=== PATIENT | male | born 1950 | race Caucasian/White ===

== ENCOUNTER → 2023-01-21 | Outpatient (CLI) | payer MEDICARE, OTHER, SELFPAY | END | disposition home or self-care (01) | PROVIDERS: Referring Provider Internal Medicine Cardiovascular Disease; Visit Provider Internal Medicine Cardiovascular Disease | DX: I48.0 Paroxysmal atrial fibrillation (principal) | CPT/HCPCS: 93225; 93226 ==

== ENCOUNTER → 2023-05-26 | Outpatient (CLI) | payer MEDICARE, OTHER, SELFPAY ==
--- OUTSIDE RECORDS SUMMARY | 2023-05-26 06:08 | XMS RPT_ITS | CCD ---
Author Name Unknown Address [address] [place] [address] Organization [facility] Care Team Providers Care Lithographic Artist Name Role Phone Gwendolyn Ricketts Primary Care Provider GWENDOLYN RICKETTS Primary Care Unavailable BEVERLY WHARTON Referring Unavailable BHUMI CAAL Attending Unavailab ENZO Morrell BABY Admitting Unavailable GWENDOLYN RICKETTS Primary Care Unavailable BEVERLY WHARTON Attending Unavailable BEVERLY WHARTON Admitting Unavailable Rodri Dodson DO Unavailable Tamara Chapa Primary Care Provider Rodri Dodson DO Unavailable Snaa CASPER Tamara Primary Care Provider CAMILA CASTANEDA MD Attending Unavailable SANA, TAMARA PAC Consulting Unavailable CAMILA CASTANEDA MD Admitting Unavailable CAMILA CASTANEDA MD Primary Care Unavailable PROVIDER, UNKNOWN Consulting Unavailable CAMILA CASTANEDA MD Attending Unavailable SANA, TAMARA PAC Consulting Unavailable CAMILA CASTANEDA MD Admitting Unavailable CAMILA CASTANEDA MD Primary Care Unavailable PROVIDER, UNKNOWN Consulting Unavailable CAMILA CASTANEDA MD Admitting Unavailable CAMILA CASTANEDA MD Primary Care Unavailable CAMILA CASTANEDA MD Attending Unavailable CAMILA CASTANEDA MD Attending Unavailable HOOD, TAMARA PAC Consulting Unavailable CAMILA CASTANEDA MD Admitting Unavailable CAMILA CASTANEDA MD Primary Care Unavailable PROVIDER, UNKNOWN Consulting Unavailable CAMILA CASTANEDA MD Admitting Unavailable CAMILA CASTANEDA MD Primary Care Unavailable CAMILA CASTANEDA MD Attending Unavailable SHAWNA CHASE Admitting Unavailable SHAWNA CHASE Primary Care Unavailable SHAWNA CHASE Attending Unavailable HOOD, TAMARA PAC Consulting Unavailable HOOD, TAMARA PAC Attending Unavailable HOOD, TAMARA PAC Admitting Unavailable HOOD, TAMARA PAC Primary Care Unavailable PROVIDER, UNKNOWN Consulting Unavailable KEITH CORDERO, DR JAM Newby Attending Kiesha brumfield HOOD PA-C, TAMARA J Primary Care Unavailable RODRI DODSON Attending Unavailable HOOD, TAMARA Primary Care Unavailable RODRI DODSON Attending Unavailable HOOD, TAMARA Primary Care Unavailable RODRI DODSON Attending Unavailable HOOD, TAMARA Primary Care Unavailable HOOD PA-C, TAMARA Consulting Unavailable RAGNATHAN ELLIOTT, ELLIOTT ~[phone] [facility] Attending Unavailable RAGHUNATHAN ELLIOTT, ELLIOTT ~[phone] [facility] Admitting Unavailable HOOD PA-C, TAMARA Primary Care Unavailable RAGHUNATHAN ELLIOTT, ELLIOTT ~[phone] [facility] Consulting Unavailable HOOD PA-C, TAMARA Consulting Unavailable CAMILA CASTANEDA Admitting Unavailable CAMILA CASTANEDA Attending Unavailable HOOD PA-C~[id number], HOOD TAMARA Primary Care Unavailable HOOD PA-C, TAMARA Consulting Unavailable CAMILA CASTANEDA Consulting Unavailable CAMILA CASTANEDA Consulting Unavailable HOOD PA-C~[id number], HOOD TAMARA Primary Care Unavailable RAGHUNATHAN ELLIOTT, ELLIOTT ~[phone] [facility] Admitting Unavailable RAGHUNATHAN ELLIOTT, ELLIOTT ~[phone] [facility] Attending Unavailable HOOD PA-C, TAMARA Consulting Unavailable HOOD PA-C, TAMARA Consulting Unavailable RAGHUNATHAN ELLIOTT, ELLIOTT ~[phone] [facility] Consulting Unavailable RAGHUNATHAN, ELLIOTT Consulting Unavailable RAGHUNATHAN ELLIOTT, ELLIOTT ~[phone] [facility] Admitting Unavailable HOOD PA-C~[id number], HOOD TAMARA Primary Care Unavailable RAGHUNATHAN ELLIOTT, ELLIOTT ~[phone] [facility] Attending Unavailable HOOD PA-C, TAMARA Consulting Unavailable HOOD PA-C, TAMARA Consulting Unavailable Hood PA-C, Tamara J Unavailable Po CORDERO, Dr. Delacruz Unavailable Gwendolyn Ricketts MD Unavailable Physical Therapy Provider Unavailable Unavai lable [facility], ([place]) Unavailable Hermilo CORDERO, Dr. White Unavailable Dr. Rodri Dodson Unavailable Bindu CORDERO, Dr. Alvarenga Unavailable Dario CORDERO, Dr. Elias ([facility]) A Unavail able Dario CORDERO, Dr. Thakkar Unavailable Dahiana RIZVI, Dr. Radha Harrington Unavailable Hannah CORDERO, Dr. Wyatt Flowers Unavailable Dermatology Provider Unavailable Unavailable Oswald FARM FIELD MANAGER, Vijaya Unavailable Meek CORDERO, Dav Xie Unavailable Dwight FARM FIELD MANAGER, Nathaly Landrum Unavailable Unavailable Kenton FARM FIELD MANAGER, Jing C Unavailable Unavailable Gogoi (scribe), Hemanta Unavailable Unavaila ble Juanito FARM FIELD MANAGER, Radha Unavailable Unavailable Rian STARKEY, Delphine Sanchez Unavailable Eleanor Monae C Unavailable Unavailable Anthony MIRELES, Lyric Unavailable Unavailable Kvng FARM FIELD MANAGER, Edelmira Unavailable Unavailable Ramone FERREIRA, Delphine Meadows Unavailable Unavaila ble Bridger FARM FIELD MANAGER, Salma Unavailable Unavailable Dario FERREIRA, Karuna Unavailable [phone] Yeison FERREIRA, Yanique Cano Unavailable Unavailable Seth FARM FIELD MANAGER, Inna Unavailable Unavailable Mutersbaugh FARM FIELD MANAGER, Alexandria K Unavailable Unavai brissa Jorge PA-C, Namrata J Unavailable [phone] Bakari (Scribe), Ambrosio Unavailable Unavailab le Richert FARM FIELD MANAGER, Renee L Unavailable Unavailab le Tesha FARM FIELD MANAGER, Lauren M Unavailable Unavailab le Sander FARM FIELD MANAGER, Sonia Bradley Unavailable Unavailab lauro Mcintyre MD, Camila Meadows Unavailable Vess FARM FIELD MANAGER, Puja Pena Unavailable Unavailable Wengerd FARM FIELD MANAGER, Gisele Unavailable Unavailabl e Yue FARM FIELD MANAGER, Nasrin Marie Unavailable Unavaila ble Unavailable Unavailable Allergies Allergy Classification Reported Allergen(s) Allergy Type Date of Onset Reaction(s) Facility NEGATED: Highlighted row has been ruled out! (1 source) 12-27-2020 [facility] NEGATED: Highlighted row has been ruled out! (1 source) [facility] NEGATED: Highlighted row has been ruled out! (1 source) 12-27-2020 [facility] NEGATED: Highlighted row has been ruled out! (1 source) [facility] NEGATED: Highlighted row has been ruled out! (1 source) 12-27-2020 [facility] NEGATED: Highlighted row has been ruled out! (1 source) [facility] NEGATED: Highlighted row has been ruled out! (1 source) 12-27-2020 [facility] NEGATED: Highlighted row has been ruled out! (1 source) [facility] NEGATED: Highlighted row has been ruled out! (1 source) 12-27-2020 [facility] NEGATED: Highlighted row has been ruled out! (1 source) [facility] NEGATED: Highlighted row has been ruled out! (1 source) 12-27-2020 [facility] NEGATED: Highlighted row has been ruled out! (1 source) [facility] Medications Current Medications Medication Drug Class(es) Dates Sig (Normalized) Sig (Original) albuterol 90 mcg/actuation inhaler (2 sources) Start: 03-19-2020 take 2 puff(s) by mouth every four hours as needed for wheezing albuterol 90 mcg/actuation inhaler Inhale 2 (two) puffs by mouth every 4 (four) hours as needed for wheezing . 8.5 g 0 03/19/2020 Active Completed/Discontinued Medications Medication Drug Class(es) Dates Sig (Normalized) Sig (Original) acetaminophen 325 mg oral tablet (1 source) Start: 03-18-2020 End: 03-19-2020 take 1 tablet by mouth every four hours as needed 650 mg, Oral, Every 4 hours PRN, mild pain, fever 100.4 F or greater, headaches, Starting 03/18/20 at 1819 [id number] actuat albuterol 0.09 mg/actuat metered dose inhaler (6 sources) beta2-Adrenergic Agonist Start: 09-25-2011 End: 12-03-2011 albuterol 0.833 mg/ml / ipratropium bromide 0.167 mg/ml inhalation solution (8 sources) Anticholinergic, beta2-Adrenergic Agonist Start: 03-20-2022 End: 04-06-2023 Problems Problem Classification Problem Date Documented Da te Episodic/Chronic Acute bronchitis (20 sources) Acute bronchitis; Translations: [Acute bronchitis] 07-10-2014 Episodic Cardiac dysrhythmias (20 sources) Unspecified atrial fibrillation; Translations: [Atrial flutter] Onset: 08-26-2022 04-06-2023 Chronic Chronic obstructive pulmonary disease and bronchiectasis (20 sources) Bronchitis; Translations: [Bronchitis, not specified as acute or chronic] 07-10-2014 Episodic Chronic ulcer of skin (18 sources) Ulcer of toe; Translations: [Non-pressure chronic ulcer of other part of unspecified foot with unspecified severity] 08-10-2018 Chronic Coronary atherosclerosis and other heart disease (20 sources) Atherosclerotic heart disease of [place] coronary artery without angina pectoris; Translations: [Coronary arteriosclerosis] Onset: 08-25-2022 Chronic Deficiency and other anemia (12 sources) Deficiency anemias; Translations: [Nutritional anemia, unspecified] 08-10-2018 Episodic Diabetes mellitus with complications (20 sources) Type 2 diabetes mellitus; Translations: [Type 2 diabetes mellitus with hyperglycemia] 04-06-2023 Chronic Diabetes mellitus without complication (3 sources) Type 2 diabetes mellitus without complications; Translations: [TYPE 2 DM WITHOUT COMPLICATIONS] Onset: 02-26-2023 Chronic Disorders of lipid metabolism (20 sources) Pure hypercholesterolemia, unspecified; Translations: [Hyperlipidemia] Onset: 03-29-2020 04-06-2023 Chronic Disorders of teeth and jaw (18 sources) Dental christian present; Translations: [Other dental procedure status] 12-04-2020 Episodic Essential hypertension (20 sources) Essential (primary) hypertension; Translations: [Benign essential hypertension] Onset: 02-27-2023 07-10-2014 Chronic Fluid and electrolyte disorders (18 sources) Hyperpotassemia 08-10-2018 Episodic Genitourinary symptoms and ill-defined conditions (12 sources) Dysuria; Translations: [Dysuria] 07-10-2014 Episodic Heart valve disorders (1 source) Presence of other heart-valve replacement; Translations: [PRESENCE OTH HEART-VALVE REPLACEMNT] Onset: 08-26-2022 Chronic Heart valve disorders (12 sources) Heart murmur; Translations: [Cardiac murmur, unspecified] 08-10-2018 Episodic Immunizations and screening for infectious disease (20 sources) Requires vaccination; Translations: [Encounter for immunization] 09-27-2019 Episodic Intestinal infection (12 sources) Enteric campylobacteriosis; Translations: [Campylobacter enteritis] 08-10-2018 Episodic Malignant neoplasm without specification of site (3 sources) Malignant neoplastic disease; Translations: [Cancer (HCC)] 03-18-2020 Chronic Mycoses (20 sources) Tinea cruris; Translations: [Tinea cruris] 12-27-2020 Episodic Neoplasms of unspecified nature or uncertain behavior (3 sources) Neoplasm of uncertain behavior of skin; Translations: [Neoplasm of uncertain behavior of skin] Episodic Noninfectious gastroenteritis (12 sources) Gastroenteritis; Translations: [Noninfective gastroenteritis and colitis, unspecified] 07-10-2014 Episodic Nutritional deficiencies (1 source) Vitamin D deficiency, unspecified; Translations: [VITAMIN D DEFICIENCY UNSPECIFIED] Onset: 08-26-2022 Chronic Other aftercare (20 sources) Drug indicated; Translations: [Other carpet floor layer apprentice (current) drug therapy] 07-10-2014 Episodic Other aftercare (20 sources) Long-term current use of insulin; Translations: [inside solar sales consultant (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) use of insulin] 02-20-2023 Episodic Other and unspecified benign neoplasm (2 sources) Senile angioma; Translations: [Hemangioma of skin and subcutaneous tissue] 07-29-2022 Episodic Other connective tissue disease (12 sources) Tendinitis of knee; Translations: [Other specified enthesopathies of unspecified lower limb, excluding foot] 08-10-2018 Episodic Other connective tissue disease (12 sources) Hand pain; Translations: [Pain in left hand] 08-10-2018 Episodic Other diseases of veins and lymphatics (12 sources) Chronic acquired lymphedema; Translations: [Lymphedema, not elsewhere classified] 02-20-2023 Chronic Other gastrointestinal disorders (12 sources) Burping; Translations: [Eructation] 02-20-2023 Episodic Other lower respiratory disease (1 source) Hypoxia; Translations: [Hypoxia] Episodic Other lower respiratory disease (13 sources) Dyspnea; Translations: [Shortness of breath] 02-20-2023 Episodic Other male genital disorders (12 sources) Impotence of organic origin; Translations: [Male erectile dysfunction, unspecified] 08-10-2018 Chronic Other nervous system disorders (6 sources) Carpal tunnel syndrome of left wrist; Translations: [Carpal tunnel syndrome, left upper limb] 04-06-2023 Chronic Other non-epithelial cancer of skin (12 sources) History of squamous cell carcinoma of skin; Translations: [Personal history of other malignant neoplasm of skin] Onset: 01-14-2021 Resolved: 12-13-2020 Episodic Other non-traumatic joint disorders (20 sources) Pain in left knee; Translations: [Pain in joint, lower leg] 12-27-2020 Episodic Other non-traumatic joint disorders (12 sources) Shoulder pain; Translations: [Pain in unspecified shoulder] 08-10-2018 Episodic Other nutritional; endocrine; and metabolic disorders (20 sources) Body mass index 40+ - severely obese; Translations: [Body mass index (BMI) 45.0-49.9, adult] 07-14-2018 Chronic Other nutritional; endocrine; and metabolic disorders (20 sources) Morbid obesity; Translations: [Morbid (severe) obesity due to excess calories] 04-06-2023 Chronic Other nutritional; endocrine; and metabolic disorders (1 source) Overweight; Translations: [OVERWEIGHT] Onset: 02-27-2023 Episodic Other screening for suspected conditions (not mental disorders or infectious disease) (20 sources) Elevated prostate specific antigen [PSA]; Translations: [Patient encounter status] 08-10-2018 Episodic Other skin disorders (15 sources) Actinic keratosis; Translations: [Actinic keratosis] Episodic Other skin disorders (2 sources) Seborrheic keratosis; Translations: [Other seborrheic keratosis] 07-29-2022 Episodic Other skin disorders (12 sources) Skin tag; Translations: [Other hypertrophic disorders of the skin] 08-10-2018 Episodic Other upper respiratory disease (12 sources) Chronic rhinitis; Translations: [Chronic rhinitis] 02-20-2023 Chronic Other upper respiratory infections (20 sources) Sinusitis; Translations: [Chronic sinusitis, unspecified] 04-06-2023 Chronic Other upper respiratory infections (12 sources) Acute sinusitis, unspecified 07-10-2014 Episodic Pneumonia (except that caused by tuberculosis or sexually transmitted disease) (7 sources) Infective pneumonia; Translations: [Pneumonia] 10-25-2018 Episodic Residual codes; unclassified (12 sources) Reduced libido; Translations: [Decreased libido] 08-10-2018 Episodic Residual codes; unclassified (12 sources) Edema 08-10-2018 Episodic Skin and subcutaneous tissue infections (18 sources) Cellulitis; Translations: [Cellulitis, unspecified] 08-10-2018 Episodic Sprains and strains (12 sources) Strain of hamstring muscle; Translations: [Strain of muscle, fascia and tendon of the posterior muscle group at thigh level, right thigh, initial encounter] 08-10-2018 Episodic Thyroid disorders (1 source) Hypothyroidism, unspecified; Translations: [HYPOTHYROIDISM UNSPECIFIED] Onset: 02-27-2023 Chronic Unclassified (5 sources) COVID-19; Translations: [COVID-19] Onset: 03-18-2020 03-18-2020 Unclassified (6 sources) 02-20-2023 Urinary tract infections (12 sources) Urinary tract infectious disease; Translations: [Urinary tract infection, site not specified] 07-10-2014 Episodic Viral infection (20 sources) Other specified viral infection; Translations: [Disease caused by 2019-nCoV] 02-20-2023 Episodic Results Test Name Value Interpretation Reference Range Facil ity Vital Signs Date Time Vital Sign Value Performing Clinician Facility 04-06-2023 08:36-0500 Body height 170.18 cm Delphine Pack RN [facility] 04-06-2023 08:36-0500 Body mass index (BMI) [Ratio] 41.35 kg/m2 Delphine Pack RN [facility] 04-06-2023 08:36-0500 Body surface area Derived from formula 2.28 m2 [facility]. 04-06-2023 08:36-0500 Body weight 119.75 kg Delphine Pack [facility].; [facility]. 04-06-2023 08:36-0500 Diastolic blood pressure 70 mm[Hg] Delphine Pack [facility].; [place] [facility]. 04-06-2023 08:36-0500 Heart rate 75 /min Delphine Pack RN [facility].; [facility]. 04-06-2023 08:36-0500 Systolic blood pressure 108 mm[Hg] Delphine Pack RN [facility].; [facility]. 02-20-2023 14:43-0500 Body height 170.18 cm Lyric Curz MA [facility].; [place] [facility]. 02-20-2023 14:43-0500 Body mass index (BMI) [Ratio] 42.91 kg/m2 Lyric Cruz [facility].; [facility]. 02-20-2023 14:43-0500 Body surface area Derived from formula 2.31 m2 Lyric Cruz MA [facility].; [employer] [facility]. 02-20-2023 14:43-0500 Body weight 124.29 kg Lyric Cruz [facility].; [facility]. 02-20-2023 14:43-0500 Diastolic blood pressure 82 mm[Hg] Lyric Cruz MA [place] [facility].; [employer]. 02-20-2023 14:43-0500 Heart rate 52 /min Lyric Cruz [facility].; [employer]. 02-20-2023 14:43-0500 Inhaled oxygen concentration 20 % Lyric Cruz [facility].; [employer] [facility]. 02-20-2023 14:43-0500 SaO2% (BldA) [Mass fraction] 98 % Lyric Cruz MA [facility], [facility].; [employer] [facility]. 02-20-2023 14:43-0500 Systolic blood pressure 165 mm[Hg] Lyric rCuz MA [facility], [facility].; [employer] 10-06-2022 09:08-0400 Body height 170.18 cm Edelmira Calderon LPN [facility], [facility].; [facility]. 10-06-2022 09:08-0400 Body mass index (BMI) [Ratio] 41.66 kg/m2 Edelmira Calderon LPN [facility], [facility].; [facility] [facility]. 10-06-2022 09:08-0400 Body surface area Derived from formula 2.28 m2 Edelmira Calderon LPN [facility], [facility].; [facility], [facility]. 10-06-2022 09:08-0400 Body weight 120.66 kg Edelmira Calderon LPN [facility].; [employer] [facility]. 10-06-2022 09:08-0400 Diastolic blood pressure 71 mm[Hg] Edelmira Calderon LPN [facility].; [employer] [facility]. 10-06-2022 09:08-0400 Heart rate 61 /min Edelmira Calderon LPN [facility].; [employer] [facility]. 10-06-2022 09:08-0400 Systolic blood pressure 124 mm[Hg] Edelmira Calderon LPN [facility], [facility].; [employer], [facility]. 04-03-2022 09:42-0500 Body height 170.18 cm Lyric Cruz MA [facility], [facility].; [employer], [facility]. 04-03-2022 09:42-0500 Body mass index (BMI) [Ratio] 44.17 kg/m2 Lyric Cruz MA [facility], [facility].; [employer] 04-03-2022 09:42-0500 Body surface area Derived from formula 2.34 m2 Lyric Cruz MA [facility], [facility].; [employer], [employer]. 04-03-2022 09:42-0500 Body weight 127.92 kg Lyric Cruz MA [facility], [facility].; [employer]. 04-03-2022 09:42-0500 Diastolic blood pressure 84 mm[Hg] Lyric Cruz MA [facility], [facility].; [employer] 04-03-2022 09:42-0500 Heart rate 72 /min Lyric Cruz MA [facility], [facility].; [employer] 04-03-2022 09:42-0500 Systolic blood pressure 142 mm[Hg] Lyric Cruz MA [facility], [facility].; [employer] [facility], [facility]. 03-20-2022 09:07-0500 Body height 170.18 cm Lyric Cruz MA [facility], [facility].; [facility] [facility], [facility]. 03-20-2022 09:07-0500 Body mass index (BMI) [Ratio] 45.42 kg/m2 Lyric Cruz MA [facility], [facility].; [employer], [facility]. 03-20-2022 09:07-0500 Body surface area Derived from formula 2.37 m2 Lyric Cruz MA [place] [employer] [facility].; [employer], [employer]. 03-20-2022 09:07-0500 Body weight 131.54 kg Lyric Cruz MA [facility], [facility].; [employer] 03-20-2022 09:07-0500 Diastolic blood pressure 79 mm[Hg] Lyric Cruz MA [facility] [employer] [facility] [employer]. 03-20-2022 09:07-0500 Heart rate 71 /min Lyric Cruz MA [facility] [employer] [facility].; [employer]. 03-20-2022 09:07-0500 Inhaled oxygen concentration 20 % Lyric Cruz MA [employer] [facility].; [facility]. 03-20-2022 09:07-0500 SaO2% (BldA) [Mass fraction] 97 % Lyric Cruz MA [facility] [employer] [facility], [facility].; [employer]. 03-20-2022 09:07-0500 Systolic blood pressure 168 mm[Hg] Lyric Cruz MA [facility] [employer] [facility] [employer].; [facility]. 03-03-2022 09:31-0500 Body height 170.18 cm Delphine Pack RN [employer] [email or web address].; [facility]. 03-03-2022 09:31-0500 Body mass index (BMI) [Ratio] 43.07 kg/m2 Delphine Pack RN [employer] [email or web address].; [facility]. 03-03-2022 09:31-0500 Body surface area Derived from formula 2.32 m2 Delphine Pack RN [employer].; [employer]. 03-03-2022 09:31-0500 Body temperature 97.8 [degF] Delphine Pack RN [employer].; [employer]. 03-03-2022 09:31-0500 Body weight 124.74 kg Delphine Pack RN [employer].; [employer]. 03-03-2022 09:31-0500 Diastolic blood pressure 63 mm[Hg] Delphine Pack RN [employer].; [employer]. 03-03-2022 09:31-0500 Heart rate 65 /min Delphine Pack RN [employer].; [employer]. 03-03-2022 09:31-0500 Inhaled oxygen concentration 20 % Delphine Pack RN [employer].; [employer]. 03-03-2022 09:31-0500 SaO2% (BldA) [Mass fraction] 97 % Delphine Pack RN [employer].; [employer]. 03-03-2022 09:31-0500 Systolic blood pressure 123 mm[Hg] Delphine Pack RN [employer] [employer] 12-17-2021 09:28-0400 Body height 170.18 cm Delphine Pack RN [employer].; [employer]. 12-17-2021 09:28-0400 Body mass index (BMI) [Ratio] 41.66 kg/m2 Delphine Pack RN [facility].; [facility]. 12-17-2021 09:28-0400 Body surface area Derived from formula 2.28 m2 Delphine Pack RN [facility].; [facility]. 12-17-2021 09:28-0400 Body temperature 98 [degF] Delphine Pack RN [facility].; [facility]. 12-17-2021 09:28-0400 Body weight 120.66 kg Delphine Pack RN [facility].; [facility]. 12-17-2021 09:28-0400 Diastolic blood pressure 71 mm[Hg] Delphine Pack RN [facility].; [place] [employer] [facility]. 12-17-2021 09:28-0400 Heart rate 74 /min Delphine Pack RN [facility].; [place] [employer] [facility]. 12-17-2021 09:28-0400 Inhaled oxygen concentration 20 % Delphine Pack RN [facility].; [facility]. 12-17-2021 09:28-0400 SaO2% (BldA) [Mass fraction] 97 % Delphine Pack RN [facility].; [facility] [employer] [facility]. 12-17-2021 09:28-0400 Systolic blood pressure 118 mm[Hg] Delphine Pack RN [facility].; [facility] [employer] [facility]. 10-01-2021 09:58-0400 Body height 170.18 cm Delphine Pack RN [place] [employer] [facility].; [facility] [employer] [facility]. 10-01-2021 09:58-0400 Body mass index (BMI) [Ratio] 42.6 kg/m2 Delphine Pack RN [place] [employer] [facility].; [facility] [facility]. 10-01-2021 09:58-0400 Body surface area Derived from formula 2.3 m2 Delphine Pack RN [facility].; [employer] [facility], [facility]. 10-01-2021 09:58-0400 Body weight 123.38 kg Delphine Pack RN [facility], [facility].; [facility] [facility], Inc. 10-01-2021 09:58-0400 Diastolic blood pressure 72 mm[Hg] Delphine Pack RN [facility], [facility].; [employer] Inc[employer] 10-01-2021 09:58-0400 Heart rate 59 /min Delphine Pack RN [facility].; [employer] 10-01-2021 09:58-0400 Systolic blood pressure 130 mm[Hg] Delphine Pack RN [facility], [facility].; [facility] [facility], Inc. 03-28-2021 10:01-0500 Body height 170.18 cm Salma Sparks LPN [facility], Inc.; [employer] [facility], Inc. 03-28-2021 10:01-0500 Body mass index (BMI) [Ratio] 44.48 kg/m2 Salma Sparks LPN [facility], Inc.; [employer] [facility], Inc. 03-28-2021 10:01-0500 Body surface area Derived from formula 2.35 m2 Salma Sparks LPN [place] [employer] [facility], Inc.; [employer] 03-28-2021 10:01-0500 Body weight 128.82 kg Salma Sparks LPN [place] [employer] [facility], Inc.; [employer] 03-28-2021 10:01-0500 Diastolic blood pressure 75 mm[Hg] Salma Sparks LPN [place] [employer] [facility], [facility].; [employer] [facility], [facility]. 03-28-2021 10:01-0500 Heart rate 76 /min Salma Sparks LPN [place] [employer] [facility], Inc.; [employer] 03-28-2021 10:01-0500 Systolic blood pressure 127 mm[Hg] Salma Sparks LPN [place] [employer] [facility], Inc.; [employer] 12-27-2020 13:44-0400 Body height 170.18 cm Salma Sparks LPN [facility], Inc.; [employer] [facility], [facility]. 12-27-2020 13:44-0400 Body mass index (BMI) [Ratio] 44.32 kg/m2 Salma Sparks LPN [facility], Inc.; [facility] 12-27-2020 13:44-0400 Body surface area Derived from formula 2.34 m2 Salma Sparks LPN [facility], Inc.; [facility], [facility]. 12-27-2020 13:44-0400 Body weight 128.37 kg Salma Sparks LPN [facility], [facility].; [facility], [facility]. 12-27-2020 13:44-0400 Diastolic blood pressure 76 mm[Hg] Salma Sparks LPN [facility], Inc.; [place] [employer] [facility], [facility]. 12-27-2020 13:44-0400 Heart rate 80 /min Salma Sparks LPN [facility], Inc.; [place] [employer] [facility], [facility]. 12-27-2020 13:44-0400 Systolic blood pressure 119 mm[Hg] Salma Sparks LPN [facility], [facility].; [employer] [facility], [facility]. 09-27-2020 08:06-0400 Body height 170.18 cm Edelmira Calderon LPN [facility], [facility].; [place] [employer] [facility], [facility]. 09-27-2020 08:06-0400 Body mass index (BMI) [Ratio] 44.32 kg/m2 Edelmira Calderon LPN [facility], Inc.; [place] [employer] [facility], Inc. 09-27-2020 08:06-0400 Body surface area Derived from formula 2.34 m2 Edelmira Calderon LPN [facility], [facility].; [facility] [facility], [facility]. 09-27-2020 08:06-0400 Body weight 128.37 kg Edelmira Calderon LPN [place] [employer] [facility], [facility].; [place] [employer] [facility], [facility]. 09-27-2020 08:06-0400 Diastolic blood pressure 73 mm[Hg] Edelmira Calderon LPN [facility], Inc.; [facility] [facility], [facility]. 09-27-2020 08:06-0400 Heart rate 76 /min Edelmira Calderon LPN [facility], [facility].; [place] [employer] [facility]. 09-27-2020 08:06-0400 Systolic blood pressure 127 mm[Hg] Edelmira Calderon LPN [facility], [facility].; [place] [employer] [facility], [facility]. 03-29-2020 10:24-0500 Body height 170.18 cm Edelmira Calderon LPN [facility], [facility].; [facility]. 03-29-2020 10:24-0500 Body mass index (BMI) [Ratio] 42.6 kg/m2 Edelmira Calderon LPN [facility], [facility].; [facility], [facility]. 03-29-2020 10:24-0500 Body surface area Derived from formula 2.3 m2 Edelmira Calderon LPN [facility], [facility].; [place] [employer] [facility], [facility]. 03-29-2020 10:24-0500 Body weight 123.38 kg Edelmira Calderon LPN [facility], [facility].; [place] [employer] [facility], [facility]. 03-29-2020 10:24-0500 Diastolic blood pressure 72 mm[Hg] Edelmira Calderon LPN [facility], [facility].; [facility] [facility], [facility]. 03-29-2020 10:24-0500 Heart rate 76 /min Edelmira Calderon LPN [facility], [facility].; [place] [employer] [facility], [facility]. 03-29-2020 10:24-0500 Systolic blood pressure 103 mm[Hg] Edelmira Calderon LPN [facility], [facility].; [place] [employer] [facility], [facility]. 03-19-2020 08:07-0500 Body Temperature 97.5 [degF] [facility] 03-19-2020 08:07-0500 BP Diastolic 72 mm[Hg] [facility] 03-19-2020 08:07-0500 BP Systolic 114 mm[Hg] [facility] 03-19-2020 08:07-0500 Pulse (Heart Rate) 68 /min [facility] 03-19-2020 08:07-0500 Pulse Oximetry 91 % [facility] 03-19-2020 08:07-0500 Respiratory Rate 18 /min [facility] 03-18-2020 16:27-0500 BMI (Body Mass Index) 41.35 kg/m2 [facility] 03-18-2020 16:27-0500 Body weight 127.01 kg [facility] 03-18-2020 16:27-0500 Height 175.3 cm [facility] 03-18-2020 14:15-0500 BP Diastolic 54 mm[Hg] [facility] 03-18-2020 14:15-0500 BP Systolic 125 mm[Hg] [facility] 03-18-2020 14:15-0500 Pulse (Heart Rate) 86 /min [facility] 03-18-2020 14:15-0500 Pulse Oximetry 98 % [facility] 03-18-2020 14:15-0500 Respiratory Rate 18 /min [facility] 03-18-2020 13:34-0500 Respiratory rate 0 /min [facility] 03-18-2020 12:56-0500 BMI (Body Mass Index) 41.35 kg/m2 [facility] 03-18-2020 12:56-0500 Body Temperature 99.1 [degF] [facility] 03-18-2020 12:56-0500 Body weight 127.01 kg [facility] 03-18-2020 12:56-0500 Height 175.3 cm [facility] 10-10-2019 15:35-0400 Body height 170.18 cm Edelmira Calderon LPN [facility], [facility].; [facility]. 10-10-2019 15:35-0400 Body mass index (BMI) [Ratio] 46.52 kg/m2 Edelmira Calderon LPN [facility], [facility].; [facility], [facility]. 10-10-2019 15:35-0400 Body surface area Derived from formula 2.39 m2 Edelmira Calderon LPN [facility], [facility].; [facility], [facility]. 10-10-2019 15:35-0400 Body temperature 98.5 [degF] Edelmira Calderon LPN [facility], [facility].; [facility], [facility]. 10-10-2019 15:35-0400 Body weight 134.72 kg Edelmira Calderon LPN [facility], [facility].; [facility]. 10-10-2019 15:35-0400 Heart rate 80 /min Edelmira Calderon LPN [facility], [facility].; [facility]. 10-10-2019 15:35-0400 Inhaled oxygen concentration 20 % Edelmira Calderon LPN [facility].; [facility]. 10-10-2019 15:35-0400 SaO2% (BldA) [Mass fraction] 98 % Edelmira Calderon LPN [facility], [facility].; [facility]. 09-27-2019 10:49-0400 Body height 170.18 cm [facility]. 09-27-2019 10:49-0400 Body mass index (BMI) [Ratio] 45.89 kg/m2 Edelmira Calderon LPN [facility], [facility].; [facility]. 09-27-2019 10:49-0400 Body surface area Derived from formula 2.38 m2 Edelmira Calderon LPN [facility].; [facility]. 09-27-2019 10:49-0400 Body weight 132.9 kg Edelmira Calderon LPN [facility], [facility].; [facility]. 09-27-2019 10:49-0400 Diastolic blood pressure 79 mm[Hg] Edelmira Calderon LPN [facility], [facility].; [facility]. 09-27-2019 10:49-0400 Heart rate 87 /min Edelmira Calderon LPN [facility], [facility].; [place] [employer] [facility]. 09-27-2019 10:49-0400 Systolic blood pressure 133 mm[Hg] Edelmira Calderon LPN [facility], [facility].; [place] [employer] [facility]. 05-12-2019 08:40-0500 Body height 170.18 cm Edelmira Calderon LPN [facility], [facility].; [place] [employer] [facility], [facility]. 05-12-2019 08:40-0500 Body mass index (BMI) [Ratio] 46.2 kg/m2 Edelmira Calderon LPN [facility], [facility].; [place] [employer] [facility], [facility]. 05-12-2019 08:40-0500 Body surface area Derived from formula 2.39 m2 Edelmira Calderon LPN [facility], Inc.; [employer] [facility], Inc. 05-12-2019 08:40-0500 Body weight 133.81 kg Edelmira Calderon LPN [facility], [facility].; [employer] 05-12-2019 08:40-0500 Diastolic blood pressure 76 mm[Hg] Edelmira Calderon LPN [facility], [facility].; [employer] 05-12-2019 08:40-0500 Heart rate 75 /min Edelmira Calderon LPN [facility], [facility].; [employer] 05-12-2019 08:40-0500 Systolic blood pressure 120 mm[Hg] Edelmira Calderon LPN [facility], [facility].; [employer] 03-28-2019 09:03-0500 Body height 170.18 cm Edelmira Calderon LPN [facility], [facility].; [employer] 03-28-2019 09:03-0500 Body mass index (BMI) [Ratio] 46.05 kg/m2 Edelmira Calderon LPN [place] [employer] [facility], Inc.; [employer] 03-28-2019 09:03-0500 Body surface area Derived from formula 2.38 m2 Edelmira Calderon LPN [place] [employer] [facility], Inc.; [employer] 03-28-2019 09:03-0500 Body weight 133.36 kg Edelmira Calderon LPN [place] [employer] [facility], Inc.; [employer] 03-28-2019 09:03-0500 Diastolic blood pressure 84 mm[Hg] Edelmira Calderon LPN [place] [employer] [facility], Inc.; [employer] 03-28-2019 09:03-0500 Heart rate 72 /min Edelmira Calderon LPN [employer] [facility], Inc.; [employer] 03-28-2019 09:03-0500 Systolic blood pressure 132 mm[Hg] Edelmira Calderon LPN [employer] [facility], Inc.; [employer] 10-25-2018 08:48-0400 Body height 170.18 cm Sonia Boucher LPN [employer] [facility], Inc.; [employer]. 10-25-2018 08:48-0400 Body temperature 97.6 [degF] Sonia Boucher FARM FIELD MANAGER [employer]. 10-25-2018 08:48-0400 Diastolic blood pressure 67 mm[Hg] Sonia Boucher LAUREN [employer].; [employer]. 10-25-2018 08:48-0400 Heart rate 74 /min Sonia Boucher FARM FIELD MANAGER [employer]. 10-25-2018 08:48-0400 Inhaled oxygen concentration 20 % Lilly Sander [facility] [employer]. 10-25-2018 08:48-0400 SaO2% (BldA) [Mass fraction] 96 % Sonia Boucher FARM FIELD MANAGER [employer]. 10-25-2018 08:48-0400 Systolic blood pressure 109 mm[Hg] Sonia Boucher FARM FIELD MANAGER [employer]. 08-10-2018 10:07-0400 Body height 170.18 cm Radha Solomon LPN [employer]. 08-10-2018 10:07-0400 Body mass index (BMI) [Ratio] 43.7 kg/m2 Radha Solomon LPN [employer]. 08-10-2018 10:07-0400 Body surface area Derived from formula 2.33 m2 Radha Solomon LPN [employer]. 08-10-2018 10:07-0400 Body weight 126.55 kg Radha Solomon LPN [employer]. 08-10-2018 10:07-0400 Diastolic blood pressure 63 mm[Hg] Radha Solomon LPN [employer]. 08-10-2018 10:07-0400 Heart rate 52 /min Radha Solomon LPN [employer]. 08-10-2018 10:07-0400 Systolic blood pressure 111 mm[Hg] Radha Juanito FARM FIELD MANAGER [employer] [facility], Inc.; [employer] 02-22-2018 09:09-0500 Body height 170.18 cm Sonia Boucher [facility] [employer] [facility], Inc.; [employer] 02-22-2018 09:09-0500 Body mass index (BMI) [Ratio] 43.07 kg/m2 [facility] Sander [facility] [employer] [facility], Inc.; [employer] 02-22-2018 09:09-0500 Body surface area Derived from formula 2.32 m2 [facility] SanderSUNY Down[facility] Medical CenterRedCloud Security [facility], Inc.; [employer], [employer]. 02-22-2018 09:09-0500 Body temperature 97.9 [degF] Lilly Stuckey [facility], Inc.; [employer], [employer]. 02-22-2018 09:09-0500 Body weight 124.74 kg LillyMirna Boucher [facility] Center[facility], Inc.; [employer], [employer]. 02-22-2018 09:09-0500 Diastolic blood pressure 77 mm[Hg] Lilly Sander [facility] Center[facility], Inc.; [employer], [employer]. 02-22-2018 09:09-0500 Heart rate 69 /min [facility] Sander [facility] CenterRed[facility], Inc.; [employer], [employer]. 02-22-2018 09:09-0500 Inhaled oxygen concentration 20 % [facility] Sander [facility] [employer] [facility], Inc.; [employer]. 02-22-2018 09:09-0500 SaO2% (BldA) [Mass fraction] 98 % [facility] RelampagoSUNY [facility] Medical CenterYooLotto, Inc.; [employer], [employer]. 02-22-2018 09:09-0500 Systolic blood pressure 120 mm[Hg] [facility] Sander [facility] Center[facility], Inc.; [employer] 07-31-2017 09:12-0400 Body height 170.18 cm Delphine Pack RN [place] [employer]. 07-31-2017 09:12-0400 Body mass index (BMI) [Ratio] 46.2 kg/m2 Delphine Pack RN [employer], [employer].; [employer] 07-31-2017 09:12-0400 Body surface area Derived from formula 2.39 m2 Delphine Pack RN [employer], [employer].; [employer] 07-31-2017 09:12-0400 Body weight 133.81 kg Delphine Pack RN [employer] 07-31-2017 09:12-0400 Diastolic blood pressure 76 mm[Hg] Delphine Pack RN [employer].; [employer] 07-31-2017 09:12-0400 Heart rate 61 /min Delphine Pack RN [employer].; [employer] 07-31-2017 09:120400 Systolic blood pressure 115 mm[Hg] Delphine Pack RN [employer].; [employer] 11-16-2015 15:23-0400 Body height 170.18 cm Nasrin Turner LPN [employer] 11-16-2015 15:23-0400 Body mass index (BMI) [Ratio] 40.56 kg/m2 Nasrin Turner LPN [employer], [employer].; [employer] 11-16-2015 15:23-0400 Body surface area Derived from formula 2.26 m2 Nasrin Turner LPN [employer], [employer].; [employer]. 11-16-2015 15:23-0400 Body weight 117.48 kg Nasrin Turner LPN [employer].; [employer] 11-16-2015 15:23-0400 Diastolic blood pressure 69 mm[Hg] Nasrin Turner LPN [employer].; [employer] 11-16-2015 15:23-0400 Heart rate 76 /min Nasrin Turner LPN [employer].; [employer] 11-16-2015 15:23-0400 Systolic blood pressure 122 mm[Hg] Nasrin Turner LPN [employer] [facility], Inc.; [employer] 08-17-2015 09:37-0400 Body height 170.18 cm Nasrin Turner LPN [employer] [facility], Inc.; [employer] 08-17-2015 09:37-0400 Body mass index (BMI) [Ratio] 39.78 kg/m2 Nasrin Turner LPN [employer] [facility], Inc.; [employer] 08-17-2015 09:37-0400 Body surface area Derived from formula 2.24 m2 Nasrin Turner LPN [employer] [facility], Inc.; [employer] 08-17-2015 09:37-0400 Body temperature 97.6 [degF] Nasrin Turner FARM FIELD MANAGER [employer] [facility], Inc.; [employer] 08-17-2015 09:37-0400 Body weight 115.21 kg Nasrin Turner LPN [employer] [facility], Inc.; [employer] 08-17-2015 09:37-0400 Diastolic blood pressure 75 mm[Hg] Nasrin Turner LPN [employer] [facility], Inc.; [employer], [employer]. 08-17-2015 09:37-0400 Heart rate 71 /min Nasrin Turner LPN [employer] [facility], Inc.; [employer] 08-17-2015 09:37-0400 Systolic blood pressure 135 mm[Hg] Nasrin Turner LPN [employer] [facility], Inc.; [employer], [employer] 06-14-2015 10:26-0400 Body height 170.18 cm Sonia Bradley Sander [facility] CenterYooL[facility], Inc.; [employer], [employer] 06-14-2015 10:26-0400 Body mass index (BMI) [Ratio] 43.07 kg/m2 Lilly Sander FARM FIELD MANAGER [employer], [employer].; [employer] 06-14-2015 10:26-0400 Body surface area Derived from formula 2.32 m2 LillyMirna Boucher LAUREN [employer] [facility], Inc.; [employer] 06-14-2015 10:0400 Body weight 124.74 kg Sonia Boucher FARM FIELD MANAGER [employer] [facility], Inc.; [employer] 06-14-2015 10:260400 Diastolic blood pressure 74 mm[Hg] Sonia Bradley Sander [facility] CenterRed[facility], Inc.; [employer], [employer]. 06-14-2015 10:26-0400 Heart rate 73 /min Sonia Boucher [facility] CenterRed[facility], Inc.; [employer], [employer]. 06-14-2015 10:0400 Systolic blood pressure 113 mm[Hg] Sonia Boucher LAUREN [employer] [facility], Inc.; [employer], [employer]. 09-11-2014 10:0400 Body height 170.18 cm Nasrin Turner LPN [employer] [facility], Inc.; [employer] 09-11-2014 10:0400 Body mass index (BMI) [Ratio] 38.84 kg/m2 Nasrin Turner LPN [employer] [facility], Inc.; [employer], [employer]. 09-11-2014 10:0400 Body surface area Derived from formula 2.22 m2 Nasrin Turner LPN [employer] [facility], Inc.; [employer], [employer]. 09-11-2014 10:0400 Body weight 112.49 kg Nasrin Turner LPN [employer] [facility], Inc.; [employer]. 09-11-2014 10:0400 Diastolic blood pressure 63 mm[Hg] Nasrin Turner LPN [employer] [facility], Inc.; [employer]. 09-11-2014 10:0400 Heart rate 56 /min Nasrin Turner LPN [employer] [facility], Inc.; [employer]. 09-11-2014 10:0400 Systolic blood pressure 107 mm[Hg] Nasrin Turner LPN [employer] [facility], Inc.; [employer]. 08-07-2014 10:290400 Body height 170.18 cm Sonia Boucher LAUREN [employer] [facility], Inc.; [employer] 08-07-2014 10:29-0400 Body mass index (BMI) [Ratio] 39 kg/m2 Sonia Boucher FARM FIELD MANAGER [facility], Inc.; [employer], [employer] 08-07-2014 10:29-0400 Body surface area Derived from formula 2.22 m2 Sonia Boucher FARM FIELD MANAGER [place] [employer] [facility], Inc.; [employer], [employer]. 08-07-2014 10:290400 Body weight 112.95 kg Sonia Boucher LAUREN [facility], Inc.; [employer], [employer]. 08-07-2014 10:29-0400 Diastolic blood pressure 67 mm[Hg] Sonia Boucher [facility] [employer] [facility], Inc.; [employer]. 08-07-2014 10:290400 Heart rate 60 /min Sonia Boucher [facility] [employer] [facility], Inc.; [employer]. 08-07-2014 10:29-0400 Systolic blood pressure 108 mm[Hg] Sonia Boucher FARM FIELD MANAGER [employer] [facility], Inc.; [employer]. 07-10-2014 08:240400 Body height 171.45 cm Gisele Miramontes LPN [place] [employer] [facility], Inc.; [employer] 07-10-2014 08:24-0400 Body mass index (BMI) [Ratio] 39.99 kg/m2 Gisele Miramontes LPN [place] [employer] [facility], Inc.; [employer]. 07-10-2014 08:240400 Body surface area Derived from formula 2.27 m2 Gisele Miramontes LPN [employer] [facility] [facility], Inc.; [employer], Inc. 07-10-2014 08:240400 Body weight 117.54 kg iGsele Miramontes LPN [place] [employer] Inc.; [employer], Inc. 07-10-2014 08:24-0400 Diastolic blood pressure 64 mm[Hg] Gisele Miramontes LPN [place] [employer] [facility], Inc.; [employer], Inc. 07-10-2014 08:24-0400 Heart rate 58 /min Gisele Kulwinder AGUILAR [facility], Inc.; [employer], Inc. 07-10-2014 08:24-0400 Systolic blood pressure 108 mm[Hg] Gisele Kulwinder AGUILAR [facility], Inc.; [employer], Inc. 06-13-2014 10:43-0400 Body height 171.45 cm Nasrin Turner FARM FIELD MANAGER [employer] [facility], Inc.; [employer], Inc. 06-13-2014 10:43-0400 Body mass index (BMI) [Ratio] 41.82 kg/m2 Nasrin Turner FARM FIELD MANAGER [employer] [facility], Inc.; [employer], Inc. 06-13-2014 10:43-0400 Body surface area Derived from formula 2.31 m2 Nasrin Turner LPN [employer] [facility], Inc.; [employer], Inc. 06-13-2014 10:43-0400 Body weight 122.93 kg Nasrin Turner LPN [employer] [facility], Inc.; [employer], Inc. 06-13-2014 10:43-0400 Diastolic blood pressure 73 mm[Hg] Nasrin Turner FARM FIELD MANAGER [employer] [facility], Inc.; [employer], Inc. 06-13-2014 10:43-0400 Heart rate 57 /min Nasrin Turner LPN [employer] [facility], Inc.; [employer], Inc. 06-13-2014 10:43-0400 Systolic blood pressure 127 mm[Hg] Nasrin Turner LPN [employer] [facility], Inc.; [employer], Inc. 05-15-2014 11:17-0500 Body height 171.45 cm Nasrin Turner LPN [employer] [facility], Inc.; [employer], Inc. 05-15-2014 11:17-0500 Body mass index (BMI) [Ratio] 43.36 kg/m2 Nasrin Turner LPN [employer] [facility], Inc.; [employer], Inc. 05-15-2014 11:17-0500 Body surface area Derived from formula 2.35 m2 Nasrin Turner FARM FIELD MANAGER [employer], Inc.; [employer], Inc. 05-15-2014 11:17-0500 Body weight 127.46 kg Nasrin Turner LPN [employer], Inc.; [employer], Inc. 05-15-2014 11:17-0500 Diastolic blood pressure 69 mm[Hg] Nasrin Turner LPN [employer], [employer].; [employer], Inc. 05-15-2014 11:17-0500 Heart rate 63 /min Nasrin Turner LPN [employer], Inc.; [employer], [employer]. 05-15-2014 11:17-0500 Systolic blood pressure 121 mm[Hg] Nasrin Turner LPN [employer], Inc.; [employer], [employer]. 04-24-2014 10:53-0500 Body height 171.45 cm Sonia Bradley Relampago FARM FIELD MANAGER [employer], Inc.; [employer], Inc. 04-24-2014 10:53-0500 Body mass index (BMI) [Ratio] 45.21 kg/m2 Sonia Bradley [facility] Inc.; [employer], Inc. 04-24-2014 10:53-0500 Body surface area Derived from formula 2.39 m2 Lilly Relampago FARM FIELD MANAGER [employer], Inc.; [employer], Inc. 04-24-2014 10:53-0500 Body weight 132.9 kg Sonia Boucher [facility] [employer], Inc.; [employer], Inc. 04-24-2014 10:53-0500 Diastolic blood pressure 75 mm[Hg] Sonia Bradley Sander LAUREN [employer], Inc.; [employer], Inc. 04-24-2014 10:53-0500 Heart rate 67 /min Sonia Boucher [facility] [facility] [employer], Inc.; [employer], Inc. 04-24-2014 10:53-0500 Systolic blood pressure 107 mm[Hg] Sonia Bradley Sander LAUREN [employer], Inc.; [employer], Inc. 04-03-2014 11:09-0500 Body height 171.45 cm Nasrin Turner LPN [employer], Inc.; [employer]. 04-03-2014 11:09-0500 Body mass index (BMI) [Ratio] 48.3 kg/m2 Nasrin Caron Turner LPN [employer], [employer].; [employer], Inc. 04-03-2014 11:09-0500 Body surface area Derived from formula 2.46 m2 Nasrin Caron Turner LPN [employer], [employer].; [employer], Inc. 04-03-2014 11:09-0500 Body weight 141.98 kg Nasrin Caron Turner FARM FIELD MANAGER [employer], Inc.; [employer], [employer]. 04-03-2014 11:09-0500 Diastolic blood pressure 90 mm[Hg] Nasrin Caron Turner FARM FIELD MANAGER [employer], Inc.; [employer], Inc. 04-03-2014 11:09-0500 Heart rate 77 /min Nasrin Caron Turner FARM FIELD MANAGER [employer], Inc.; [employer], Inc. 04-03-2014 11:09-0500 Systolic blood pressure 136 mm[Hg] Nasrin Caron Turner LPN [employer], [employer].; [employer], Inc. 02-21-2014 11:38-0500 Body height 171.45 cm Nasrin Caron Turner FARM FIELD MANAGER [employer], Inc.; [employer], Inc. 02-21-2014 11:38-0500 Body mass index (BMI) [Ratio] 48.45 kg/m2 Nasrin Caron Turner FARM FIELD MANAGER [employer], Inc.; [employer], Inc. 02-21-2014 11:38-0500 Body surface area Derived from formula 2.46 m2 Nasrin Caron Turner LPN [employer], Inc.; [employer], [employer]. 02-21-2014 11:38-0500 Body weight 142.43 kg Nasrin Caron Turner FARM FIELD MANAGER [employer], Inc.; [employer], [employer]. 02-21-2014 11:38-0500 Diastolic blood pressure 82 mm[Hg] Nasrin Caron Turner LPN [employer], Inc.; [employer], [employer]. 02-21-2014 11:38-0500 Heart rate 79 /min Narsin Caron Turner LPN [employer], Inc.; [employer], Inc. 02-21-2014 11:38-0500 Systolic blood pressure 108 mm[Hg] Nasrindiana Turner [facility] [employer] [facility], Inc.; [employer], Inc. 01-05-2014 13:37-0400 Body height 171.45 cm Gisele Lindertodd [facility] [employer] [facility], Inc.; [employer], Inc. 01-05-2014 13:37-0400 Body mass index (BMI) [Ratio] 48.22 kg/m2 Gisele Kailashtodd [facility], Inc.; [employer], Inc. 01-05-2014 13:37-0400 Body surface area Derived from formula 2.46 m2 Gisele Kailashtodd [facility] [employer] [facility], Inc.; [employer], Inc. 01-05-2014 13:37-0400 Body weight 141.75 kg Gisele Kailashtodd [facility], Inc.; [employer], Inc. 12-05-2013 10:52-0400 Body height 171.45 cm Sonia Boucher [facility], Inc.; [employer], Inc. 12-05-2013 10:52-0400 Body mass index (BMI) [Ratio] 47.84 kg/m2 Lilly Stuckey [facility], Inc.; [employer], Inc. 12-05-2013 10:52-0400 Body surface area Derived from formula 2.45 m2 Sonia Zimmeruckey [facility] Center[facility], Inc.; [employer], Inc. 12-05-2013 10:52-0400 Body weight 140.62 kg Sonia Boucher [facility] Center[facility], Inc.; Press[employer], [employer]. 12-05-2013 10:52-0400 Diastolic blood pressure 83 mm[Hg] Sonia Boucher [facility], Inc.; [employer], Inc. 12-05-2013 10:52-0400 Heart rate 63 /min [facility] Sander [facility] Center[facility], Inc.; [employer], Inc. 12-05-2013 10:52-0400 Systolic blood pressure 124 mm[Hg] Sonia Boucher LAUREN [employer] [facility], Inc.; [employer], Inc. 11-25-2013 11:42-0400 Body height 171.45 cm Nasrin Turner FARM FIELD MANAGER [employer] [facility], Inc.; [employer], Inc. 11-25-2013 11:42-0400 Body mass index (BMI) [Ratio] 48.92 kg/m2 Nasrin Turner FARM FIELD MANAGER [employer] [facility], Inc.; [employer], Inc. 11-25-2013 11:42-0400 Body surface area Derived from formula 2.47 m2 Nasrin Turner [facility], Inc.; [employer], Inc. 11-25-2013 11:42-0400 Body temperature 98.3 [degF] Nasrin Turner FARM FIELD MANAGER [employer], Inc.; [employer], Inc. 11-25-2013 11:42-0400 Body weight 143.79 kg Nasrin Turner FARM FIELD MANAGER [employer] [facility], Inc.; [employer], Inc. 11-25-2013 11:42-0400 Diastolic blood pressure 75 mm[Hg] Nasrin Turner [facility], Inc.; [employer], Inc. 11-25-2013 11:42-0400 Heart rate 65 /min Nasrin Turner FARM FIELD MANAGER [employer] [facility], Inc.; [employer], Inc. 11-25-2013 11:42-0400 Systolic blood pressure 121 mm[Hg] Nasrin Turner LPN [employer] [facility], Inc.; [employer], Inc. 11-18-2013 13:27-0400 Body height 171.45 cm Nasrin Turner FARM FIELD MANAGER [employer], Inc.; [employer], [employer]. 11-18-2013 13:27-0400 Body mass index (BMI) [Ratio] 47.22 kg/m2 Nasrin Turner FARM FIELD MANAGER [employer], Inc.; [employer], Inc. 11-18-2013 13:27-0400 Body surface area Derived from formula 2.44 m2 Nasrin Turner FARM FIELD MANAGER [employer], Inc.; [employer], Inc. 11-18-2013 13:27-0400 Body weight 138.8 kg Nasrinkim Turner LPN [employer] [facility], Inc.; [employer], Inc. 11-18-2013 13:27-0400 Diastolic blood pressure 74 mm[Hg] Nasrin Turner LPN [employer] [facility], Inc.; [employer], Inc. 11-18-2013 13:27-0400 Heart rate 77 /min Nasrin Turner LPN [employer], Inc.; [employer], Inc. 11-18-2013 13:27-0400 Systolic blood pressure 104 mm[Hg] Nasrin Turner LPN [employer] [facility], Inc.; [employer], Inc. 08-25-2013 10:59-0400 Body height 171.45 cm Nasrin Turner LPN [employer] [facility], Inc.; [employer], Inc. 08-25-2013 10:59-0400 Body mass index (BMI) [Ratio] 48.61 kg/m2 Nasrin Turner LPN [employer] [facility], Inc.; [employer], Inc. 08-25-2013 10:59-0400 Body surface area Derived from formula 2.47 m2 Nasrin Turner LPN [employer], [employer].; [employer], Inc. 08-25-2013 10:59-0400 Body weight 142.88 kg Nasrin Turner LPN [employer], [employer].; [employer], Inc. 08-25-2013 10:59-0400 Diastolic blood pressure 87 mm[Hg] Nasrin Turner LPN [employer], [employer].; [employer], Inc. 08-25-2013 10:59-0400 Heart rate 79 /min Nasrin Turner LPN [employer], [employer].; [employer], [employer]. 08-25-2013 10:59-0400 Systolic blood pressure 134 mm[Hg] Nasrin Caron Turner LPN [employer], [employer].; [employer], [employer]. 06-10-2013 11:48-0400 Body height 171.45 cm Nasrin Turner LPN [employer], [employer].; [employer], Inc. 06-10-2013 11:48-0400 Body mass index (BMI) [Ratio] 49.38 kg/m2 Nasrin Caron Turner LPN [employer] [facility], Inc.; [employer], Inc. 06-10-2013 11:48-0400 Body surface area Derived from formula 2.48 m2 Nasrindiana Turner LPN [employer] [facility], Inc.; [employer], Inc. 06-10-2013 11:48-0400 Body weight 145.15 kg Nasrin Caron Turner LPN [employer] [facility], Inc.; [employer], Inc. 06-10-2013 11:48-0400 Diastolic blood pressure 94 mm[Hg] Nasrin Turner [facility]PLo[facility]ace Medical CenterRedCloud Security [facility], Inc.; [employer], Inc. 06-10-2013 11:48-0400 Heart rate 73 /min Nasrin Turner LPN [employer] [facility], Inc.; [employer], Inc. 06-10-2013 11:48-0400 Systolic blood pressure 148 mm[Hg] Nasrin Turner LPN [employer] [facility], Inc.; [employer], Inc. 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 06-06-2013 10:13-0400 Body mass index (BMI) [Ratio] 49.53 kg/m2 Sonia Bradley Sander LAUREN [employer] [facility], Inc.; [employer], Inc. 06-06-2013 10:13-0400 Body surface area Derived from formula 2.49 m2 Sonia Boucher LAUREN [employer] [facility], Inc.; [employer], Inc. 06-06-2013 10:13-0400 Body weight 145.61 kg Sonia Boucher FARM FIELD MANAGER [employer], Inc.; [employer], Inc. 06-06-2013 10:13-0400 Diastolic blood pressure 88 mm[Hg] Sonia Bradley Sander LAUREN [employer] [facility], Inc.; [employer], Inc. 06-06-2013 10:13-0400 Heart rate 75 /min Sonia Boucher LAUREN [employer], Inc.; [employer]. 06-06-2013 10:13-0400 Systolic blood pressure 148 mm[Hg] Sonia Boucher LAUREN [employer] [facility], Inc.; [employer], Inc. 03-18-2013 11:03-0500 Body height 171.45 cm Lauren Zaldivar Tesha [facility] Center[facility], Inc.; [employer]. 03-18-2013 11:03-0500 Body mass index (BMI) [Ratio] 49.84 kg/m2 Lauren Zaldivar Tesha [facility] CenterRed[facility], Inc.; [employer], [employer]. 03-18-2013 11:03-0500 Body surface area Derived from formula 2.49 m2 Lauren M Tesha [facility] CenterYooL[facility], Inc.; [employer], [employer]. 03-18-2013 11:03-0500 Body weight 146.51 kg Lauren M Tesha [facility] CenterY[facility], Inc.; [employer], [employer]. 03-18-2013 11:03-0500 Diastolic blood pressure 77 mm[Hg] Lauren M Tesha [facility] Center[facility], Inc.; [employer], [employer]. 03-18-2013 11:03-0500 Heart rate 74 /min Lauren M Tesha [facility] Center[facility], Inc.; [employer], [employer]. 03-18-2013 11:03-0500 Systolic blood pressure 164 mm[Hg] Lauren M Tesha [facility] Center[facility], Inc.; [employer], [employer]. 01-31-2013 10:16-0500 Body height 172.09 cm Nasrin Turner LPN [employer], [employer].; [employer]. 01-31-2013 10:16-0500 Body mass index (BMI) [Ratio] 49.78 kg/m2 Nasrin Turner LPN [employer], Inc.; [employer], Inc. 01-31-2013 10:16-0500 Body surface area Derived from formula 2.51 m2 Nasrin Turner LPN [employer], [employer].; [employer]. 01-31-2013 10:16-0500 Body weight 147.42 kg Nasrin Echolsmore FARM FIELD MANAGER [employer] [facility], Inc.; [employer], Inc. 01-31-2013 10:16-0500 Diastolic blood pressure 76 mm[Hg] Nasrin Turner LPN [employer] [facility], Inc.; [employer], Inc. 01-31-2013 10:16-0500 Heart rate 74 /min Nasrin Turner LPN [employer] [facility], Inc.; [employer], Inc. 01-31-2013 10:16-0500 Systolic blood pressure 153 mm[Hg] Nasrin Turner LPN [employer] [facility], Inc.; [employer], Inc. 11-05-2012 11:12-0400 Body height 172.09 cm Nasrin Turner LPN [employer] [facility], Inc.; [employer], Inc. 11-05-2012 11:12-0400 Body mass index (BMI) [Ratio] 49.63 kg/m2 Nasrin Turner LPN [employer], Inc.; [employer], Inc. 11-05-2012 11:12-0400 Body surface area Derived from formula 2.5 m2 Nasrin Turner LPN [employer], Inc.; [employer], [employer]. 11-05-2012 11:12-0400 Body weight 146.97 kg Nasrin Turner LPN [employer], [employer].; [employer], Inc. 11-05-2012 11:12-0400 Diastolic blood pressure 88 mm[Hg] Nasrin Turner LPN [employer], [employer].; [employer], Inc. 11-05-2012 11:12-0400 Heart rate 73 /min Nasrin Turner LPN [employer], [employer].; [employer], [employer]. 11-05-2012 11:12-0400 Systolic blood pressure 159 mm[Hg] Nasrin Turner LPN [employer], [employer].; [employer], [employer]. 08-02-2012 10:55-0400 Body height 172.09 cm Nasrin Turner LPN [employer], [employer].; [employer], [employer]. 08-02-2012 10:55-0400 Body mass index (BMI) [Ratio] 49.32 kg/m2 Nasrin Caron Turner LPN [facility], Inc.; [employer], Inc. 08-02-2012 10:55-0400 Body surface area Derived from formula 2.5 m2 Nasrin Caron Turner LPN [facility], Inc.; [employer], Inc. 08-02-2012 10:55-0400 Body weight 146.06 kg Nasrin Caron Turner FARM FIELD MANAGER [employer] [facility], Inc.; [employer], Inc. 08-02-2012 10:55-0400 Diastolic blood pressure 73 mm[Hg] Nasrin Caron Turner FARM FIELD MANAGER [employer] [facility], Inc.; [employer], Inc. 08-02-2012 10:55-0400 Heart rate 72 /min Nasrin Turner FARM FIELD MANAGER [employer] [facility], Inc.; [employer], Inc. 08-02-2012 10:55-0400 Systolic blood pressure 134 mm[Hg] Nasrin Turner FARM FIELD MANAGER [employer] [facility], Inc.; [employer], Inc. 03-31-2012 11:07-0500 Body height 172.09 cm Nasrin Caron Turner FARM FIELD MANAGER [employer] [facility], Inc.; [employer], Inc. 03-31-2012 11:07-0500 Body mass index (BMI) [Ratio] 49.63 kg/m2 Nasrin Caron Turner LPN [employer] [facility], Inc.; [employer], Inc. 03-31-2012 11:07-0500 Body surface area Derived from formula 2.5 m2 Nasrin Turner LPN [employer] [facility], Inc.; [employer], Inc. 03-31-2012 11:07-0500 Body weight 146.97 kg Nasrin Caron Turner FARM FIELD MANAGER [employer], [employer].; [employer], Inc. 03-31-2012 11:07-0500 Diastolic blood pressure 69 mm[Hg] Nasrin Caron Turner LPN [employer], [employer].; [employer], Inc. 03-31-2012 11:07-0500 Heart rate 79 /min Nasrinkim Turner FARM FIELD MANAGER [employer], Inc.; [employer], Inc. 03-31-2012 11:07-0500 Systolic blood pressure 132 mm[Hg] Nasrin Turner LPN [facility], Inc.; [employer] [facility] [email or web address]. 12-18-2011 11:44-0400 Body height 172.09 cm Gisele Kailashtodd [facility].; [employer]. 12-18-2011 11:44-0400 Body mass index (BMI) [Ratio] 49.24 kg/m2 Gisele Miramontes [facility], [facility].; [employer]., [facility]. 12-18-2011 11:44-0400 Body surface area Derived from formula 2.49 m2 Gisele Kailashtodd [facility], [facility].; [employer], [employer]., [employer]. 12-18-2011 11:44-0400 Body temperature 98.6 [degF] Giselejyoti Miramontes FARM FIELD MANAGER [facility], Inc.; [employer]. 12-18-2011 11:44-0400 Body weight 145.83 kg [facility]isele [facility]htodd [facility] [employer] [facility], [facility].; [employer]. 12-18-2011 11:44-0400 Diastolic blood pressure 74 mm[Hg] Giselejyoti Miramontes [facility] [employer] [facility], Inc.; [employer], [employer]. 12-18-2011 11:44-0400 Heart rate 79 /min Gisele Kailashtodd FARM FIELD MANAGER [place] [employer] [facility], Inc.; [employer]. 12-18-2011 11:44-0400 Inhaled oxygen concentration 20 % Gisele Miramontes [facility], [facility].; [employer]. 12-18-2011 11:44-0400 SaO2% (BldA) [Mass fraction] 96 % Gisele Kailashtodd [facility] [employer] [facility], [facility].; [employer]. 12-18-2011 11:44-0400 Systolic blood pressure 110 mm[Hg] Gisele Miramontes LPN [place] [employer] [facility], Inc.; [employer]. 12-03-2011 11:09-0400 Body height 172.09 cm Nasrin Turner FARM FIELD MANAGER [place] [employer] [facility] [email or web address].; [employer] 12-03-2011 11:09-0400 Body mass index (BMI) [Ratio] 49.78 kg/m2 Nasrin Turner LPN [employer] [facility], Inc.; [employer], Inc. 12-03-2011 11:09-0400 Body surface area Derived from formula 2.51 m2 Nasrin Turner LPN [employer] [facility], Inc.; [employer], Inc. 12-03-2011 11:09-0400 Body weight 147.42 kg Nasrin Turner LPN [employer] [facility], [facility].; [employer], Inc. 12-03-2011 11:09-0400 Diastolic blood pressure 73 mm[Hg] Nasrin Turner LPN [employer], [employer].; [employer], Inc. 12-03-2011 11:09-0400 Heart rate 75 /min Nasrin Turner LPN [employer], Inc.; [employer], [employer]. 12-03-2011 11:09-0400 Systolic blood pressure 131 mm[Hg] Nasrin Turner LPN [employer] Inc.; [employer], Inc. 11-05-2011 11:42-0400 Body temperature 99.7 [degF] Vijaya Oswald FARM FIELD MANAGER Work Phone: [employer].; [employer], [employer]. 11-05-2011 11:42-0400 Body weight 146.97 kg Vijaya Oswald FARM FIELD MANAGER Work Phone: [employer].; [employer] 11-05-2011 11:42-0400 Diastolic blood pressure 70 mm[Hg] Vijaya Oswald FARM FIELD MANAGER Work Phone: [employer].; [employer], [employer]. 11-05-2011 11:42-0400 Heart rate 89 /min Vijaya Oswald FARM FIELD MANAGER Work Phone: [employer].; [employer], [employer]. 11-05-2011 11:42-0400 Systolic blood pressure 107 mm[Hg] Vijaya Oswald FARM FIELD MANAGER Work Phone: [facility].; [employer] [facility] CenterBoxCat [facility]. 09-25-2011 13:41-0400 Body height 172.09 cm Gisele Torresrohit AGUILAR [facility], [facility].; [facility]. 09-25-2011 13:41-0400 Body mass index (BMI) [Ratio] 50.43 kg/m2 Gisele Lindertodd [facility], [facility].; [place] [employer] [facility]. 09-25-2011 13:41-0400 Body surface area Derived from formula 2.52 m2 Gisele Wetodd [facility], [facility].; [place] [employer] [facility]. 09-25-2011 13:41-0400 Body temperature 98.5 [degF] Gisele Lindertodd [facility], [facility].; [employer]. 09-25-2011 13:41-0400 Body weight 149.35 kg Gisele Wetodd FARM FIELD MANAGER [facility], [facility].; [place] [employer] [facility]. 09-25-2011 13:41-0400 Inhaled oxygen concentration 20 % Gisele Wetodd [facility], [facility].; [place] [employer] [facility] [email or web address]. 09-25-2011 13:41-0400 SaO2% (BldA) [Mass fraction] 98 % Gisele Wetodd [facility], [facility].; [employer] [facility]. 09-01-2011 11:21-0400 Body height 172.09 cm Nasrin Turner LPN [facility], [facility].; [place] [employer]. 09-01-2011 11:21-0400 Body mass index (BMI) [Ratio] 51.47 kg/m2 Nasrin Turner LPN [facility], [facility].; [place] [employer]. 09-01-2011 11:21-0400 Body surface area Derived from formula 2.54 m2 Nasrin Turner FARM FIELD MANAGER [facility], [facility].; [employer]. 09-01-2011 11:21-0400 Body weight 152.41 kg Nasrin Turner LPN [facility], [facility].; [place] [employer]. 09-01-2011 11:21-0400 Diastolic blood pressure 70 mm[Hg] Nasrin Turner LPN [employer] [facility], Inc.; [employer] 09-01-2011 11:21-0400 Heart rate 69 /min Nasrin Turner LPN [employer] [facility], Inc.; [employer] 09-01-2011 11:21-0400 Systolic blood pressure 118 mm[Hg] Nasrin Turner LPN [employer] [facility], Inc.; [employer], [employer]. 06-11-2010 17:02-0400 Body height 171.45 cm Jing C Jerome [facility], Inc.; [employer] 06-11-2010 17:02-0400 Body mass index (BMI) [Ratio] 51.38 kg/m2 Jing C Jerome [facility] CenterRed[facility], Inc.; [employer], [employer]. 06-11-2010 17:02-0400 Body surface area Derived from formula 2.53 m2 Jing C Kenton FARM FIELD MANAGER [employer], [employer].; [employer], [employer]. 06-11-2010 17:02-0400 Body weight 151.05 kg Jing C Jerome [facility] CenterYooLotto, Inc.; [employer], [employer]. 06-11-2010 17:02-0400 Diastolic blood pressure 77 mm[Hg] Jing C Kenton FARM FIELD MANAGER [employer].; [employer], [employer]. 06-11-2010 17:02-0400 Heart rate 75 /min Jing C Jerome FARM FIELD MANAGER [employer], [employer].; [employer], [employer]. 06-11-2010 17:02-0400 Systolic blood pressure 126 mm[Hg] Jing C Kenton FARM FIELD MANAGER [employer], [employer].; [employer]. 05-07-2010 11:11-0500 Body weight 154.22 kg Lauren Parkinson LPN [employer], [employer].; [employer]. 05-07-2010 11:11-0500 Diastolic blood pressure 71 mm[Hg] Lauren Parkinson LPN [employer], [employer].; [employer] 05-07-2010 11:11-0500 Heart rate 79 /min Lauren Parkinson LPN [employer].; [employer]. 05-07-2010 11:11-0500 Systolic blood pressure 120 mm[Hg] Lauren Parkinson LPN [employer].; [employer], [employer]. 04-04-2010 10:38-0500 Body temperature 98.5 [degF] Yanique Latham RN [employer].; [employer] 04-04-2010 10:38-0500 Body weight 153.95 kg Yanique Latham RN [employer].; [employer], [employer]. 04-04-2010 10:38-0500 Diastolic blood pressure 83 mm[Hg] Yanique Latham RN [employer].; [employer], [employer]. 04-04-2010 10:38-0500 Heart rate 80 /min Yanique Latham RN [employer].; [employer]. 04-04-2010 10:38-0500 Systolic blood pressure 133 mm[Hg] Yanique Latham RN [employer]. 02-05-2010 11:16-0500 Body weight 155.58 kg Renee Godinez LPN [employer] 02-05-2010 11:16-0500 Diastolic blood pressure 84 mm[Hg] Renee Godinez LPN [employer] 02-05-2010 11:16-0500 Heart rate 65 /min Renee Godinez LPN [employer] 02-05-2010 11:16-0500 Systolic blood pressure 120 mm[Hg] Renee Godinez LPN [employer]. Encounters Encounter Date Encounter Type Care Provider Facility Start: 04-06-2023 End: 04-06-2023 Office outpatient visit 25 minutes Tamara Hood PA-C Work Phone: [employer]. Start: 04-06-2023 Tamara Last Work Phone: [email or web address] Start: 02-26-2023 End: 02-27-2023 ambulatory ELLIOTT~[id number] [facility] Facility:[facility] Start: 02-20-2023 End: 02-20-2023 Office outpatient visit 15 minutes Tamara Hood PA-C Work Phone: [facility] Start: 02-17-2023 End: 02-17-2023 Tamara Hood PA-C Work Phone: [facility] Start: 01-23-2023 End: 01-23-2023 ambulatory RODRI DODSON [facility] Start: 01-23-2023 End: 01-23-2023 Office outpatient visit 15 minutes Rodri Dodson DO Work Phone: [facility] [place] Procedures Date Procedure Procedure Detail Performing Clinician Start: 02-26-2023 End: 02-26-2023 Lab findings surveillance Delphine perkins RN Start: 02-26-2023 End: 02-26-2023 Delphine Pack RN Start: 01-23-2023 TANGENTIAL BIOPSY Jaden Dodson DO Work Phone: Start: 01-23-2023 CRYOTHERAPY SKIN LESION Rodri Dodson DO Work Phone: Start: 10-06-2022 End: 10-06-2022 Adv care pln/ no alt dcsn mkr docd or refusal Tamara Hood PA-C Work Phone: Start: 10-06-2022 End: 10-06-2022 Depression screening Tamara Hood PA-C Work Phone: Start: 10-06-2022 End: 10-06-2022 Falls risk assessment documented Tamara Hood PA-C Work Phone: Start: 10-06-2022 End: 10-06-2022 PPPS, subseq visit Tamara Hood PA-C Work Phone: Start: 10-06-2022 End: 10-06-2022 Pt falls assess docd w/o fall/injury past year Tamara Odin Hood PA-C Work Phone: Start: 10-06-2022 End: 10-06-2022 Scr dep neg, no plan reqd Tamara Odin Hood PA-C Work Phone: Start: 08-25-2022 End: 08-25-2022 Delphine Pack RN Start: 08-05-2022 End: 08-05-2022 Delphine Pack RN Start: 07-29-2022 CRYOTHERAPY SKIN LESION Rodri Dodson DO Work Phone: Start: 07-29-2022 End: 07-29-2022 TANGENTIAL BIOPSY Rodri Sanchez O Work Phone: Start: 05-01-2022 End: 05-01-2022 Delphine Pack RN Start: 03-23-2022 End: 03-23-2022 Excision of skin carcinoma Delphine Redd RN Start: 03-20-2022 End: 03-20-2022 Chest x-ray Tamara Hood PA-C Work Phone: Start: 10-01-2021 End: 10-01-2021 Adv care pln/ no alt dcsn mkr docd or refusal Tamara Odin Hood PA-C Work Phone: Start: 10-01-2021 End: 10-01-2021 Depression screening Tamara Hood PA-C Work Phone: Start: 10-01-2021 End: 10-01-2021 Falls risk assessment documented Tamara Hood PA-C Work Phone: Start: 10-01-2021 End: 10-01-2021 PPPS, subseq visit Tamara Hood PA-C Work Phone: Start: 10-01-2021 End: 10-01-2021 Pt falls assess docd w/o fall/injury past year Tamara CASPER-C Work Phone: Start: 10-01-2021 End: 10-01-2021 Scr dep neg, no plan reqd Tamara Hood PA-C Work Phone: Start: 09-25-2021 End: 09-25-2021 Prostate specific antigen measurement Delphine Pack RN Start: 04-09-2021 CRYOTHERAPY SKIN LESION Rodriradha Dodson DO Work Phone: Start: 03-18-2021 TANGENTIAL BIOPSY Jaden Dodson DO Work Phone: Start: 12-27-2020 End: 12-28-2020 Radiologic exam knee complete 4/more views Tamara CASPER-C Work Phone: Start: 09-27-2020 End: 09-27-2020 Depression screening Tamara CASPER-C Work Phone: Start: 09-27-2020 End: 09-27-2020 Scr dep neg, no plan reqd Tamara Hood PA-C Work Phone: Start: 03-19-2020 Glucose [Mass/volume ] in Blood Milesangelarohit Juan Chavezque Work Phone: Start: 03-19-2020 Comprehensive metabo lic 2000 panel - Serum or Plasma Shana Brown Work Phone: Start: 03-19-2020 Ferritin [Mass/volum e] in Serum or Plasma Shana Brown Work Phone: Start: 03-19-2020 Lactate dehydrogenas e [Enzymatic activity/volume] in Serum or Plasma by Lactate to pyruvate reaction Shana Brown Work Phone: Start: 03-19-2020 Glucose [Mass/volume ] in Blood [facility] Work Phone: Start: 03-18-2020 CT of chest without contrast Shana Brown Work Phone: Start: 03-18-2020 Activated partial thromboplastin time ratio Shana Brown Work Phone: Start: 03-18-2020 aPTT in Blood by Coa gulation assay Shana Brown Work Phone: Start: 03-18-2020 C reactive protein [Mass/volume] in Serum or Plasma Shana Brown Work Phone: Start: 03-18-2020 Creatine kinase [Enz ymatic activity/volume] in Serum or Plasma Shana Brown Work Phone: Start: 03-18-2020 D-dimer assay, quantitative Enzo Murphy Work Phone: Start: 03-18-2020 Ferritin [Mass/volum e] in Serum or Plasma Enzo Murphy Work Phone: Start: 03-18-2020 Fibrinogen [Mass/vol ume] in Platelet poor plasma by Coagulation assay Shana Brown Work Phone: Start: 03-18-2020 INR in Platelet poor plasma by Coagulation assay Shana Brown Work Phone: Start: 03-18-2020 Lactate dehydrogenas e [Enzymatic activity/volume] in Serum or Plasma by Lactate to pyruvate reaction Enzo Murphy Work Phone: Start: 03-18-2020 Glucose [Mass/volume ] in Blood [facility] Work Phone: Start: 03-18-2020 Electrocardiogram Provi jean claude Not In System Start: 03-18-2020 Radiologic exam ches t single view Jennifer Chadwick Work Phone: Start: 03-18-2020 Gases blood ph direc t jean xcpt pulse oximitry Beverly Wharton Work Phone: Start: 03-18-2020 12 lead ECG Beverly Wharton Work Phone: Start: 03-18-2020 OBTAIN VENOUS BLOOD GASES AND PERFORM Jennifer Chadwick Work Phone: Start: 03-18-2020 COVID-19/INFLUENZA A ,B MOLECULAR Jennifer Chadwick Work Phone: Start: 03-18-2020 Basic metabolic 2000 panel - Serum or Plasma Yocora Tate Wharton Work Phone: Start: 03-18-2020 C reactive protein [Mass/volume] in Serum or Plasma Enzo Murphy Work Phone: Start: 03-18-2020 Complete blood count with white cell differential, automated Yojan Bebeto Wharton Work Phone: Start: 03-18-2020 Complete blood count with white cell differential, manual Yojan Bebeto Wharton Work Phone: Start: 03-18-2020 SANCHEZ TOP Yojan Rame sh Wharton Work Phone: Start: 03-18-2020 Hepatic function 200 0 panel - Serum or Plasma Shana Brown Work Phone: Start: 03-18-2020 LAVENDER TOP Yojan Rame sh Wharton Work Phone: Start: 03-18-2020 LIGHT BLUE TOP Yojan Ra mesh Wharton Work Phone: Start: 03-18-2020 MINT GREEN TOP Yojan Ra mesh Wharton Work Phone: Start: 03-18-2020 RAINBOW DRAW Yojan Rame sh Wharton Work Phone: Start: 09-27-2019 End: 09-27-2019 Depression screening Gwendolyn Ricketts MD Work Phone: Start: 09-27-2019 End: 09-27-2019 Falls risk assessment documented Gwendolyn Ricketts MD Work Phone: Start: 09-27-2019 End: 09-27-2019 PPPS, subseq visit Gwendolyn Ricketts MD Work Phone: Start: 09-27-2019 End: 09-27-2019 Pt falls assess docd w/o fall/injury past year Gwendolyn Ricketts MD Work Phone: Start: 09-27-2019 End: 09-27-2019 Scr dep neg, no plan reqd Gwendolyn Ricketts MD Work Phone: Start: 08-10-2018 End: 08-10-2018 Depression screening Gwendolyn Ricketts MD Work Phone: Start: 08-10-2018 End: 08-10-2018 Scr dep neg, no plan reqd Gwendolyn Ricketts MD Work Phone: Start: 09-03-2017 End: 09-03-2017 Screening colonoscopy Delphine marie RN Start: 07-31-2017 End: 07-31-2017 Body mass index documented Gwendolyn Ricketts MD Work Phone: Start: 07-31-2017 End: 07-31-2017 Foot examination performed Gwendolyn Ricketts MD Work Phone: Start: 07-31-2017 End: 07-31-2017 PPPS, initial visit Gwendolyn Ricketts MD Work Phone: Start: 07-31-2017 End: 07-31-2017 Pt falls assess docd w/o fall/injury past year Gwendolyn Ricketts MD Work Phone: Start: 07-31-2017 End: 07-31-2017 Scr dep neg, no plan reqd Gwendolyn Ricketts MD Work Phone: Start: 07-31-2017 End: 07-31-2017 Falls risk assessment documented Gwendolyn Ricketts MD Work Phone: Start: 07-31-2017 End: 07-31-2017 Depression screen annual Gwendolyn Sanchez Work Phone: Start: 06-09-2017 End: 06-09-2017 Examination of retina Delphine marie RN Start: 03-28-2014 End: 03-28-2014 Ophthalmic examination and evaluation Lyric Cruz MA Start: 06-08-2013 End: 06-08-2013 Removal skn tags 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 tags any area upw/15 Gwendolyn Ricketts MD Work Phone: Start: 03-23-2013 End: 03-23-2013 Extraction of cataract Delphine Villa in RN Start: 08-02-2012 End: 05-21-2013 Doppler echocard pulse wave w/spectral display Gwendolyn Ricketts MD Work Phone: Start: 06-21-2009 End: 06-21-2009 Decompression of median nerve Delphine Pack RN Start: 03-23-1991 End: 03-23-1991 Tonsillectomy Delphine Pack RN Cataract extraction and insertion of intraocular lens Delphine Pack RN H/O: artificial joint Cassid y Anthony MIRELES H/O: artificial joint Rebecc carlotta Hood PA-C Work Phone: H/O: artificial joint Mary Pack RN Plan of Treatment Date Care Activity Detail Author Start: 11-12-2026 DTaP/Tdap/Td Vaccines (3 - Td or Tdap) DTaP/Tdap/Td Vaccines (3 - Td or Tdap) [facility] Start: 11-12-2026 Tetanus vaccination Tetanus: Every 10yrs [facility] Start: 02-05-2024 End: 02-05-2024 Patient encounter procedure 02/05/2024 11:15 [place] [address] Rodri Dodson DO [address] [address] [facility] Start: 10-08-2023 [facility] Start: 10-01-2023 [facility] Start: 08-19-2023 End: 08-19-2023 Patient encounter procedure 08/19/2023 11:00 [place] [address] Rodri Dodson DO [address] [address] [facility] Start: 01-23-2023 End: 01-23-2023 Patient encounter procedure 01/23/2023 10:15 AM EDT Office Visit [facility] [place] [place] [address] Rodri Dodson, [facility] [address] [place] [address] [facility] Start: 11-21-2022 COVID-19 Vaccine ( season) COVID-19 Vaccine () [facility] Start: 11-21-2022 Influenza vaccination Influenza Vaccine (#1) [facility] Start: 01-17-2022 End: 01-17-2022 Patient encounter procedure 01/17/2022 Office Visit Dermatology Rodri Dodson [facility] [address] [place] [address] [facility] Start: 07-23-2021 End: 07-23-2021 Patient encounter procedure 07/23/2021 Office Visit Dermatology Rodri Dodson [facility] [address] [place] [address] [facility] Start: 03-16-2020 Administration of herpes zoster vaccine Zoster Vaccines (3 of 3) [facility] Start: 11-22-2019 Influenza vaccination given Sequential Influenza Vaccine (#1) [facility] Start: 2016 Pneumococcal vaccination Pneumococcal Vaccine Age 65+ (1 of 2 - PCV13) [facility] Start: 2011 Respiratory Syncytial Virus (RSV) Immunization Age 60+ Years (1 - 1-dose 60+ series) Respiratory Syncytial Virus (RSV) Immunization Age 60+ Years (1 - 1-dose 60+ series) [facility] Start: 2001 Administration of herpes zoster vaccine Zoster Vaccines (1 of 2) [facility] Start: 2001 Screening for malignant neoplasm of colon [facility] Start: 1970 Urine screening for protein Diabetes: Urine Protein Screening [facility] Start: 1969 Diabetes mellitus screening Diabetes Screening [facility] Start: 1969 Hepatitis C antibody, confirmatory test Hepatitis C Screening [facility] Start: 1967 COVID-19 Vaccine (1 of 2) COVID-19 Vaccine (1 of 2) [facility] Start: 1963 Adolescent depression screening assessment Depression Screening (PHQ9) [facility] Start: 1963 Annual PHQ-2/9 Screening Annual PHQ-2/9 Screening [facility] Start: 1961 Diabetic foot examination Diabetes: Foot Exam [facility] Start: 1961 Ophthalmic examination and evaluation Diabetes: Retinopathy Screening [facility] Start: 1961 Preventive dental service Diabetes: Dental Exam [facility] Start: 1954 History and physical examination, annual for health maintenance Wellness Visit [facility] Start: 1951 Fall risk assessment Falls Risk Assessment [facility] Start: 1951 Hemoglobin A1c measurement Diabetes: Hemoglobin A1C [facility] Start: 1951 Hepatitis C screening Hepatitis C Screening [facility] Start: 1951 Lipid panel Lipid Panel [facility] Start: 1951 Medicare Annual Wellness (AWV) Medicare Annual Wellness (AWV) [facility] Start: 1951 Prostate specific antigen measurement PSA Level [facility] Start: 1951 Screening for malignant neoplasm of colon [facility] Start: 1951 Tetanus vaccination Tetanus: Every 10yrs [facility] Start: 1951 Thyroid stimulating hormone measurement TSH Level [facility] Internal Dermatopath ology exam Internal Dermatopathology exam Pathology and Cytology Timed Neoplasm of uncertain behavior of skin Release Upon Ordering for 1 Occurrences starting 03/18/2021 [facility] Work Phone: Immunizations Immunization Date Immunization Notes Care Provider Fa [facility] 01-24-2022 influenza virus vacc ine, unspecified formulation Rodri Dodson DO Work Phone: [facility] 06-13-2020 Tamara Flores Work Phone: [facility] 05-23-2020 Tamara Hood PA -C Work Phone: [facility] 12-22-2019 influenza, high dose seasonal, preservative-free Tamara Hood PA-C Work Phone: [facility] 12-22-2019 zoster vaccine recombinant Tamara Hood PA-C Work Phone: [facility] 08-10-2018 pneumococcal polysaccharide vaccine, 23 valent Tamara Hood PA-C Work Phone: [facility] 07-31-2017 pneumococcal conjuga te vaccine, 13 valent Tamara Hood PA-C Work Phone: [facility].; [facility] 09-20-2016 tetanus toxoid, redu jean diphtheria toxoid, and acellular pertussis vaccine, adsorbed Tamara Hood PA-C Work Phone: [facility].; [facility] 07-10-2014 zoster vaccine, live Tamara Hood PA-C Work Phone: [facility] 08-02-2012 pneumococcal Conjuga te, unspecified formulation Tamara Hood PA-C Work Phone: [facility] 08-02-2012 pneumococcal polysaccharide vaccine, 23 valent Tamara Hood PA-C Work Phone: [email or web address] Payers Date Payer Category Payer Medicare MEDICARE MEDICAR E PART A AND B [id number] 2020-Present [employer] [facility] [place] [address] [place] [address] Medicare [id number] 2020 Unknown AARP AARP [id number] 2020-Present [address] [place] [address] [id number] 2020 Unknown [id number] 2018 Unknown M[employer] MED [employer]PER[employer] PPO [id number] 2018-Present [id number] 2018 Unknown [id number] 2016 Medicare [id number] 1959 Medicare [id number] 1959 Unknown [id number] 1951 Unknown [id number] 0 1951 Unknown [id number] [id number] 2 1951 Unknown [id number] [id number] 1 1951 Unknown [id number] [id number] 1 1951 Unknown [id number] [id number] 1 1951 Unknown [id number] [id number] 1 1951 Unknown [id number] [id number] 1 1951 Unknown [id number] [id number] 1 1951 Unknown [id number] [id number] 1 1951 Unknown [id number] [id number] 7 1951 Unknown [id number] [id number] 9 1951 Unknown [id number] [id number] 9 1951 Unknown [id number] [id number] 9 1951 Unknown [id number] 9 Social History Date Type Detail Facility Start: 03-18-2020 End: 01-14-2021 Tobacco smoking status INIS Never smoker [facility] Start: 03-18-2020 End: 01-14-2021 Tobacco use and exposure Never used [facility] Start: 03-18-2020 Alcohol intake Lifetime non-d erick (finding) [facility] Start: 03-18-2020 History SDOH Alcohol Frequency 1 [facility] Start: 1950 Sex Assigned At Not on file [facility] Exposure to SARS-CoV -2 (event) Yes [facility] Start: 07-19-2022 End: 07-29-2022 Exposure to SARS-CoV-2 (event) Not sure [facility] Start: 07-29-2022 End: 01-23-2023 History of Social function [employer] Start: 07-29-2022 End: 01-23-2023 Tobacco use panel [facility] None. [employer] Retired. [employer] Never smoker. [employer] Medical Equipment Procedure Code Equipment Code Equipment Origin al Text Equipment Identifier Dates [id number] Start: 05-06-2021 End: 04-06-2023 [id number] Start: 05-06-2021 End: 04-06-2023 Clinical Notes 03-18-2021 to 01-23-2023 Rodri Newby Annie, DO - 01/23/2023 10:15 AM EDTPatient InstructionsRodri Dodson, DO - 07/29/2022 9:30 AM EDTPatient StephenRodri Dodson, DO - 04/09/2021 2:30 PM EST Note Date & Type Note Facility 01-23-2023 History of Presen t illness Narrative Images from the original note were not included. [facility] Dermatology- Clinic Note- Annie Past Medical History: He has a past medical history of Diabetes mellitus, Hypertension, Obese, and Squamous cell skin cancer. Relevant Family Hx: Family History Problem Relation Name Age of Onset Skin cancer Mother Melanoma Mother Allergies: Patient has no known allergies. CC: Chief Complaint Patient presents with Skin Check Cryo- l forearm, previous ak spots still there, l ear, r face I, Sara Morales MA, has acted as a geochemist during this exam. I attest that I performed the duties of a scribe and geochemist for this encounter in the presence of Rodri Dodson, 01/23/2023 at 10:09 AM. I reviewed the information recorded by the scribe for accuracy and I attest that I performed all work during this encounter and that the scribe only recorded my findings. Rodri Newby Annie, DO 01/23/2023 at 10:09 AM. Here today for an upper body check has a lot of spots over the upper body. ROS: no problems healing PHYSICAL EXAMINATION: A&O X 4, pleasant, well groomed Upper body check today no suspcious lesions noted (except those mentioned above) on the face, scalp, ears, neck, chest, abd, arms, hands, nails, back, ocular, or oral mucosa 1. Hx of squamous cell carcinoma of skin 2. 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 Hickey angioma Trunk red 2 to 3 mm vascular papules Discussed diagnosis, no treatement required Reassured benign 4. Seborrheic keratosis Back Brown-yellow waxy stuck on plaques Discussed diagnosis, no treatment required 5. Neoplasm of uncertain behavior of skin Right Upper Cutaneous Lip 5mm shiny papule Tangential biopsy Type of biopsy: tangential Informed consent: discussed and consent obtained Anesthesia: the lesion was anesthetized in a standard fashion Local anesthetic: normal saline. Instrument used: flexible razor blade Hemostasis achieved with: aluminum chloride Outcome: patient tolerated procedure well Post-procedure details: sterile dressing applied and wound care instructions given Dressing type: petrolatum Specimen A - Internal Dermatopathology exam Bcc vs folliculitis Handout on broad spectrum spf given and discussed hx of scc- l inf deltoid, l dorsal hand, l forehead hx of sccis- l dorsal hand, l lat forearm, r chest, r inf jewish, l lat forearm No sign of persistence Fu in 6 mo for next fse, discussed increased risk for developing additional skin cancers elsewhere is about 50%, there is also a risk of recurrence of previously treated lesions, perform self mo sk checks if any new, changing, nonhealing lesions develop fu immediately. handout on broad spectrum sunscreen was given and discussed recc 30 reapply every 2 hours if out for extendfed periods of time, pt demonstrated comprehension documented in this encounter [facility] 01-23-2023 Instructions Sara Morales MA - 01/23/2023 10:15 AM EDT Daily Photoprotection: Wear a broad-rimmed hat, clothing with ultraviolet protection factor (UPF, e.g. [place], Coolibar, Solumbra), UV blocking sunglasses; seek out shaded areas Use broad spectrum (UVA/UVB) sunscreen with at least SPF 20 every day to areas that may be exposed to sun. Consider SPF 50 or higher if planning extended or extensive sun exposure (e.g. going to pool, putnam) Apply 1 ounce (2 tablespoons) of sunscreen to your entire body 30 minutes before going outside Reapply every two hours or immediately after swimming or significantly sweating Some of my favorite sunscreens = Neutrogena, Cerave, Cetaphil, [place] Baby, Vanicream Zinc/Titanium based sunscreen if sensitive skin (ie Blue Lizard, Vanicream) If you perform the above measures you should take a Vitamin D supplement (400 IU daily) Avoid high-risk behaviors: Limit peak ultraviolet radiation occurs between hours of 10AM-4PM Avoid intentional tanning, tanning-beds, excessive sun exposure Cryodestruction Instructions You have just had cryotherapy performed by your physician. These treated areas may blister over the next 8 to 12 hours. Please wash these areas with soapy water and apply Vaseline/petrolatum jelly once to twice daily with Q-Tip for one week. The treated areas may result in a white/pink spot or scar. Swelling and some redness may occur. If there is any concern about possible problems such as infection (redness, warmth, abnormal pain, or pus) please call our office at the number listed above. If blisters are large and look as if they may burst open--It is OK to use a sterile needle to poke a superficial hole and drain blisters--NEVER REMOVE THE TOP OF THE BLISTER. Wash immediately and cover with Vaseline/petrolatum jelly ointment and bandage. Biopsy Care Instructions Why is the doctor performing a biopsy? Your doctor has removed a piece of skin to either help diagnose what is causing your skin rash or to sample all or part of an area of skin that looks abnormal. The specimen will be sent to the pathology laboratory to be processed and studied under the microscope. How should I care for the wound? We recommend that you keep the biopsy site clean, covered, and dry for one day. On the second day you may remove the bandage, wash the site gently with mild soap and water, pat dry, apply polysporin ointment or Vaseline, and re-bandage the area. Continue this care until the biopsy site is healed. If stiches are present please return in ___ days for removal. If there is concern for infection (spreading redness, pain, swelling, drainage, fever) please call our office at the number listed above. If any bleeding occurs, hold direct firm pressure for at least 10 minutes, if bleeding continues please call our office at the number listed. Results Notification: Once we receive the results of your skin biopsy you will be notified during your follow up appointment. In some cases you will be notified by phone call or letter. In the case you do not receive a results notification from us within 1 month please contact the office for further information Please notify us if you have any concerns: Thursday to Thursday during business hours- [phone] Answering Service after hours- documented in this encounter [facility] 07-29-2022 History of Presen t illness Narrative Images from the original note were not included. [facility] Dermatology- Clinic Note- Annie Past Medical History: He has a past medical history of Diabetes mellitus, Hypertension, Obese, and Squamous cell skin cancer. Current Outpatient Medications Medication Sig Dispense Refill aspirin 81 mg EC tablet ASPIRIN ADULT LOW DOSE 81 MG TBEC atorvastatin (Lipitor) 80 mg tablet b complex 0.4 mg tablet B COMPLEX TABS cephalexin (Keflex) 500 mg capsule Take 4 capsules one hour prior to surgery. 4 capsule 1 cholecalciferol, vitamin D3, (D3-2000 ORAL) CVS VITAMIN D3 250 MCG (23893 UT) CAPS empagliflozin (Jardiance) 25 mg JARDIANCE 25 MG TABS ferrous sulfate 325 mg (65 mg iron) tablet FERROUS SULFATE 325 (65 Fe) MG TABS folic acid (Folvite) 1 mg tablet FOLIC ACID 1 MG TABS furosemide (Lasix) 20 mg tablet LASIX 20 MG TABS insulin glargine-lixisenatide (Soliqua 100/33) 100 unit-33 mcg/mL insulin pen SOLIQUA 100-33 UNT-MCG/ML SOPN insulin NPH, Isophane, (HumuLIN N NPH U-100 Insulin) 100 unit/mL injection 34 units daily levothyroxine (Synthroid, Levoxyl) 100 mcg tablet LEVOTHYROXINE SODIUM 100 MCG TABS lisinopriL 5 mg tablet LISINOPRIL 5 MG TABS metFORMIN, MOD, (Glumetza) 1,000 mg 24 hr tablet METFORMIN HCL ER (MOD) 1000 MG [id number] metoprolol tartrate (Lopressor) 25 mg tablet METOPROLOL TARTRATE 25 MG TABS multivitamin capsule DAILY MULTIPLE VITAMINS TABS omega-3 1,000 mg capsule FISH OIL CONCENTRATE 1000 MG CAPS pravastatin (Pravachol) 40 mg tablet PRAVASTATIN SODIUM 40 MG TABS No current facility-administered medications for this visit. Relevant Family Hx: Family History Problem Relation Name Age of Onset Skin cancer Mother Melanoma Mother Allergies: Patient has no known allergies. CC: Chief Complaint Patient presents with Skin Check Upper body only- Spot L forearm, several spots on face I, Suyapa Cheatham RN, has acted as a geochemist during this exam. I attest that I performed the duties of a scribe and geochemist for this encounter in the presence of Rodri Dodson DO 07/29/2022 at 9:19 AM. I reviewed the information recorded by the scribe for accuracy and I attest that I performed all work during this encounter and that the scribe only recorded my findings. Rodri Dodson, 07/29/2022 at 9:19 AM. Here today for an upper body check per pt request has a lot of spots over the body throughout. Denies problems with previously treated sites. Ros: denies weight loss, fatigue, lymphadenopathy PHYSICAL EXAMINATION: A&O X 4 pleasant, well groomed No cervical, supraclavicular, or axillary lymphadenopathy noted Upper body today no suspicious lesions noted (except those mentioned above) on face scalp ears neck chest abd arms hands nails back ocular or oral mucosa IMPRESSION/PLAN 1. Hx of squamous cell carcinoma of skin 2. Neoplasm of uncertain behavior of skin (3) L lat forearm 4mm erythematous Hyperkeratotic papule Tangential biopsy Type of biopsy: tangential Informed consent: discussed and consent obtained Anesthesia: the lesion was anesthetized in a standard fashion Local anesthetic: normal saline. Instrument used: flexible razor blade Hemostasis achieved with: aluminum chloride and ferric subsulfate Outcome: patient tolerated procedure well Post-procedure details: sterile dressing applied and wound care instructions given Dressing type: petrolatum Specimen A - Internal Dermatopathology exam AK vs SCC LMH Right [place] 1.5 cm erythematous scaling plaque States it has been frozen multiple times and not going away Tangential biopsy Type of biopsy: tangential Informed consent: discussed and consent obtained Anesthesia: the lesion was anesthetized in a standard fashion Local anesthetic: normal saline. Instrument used: flexible razor blade Hemostasis achieved with: aluminum chloride Outcome: patient tolerated procedure well Post-procedure details: sterile dressing applied and wound care instructions given Dressing type: petrolatum Specimen B - Internal Dermatopathology exam SCC vs AK LMH Left Forehead 6mm erythematous Hyperkeratotic papule States it has been frozen and not going away, forms a blood blister Tangential biopsy Type of biopsy: tangential Informed consent: discussed and consent obtained Anesthesia: the lesion was anesthetized in a standard fashion Local anesthetic: normal saline. Instrument used: flexible razor blade Hemostasis achieved with: aluminum chloride Outcome: patient tolerated procedure well Post-procedure details: sterile dressing applied and wound care instructions given Dressing type: petrolatum Specimen C - Internal Dermatopathology exam AK vs SCC LMH 3. Seborrheic keratosis Trunk, face Brown-yellow waxy stuck on plaques Discussed diagnosis, no treatment required 4. Keratosis, actinic (26) face, arms Cryotherapy, skin lesion - face, arms Destruction method: cryotherapy Lesion destroyed using liquid nitrogen: Yes Post-procedure details: wound care instructions given Additional details: Red gritty papules 5. Hickey angioma Trunk red 2 to 3 mm vascular papules Discussed diagnosis, no treatement required Reassured benign hx of scc- l inf deltoid, l dorsal hand hx of sccis- l dorsal hand, l lat forearm, r chest, r inf jewish No sign of persistence Fu in 6 mo for next fse, discussed increased risk for developing additional skin cancers elsewhere is about 50%, there is also a risk of recurrence of previously treated lesions, perform self mo sk checks if any new, changing, nonhealing lesions develop fu immediately. handout on broad spectrum sunscreen was given and discussed recc 30 reapply every 2 hours if out for extendfed periods of time, pt demonstrated comprehension documented in this encounter [facility] 07-29-2022 Instructions Suyapa Cheatham RN - 07/29/2022 9:30 AM EDT Daily Photoprotection: Wear a broad-rimmed hat, clothing with ultraviolet protection factor (UPF, e.g. [place], Coolibar, Solumbra), UV blocking sunglasses; seek out shaded areas Use broad spectrum (UVA/UVB) sunscreen with at least SPF 20 every day to areas that may be exposed to sun. Consider SPF 50 or higher if planning extended or extensive sun exposure (e.g. going to pool, putnam) Apply 1 ounce (2 tablespoons) of sunscreen to your entire body 30 minutes before going outside Reapply every two hours or immediately after swimming or significantly sweating Some of my favorite sunscreens = Neutrogena, Cerave, Cetaphil, [place] Baby, Vanicream Zinc/Titanium based sunscreen if sensitive skin (ie Blue Lizard, Vanicream) If you perform the above measures you should take a Vitamin D supplement (400 IU daily) Avoid high-risk behaviors: Limit peak ultraviolet radiation occurs between hours of 10AM-4PM Avoid intentional tanning, tanning-beds, excessive sun exposure Cryodestruction Instructions You have just had cryotherapy performed by your physician. These treated areas may blister over the next 8 to 12 hours. Please wash these areas with soapy water and apply Vaseline/petrolatum jelly once to twice daily with Q-Tip for one week. The treated areas may result in a white/pink spot or scar. Swelling and some redness may occur. If there is any concern about possible problems such as infection (redness, warmth, abnormal pain, or pus) please call our office at the number listed above. If blisters are large and look as if they may burst open--It is OK to use a sterile needle to poke a superficial hole and drain blisters--NEVER REMOVE THE TOP OF THE BLISTER. Wash immediately and cover with Vaseline/petrolatum jelly ointment and bandage. Biopsy Care Instructions Why is the doctor performing a biopsy? Your doctor has removed a piece of skin to either help diagnose what is causing your skin rash or to sample all or part of an area of skin that looks abnormal. The specimen will be sent to the pathology laboratory to be processed and studied under the microscope. How should I care for the wound? We recommend that you keep the biopsy site clean, covered, and dry for one day. On the second day you may remove the bandage, wash the site gently with mild soap and water, pat dry, apply polysporin ointment or Vaseline, and re-bandage the area. Continue this care until the biopsy site is healed. If stiches are present please return in ___ days for removal. If there is concern for infection (spreading redness, pain, swelling, drainage, fever) please call our office at the number listed above. If any bleeding occurs, hold direct firm pressure for at least 10 minutes, if bleeding continues please call our office at the number listed. Results Notification: Once we receive the results of your skin biopsy you will be notified during your follow up appointment. In some cases you will be notified by phone call or letter. In the case you do not receive a results notification from us within 1 month please contact the office for further information Please notify us if you have any concerns: Thursday to Thursday during business hours- [phone] documented in this encounter [facility] 04-09-2021 History of Presen t illness Narrative [facility] Dermatology- Clinic Note- Annie Past Medical History: He has a past medical history of Diabetes mellitus, Hypertension, Obese, and Squamous cell skin cancer. Current Outpatient Medications Medication Sig Dispense Refill aspirin 81 mg EC tablet ASPIRIN ADULT LOW DOSE 81 MG TBEC atorvastatin (Lipitor) 80 mg tablet b complex (B Complex 1, with folic acid,) 0.4 mg tablet B COMPLEX TABS benzonatate (Tessalon Perles) 100 mg capsule [id number] 2-30-10 mg/5 mL syrup cephalexin (Keflex) 500 mg capsule Take 4 capsules one hour prior to surgery. 4 capsule 1 cholecalciferol, vitamin D3, (D3-2000 ORAL) CVS VITAMIN D3 250 MCG (63731 UT) CAPS empagliflozin (Jardiance) 25 mg JARDIANCE 25 MG TABS ferrous sulfate 325 mg (65 mg iron) tablet FERROUS SULFATE 325 (65 Fe) MG TABS folic acid (Folvite) 1 mg tablet FOLIC ACID 1 MG TABS furosemide (Lasix) 20 mg tablet LASIX 20 MG TABS HumaLOG KwikPen Insulin 200 unit/mL (3 mL) insulin pen injection insulin glargine-lixisenatide (Soliqua 100/33) 100 unit-33 mcg/mL insulin pen SOLIQUA 100-33 UNT-MCG/ML SOPN insulin NPH, Isophane, (HumuLIN N NPH U-100 Insulin) 100 unit/mL injection 34 units daily ipratropium-albuteroL (DuoNeb) 0.5-2.5 mg/3 mL nebulizer solution ketoconazole (NIZOral) 2 % cream KETOCONAZOLE 2 % CREA levothyroxine (Synthroid, Levoxyl) 100 mcg tablet LEVOTHYROXINE SODIUM 100 MCG TABS lisinopriL 5 mg tablet LISINOPRIL 5 MG TABS metFORMIN, MOD, (Glumetza) 1,000 mg 24 hr tablet METFORMIN HCL ER (MOD) 1000 MG [id number] metoprolol tartrate (Lopressor) 25 mg tablet METOPROLOL TARTRATE 25 MG TABS multivitamin capsule DAILY MULTIPLE VITAMINS TABS omega-3 (Fish Oil Concentrate) 1,000 mg capsule FISH OIL CONCENTRATE 1000 MG CAPS pravastatin (Pravachol) 40 mg tablet PRAVASTATIN SODIUM 40 MG TABS Current Facility-Administered Medications Medication Dose Route Frequency Provider Last Rate Last Admin cephalexin (Keflex) capsule 2,000 mg 2,000 mg oral Once Rodri Dodson DO Relevant Family Hx: Family History Problem Relation Name Age of Onset Skin cancer Mother Melanoma Mother Allergies: Patient has no known allergies. CC: Chief Complaint Patient presents with Suture / Staple Removal Follow-up cryo- ak to l ear Here today for cryo of an ak and s/r PHYSICAL EXAMINATION: A&O x 4, pleasant, well groomed IMPRESSION/PLAN PROCEDURE NOTE Assessment/Plan Keratosis, actinic (7) Left Ear, face Cryotherapy, skin lesion - Left Ear, face Destruction method: cryotherapy Lesion destroyed using liquid nitrogen: Yes Post-procedure details: wound care instructions given Additional details: Red gritty papules s/p excision of SCC from l hand Sutures out Path reviewed - margins clear Rtc for fse and recheck of this site in July S/R by LR documented in this encounter [facility] 04-09-2021 Instructions Sara Morales MA - 04/09/2021 2:30 PM EST Cryodestruction Instructions You have just had cryotherapy performed by your physician. These treated areas may blister over the next 8 to 12 hours. Please wash these areas with soapy water and apply Vaseline/petrolatum jelly once to twice daily with Q-Tip for one week. The treated areas may result in a white/pink spot or scar. Swelling and some redness may occur. If there is any concern about possible problems such as infection (redness, warmth, abnormal pain, or pus) please call our office at the number listed above. If blisters are large and look as if they may burst open--It is OK to use a sterile needle to poke a superficial hole and drain blisters--NEVER REMOVE THE TOP OF THE BLISTER. Wash immediately and cover with Vaseline/petrolatum jelly ointment and bandage. documented in this encounter [facility] 03-18-2021 History of Presen t illness Narrative Images from the original note were not included. [facility] Dermatology- Clinic Note- Annie Past Medical History: He has a past medical history of Diabetes mellitus, Hypertension, Obese, and Squamous cell skin cancer. Current Outpatient Medications Medication Sig Dispense Refill aspirin 81 mg EC tablet ASPIRIN ADULT LOW DOSE 81 MG TBEC b complex (B Complex 1, with folic acid,) 0.4 mg tablet B COMPLEX TABS cholecalciferol, vitamin D3, (D3-2000 ORAL) CVS VITAMIN D3 250 MCG (06655 UT) CAPS empagliflozin (Jardiance) 25 mg JARDIANCE 25 MG TABS ferrous sulfate 325 mg (65 mg iron) tablet FERROUS SULFATE 325 (65 Fe) MG TABS folic acid (Folvite) 1 mg tablet FOLIC ACID 1 MG TABS furosemide (Lasix) 20 mg tablet LASIX 20 MG TABS insulin glargine-lixisenatide (Soliqua 100/33) 100 unit-33 mcg/mL insulin pen SOLIQUA 100-33 UNT-MCG/ML SOPN insulin NPH, Isophane, (HumuLIN N NPH U-100 Insulin) 100 unit/mL injection 34 units daily ketoconazole (NIZOral) 2 % cream KETOCONAZOLE 2 % CREA levothyroxine (Synthroid, Levoxyl) 100 mcg tablet LEVOTHYROXINE SODIUM 100 MCG TABS lisinopriL 5 mg tablet LISINOPRIL 5 MG TABS metFORMIN, MOD, (Glumetza) 1,000 mg 24 hr tablet METFORMIN HCL ER (MOD) 1000 MG [id number] metoprolol tartrate (Lopressor) 25 mg tablet METOPROLOL TARTRATE 25 MG TABS multivitamin capsule DAILY MULTIPLE VITAMINS TABS omega-3 (Fish Oil Concentrate) 1,000 mg capsule FISH OIL CONCENTRATE 1000 MG CAPS pravastatin (Pravachol) 40 mg tablet PRAVASTATIN SODIUM 40 MG TABS Current Facility-Administered Medications Medication Dose Route Frequency Provider Last Rate Last Admin cephalexin (Keflex) capsule 2,000 mg 2,000 mg oral Once Rodri Dodson DO Relevant Family Hx: Family History Problem Relation Name Age of Onset Skin cancer Mother Melanoma Mother Allergies: Patient has no known allergies. CC: Chief Complaint Patient presents with Suture / Staple Removal Biopsy Here for s/r and bx PHYSICAL EXAMINATION: A&O x 4, pleasant, well groomed IMPRESSION/PLAN s/p excision of SCC from r chest Sutures out Path reviewed - margins clear Rtc for fse and recheck of this site in July Sutures removed by [place] 1. Neoplasm of uncertain behavior of skin Objective Left Dorsal Hand: 1.3cm Tangential biopsy Type of biopsy: tangential Informed consent: discussed and consent obtained Anesthesia: the lesion was anesthetized in a standard fashion Local anesthetic: normal saline. Instrument used: flexible razor blade Hemostasis achieved with: aluminum chloride Outcome: patient tolerated procedure well Post-procedure details: sterile dressing applied and wound care instructions given Dressing type: petrolatum Specimen A - Internal Dermatopathology exam Differential Diagnosis: scc vs ak Check Margins: No documented in this encounter [facility] 03-18-2021 Instructions Gabrielle Moreira LPN - 03/18/2021 10:30 AM EST Biopsy Care Instructions Why is the doctor performing a biopsy? Your doctor has removed a piece of skin to either help diagnose what is causing your skin rash or to sample all or part of an area of skin that looks abnormal. The specimen will be sent to the pathology laboratory to be processed and studied under the microscope. How should I care for the wound? We recommend that you keep the biopsy site clean, covered, and dry for one day. On the second day you may remove the bandage, wash the site gently with mild soap and water, pat dry, apply polysporin ointment or Vaseline, and re-bandage the area. Continue this care until the biopsy site is healed. If stiches are present please return in ___ days for removal. If there is concern for infection (spreading redness, pain, swelling, drainage, fever) please call our office at the number listed above. If any bleeding occurs, hold direct firm pressure for at least 10 minutes, if bleeding continues please call our office at the number listed. Results Notification: Once we receive the results of your skin biopsy you will be notified during your follow up appointment. In some cases you will be notified by phone call or letter. In the case you do not receive a results notification from us within 1 month please contact the office for further information documented in this encounter [facility] Keratosis, actinic- Primary Actinic keratosis Hx of squamous cell carcinoma of skin [facility] Diagnosis Hx of squamous cell carcinoma of skin- Primary Neoplasm of uncertain behavior of skin Seborrheic keratosis Keratosis, actinic Actinic keratosis Hickey angioma [facility] Diagnosis Hx of squamous cell carcinoma of skin- Primary Keratosis, actinic Actinic keratosis Hickey angioma Seborrheic keratosis Neoplasm of uncertain behavior of skin documented in this encounter [facility] Hospital Course * Bhumi Caal MD - 03/19/2020 9:15 AM EST MEDONE DISCHARGE SUMMARY Ulises Hernandez Account: [id number] Admitted: 03/18/2020 Discharge Date/Time: 03/19/20 2:55 PM Handoff to PCP Routine hospital follow up Clinical Summary Ulises Hernandez is a 70 y.o. male with a history of IDDMII, AVR, chronic BLE edema who presented to [place] [facility] 03/18/2020 with shortness of breath. [facility] CXR showed multifocal pneumonia, small possibly loculated left pleural effusion. [facility] glucose 153, BUN 30, Cr 1.2. [facility] COVID+. He was transferred to [facility] for further evaluation and management. CTPA with small pleural effusion, multifocal infiltrates. He improved, was discharged home. 1. Acute Hypoxic Respiratory Failure: requiring 2L NC on admission in setting of COVID-19 pneumonia. Weaned off quickly. 2. COVID-19 Pneumonia: presented to [facility] with cough and shortness of breath for 4 days, known COVID+. [facility] COVID + 03/18/20. [facility] CXR showed multifocal pneumonia, small possibly loculated left pleural effusion. Started decadron for asthma, not COVID, and only for 4 days due to hyperglycemia. 3. Left Pleural Effusion: [facility] CXR showed small possibly loculated left pleural effusion. CT chest stable 03/18/20. Discharge Medications Medication List START taking these medications albuterol 90 mcg/actuation inhaler Inhale 2 (two) puffs by mouth every 4 (four) hours as needed for wheezing . benzonatate 100 MG capsule Commonly known as: TESSALON Take 1 (one) capsule (100 mg total) by mouth 3 (three) times a day as needed for cough . dexAMETHasone 6 MG tablet Commonly known as: DECADRON Take 1 (one) tablet (6 mg total) by mouth daily with breakfast for 3 days Start: 03/20/20. Start taking on: March 20, 2020 fluticasone propionate 50 mcg/actuation nasal spray Commonly known as: FLONASE Instill 2 (two) sprays into each nostril daily as needed for rhinitis . inhalational spacing device inhaler Use as instructed . Mucus Relief ER 600 mg 12 hr tablet Generic drug: guaiFENesin Take 1 (one) tablet (600 mg total) by mouth every 12 (twelve) hours for 8 days . CONTINUE taking these medications aspirin 81 MG EC tablet cholecalciferol (vitamin D3) 1,000 unit tablet ferrous sulfate 325 (65 FE) MG tablet fish oil-omega-3 fatty acids 300-1,000 mg capsule folic acid 1 MG tablet Commonly known as: FOLVITE furosemide 40 MG tablet Commonly known as: LASIX insulin lispro 100 unit/mL injection Commonly known as: HumaLOG insulin NPH 100 unit/mL injection Commonly known as: HumuLIN,NovoLIN Jardiance 25 mg Tab Generic drug: empagliflozin levothyroxine 100 MCG tablet Commonly known as: SYNTHROID, LEVOTHROID lisinopriL 5 MG tablet Commonly known as: PRINIVIL,ZESTRIL metFORMIN 1000 MG tablet Commonly known as: GLUCOPHAGE metoprolol tartrate 12.5 mg partial tablet Commonly known as: LOPRESSOR multivitamin per tablet Commonly known as: THERAGRAN pravastatin 40 MG tablet Commonly known as: PRAVACHOL SOLIQUA 100/33 SUBQ Where to Get Your Medications These medications were sent to [facility] [address] [place] [address] [address] [address] Hours: 8:00 AM to 7:00 PM Mon-Fri albuterol 90 mcg/actuation inhaler benzonatate 100 MG capsule dexAMETHasone 6 MG tablet fluticasone propionate 50 mcg/actuation nasal spray inhalational spacing device inhaler Mucus Relief ER 600 mg 12 hr tablet Physician(s) Family: Gwendolyn Ricketts MD, , Address: [address] [place], [place] [id number] Follow Up: Gwendolyn Ricketts MD [address] [place], [place] [id number] Follow up Call as needed. Additional Information: Patient seen and examined day of discharge. For more information regarding patient's care, including complete radiology reports, please contact [facility] at Patient instructions, including activity, were given to the patient/family at discharge. Please seethe After Visit Summary in the medical record for details. Time spent on discharge: > 30 minutes Completed by: Bhumi Caal on 03/19/20, 2:55 PM documented in this encounter History of Present Illness * Bhumi Caal MD - 03/19/2020 8:54 AM EST [facility] Ulises Hernandez 1950 [id number] Assessment/Plan: Ulises Hernandez is a 70 y.o. male with a history of IDDMII, AVR, chronic BLE edema who presented to [place] 03/18/2020 with shortness of breath. [facility] CXR showed multifocal pneumonia, small possibly loculated left pleural effusion. [facility] glucose 153, BUN 30, Cr 1.2. [facility] COVID+. He was transferred to [facility] for further evaluation and management. CTPA with small pleural effusion, multifocal infiltrates. 1. Acute Hypoxic Respiratory Failure: requiring 2L NC on admission in setting of COVID-19 pneumonia. Pulmonary hygiene. Monitor and titrate PRN. 2. COVID-19 Pneumonia: presented to [facility] with cough and shortness of breath for 4 days, known COVID+. [facility] COVID + 03/18/20. [facility] CXR showed multifocal pneumonia, small possibly loculated left pleural effusion. Started decadron x10 days, remdesivir, scheduled albuterol and Mucinex. Monitor respiratory status. 3. Left Pleural Effusion: [facility] CXR showed small possibly loculated left pleural effusion. CT chest stable 03/18/20. 4. Chronic BLE Edema: per hx. No prior history of CHF. Continue MICHOACANO bandages, home Lasix. 5. Skin Cancer: per hx s/p recent excision. Needs sutures removed 03/19/20. 6. History of AVR: s/p porcine AVR in 2015. 7. Hypertension: per hx. Continued BB, lisinopril, Lasix. Monitor and titrate PRN. 8. IDDMII: per hx. Held home metformin. Continued home NPH nightly, Lantus qAM with SSI. Monitor and titrate PRN. 9. Obesity: admit BMI 41. Recommend lifestyle modifications as able. 10. DVT Prophylaxis: lovenox subQ Current living situation: home with Expected Disposition:likely same Estimated discharge date: TBD Subjective: He feels much better. Off oxygen. No SOB, CP. Sugars stable. Physical Exam: BP 114/72 (BP Location: Right arm, Patient Position: Lying) Pulse 68 Temp 97.5 F (36.4 C) (Oral) Resp 18 Ht 5' 9 Wt 127 kg (280 lb) SpO2 91% BMI 41.35 kg/m General: NAD, obese Eyes: EOMI ENT: Neck supple Cardiovascular: Regular rate. Respiratory: diminished bilaterally Gastrointestinal: Soft, non tender Genitourinary: No suprapubic tenderness Musculoskeletal: moderate BLE without tenderness Skin: Warm, dry, lesion s/p excision LUE Neuro: Alert. Psych: Mood appropriate Current Medications: albuterol 2 puff Inhalation 4x daily aspirin 81 mg Oral Daily cholecalciferol (vitamin D3) 1,000 Units Oral Daily dexAMETHasone 6 mg Oral Daily with breakfast enoxaparin (LOVENOX) injection 40 mg Subcutaneous BID ferrous sulfate 325 mg Oral Daily with breakfast folic acid 1 mg Oral Daily furosemide 40 mg Oral Daily guaiFENesin 600 mg Oral Q12H DIVINA insulin glargine 60 Units Subcutaneous QAM lispro insulin 0-15 Units Subcutaneous at bedtime insulin lispro 0-30 Units Subcutaneous TID AC insulin NPH 34 Units Subcutaneous Nightly levothyroxine 100 mcg Oral Daily lisinopriL 5 mg Oral Daily with lunch metoprolol tartrate 12.5 mg Oral BID pravastatin 40 mg Oral Nightly remdesivir ivpb 100 mg Intravenous Q24H sodium chloride 0.9% 50 mL Intravenous Q24H Labs, Imaging and Studies reviewed: Results from last 7 days Lab Units 03/18/20 1334 03/18/20 1309 WBC K/mcL -- 10.94 HGB g/dL -- 13.6 HEMOGLOBIN BG g/dL 13.8 -- HEMATOCRIT, CALCULATED % 42.3 -- HCT % -- 42.1 PLT K/mcL -- 296 Results from last 7 days Lab Units 03/18/20 1334 03/18/20 1309 SODIUM mmol/L 135 135 POTASSIUM mmol/L 4.0 4.0 CHLORIDE mmol/L 97* 95* BICARB mmol/L -- 24 BUN mg/dL -- 30* CREATININE mg/dL -- 1.25 EGFR mL/min/1.73 m2 -- 58* GLUCOSE mg/dL 138* 153* CALCIUM mg/dL -- 8.7 Results from last 7 days Lab Units 03/18/20 1309 ALT U/L 22 AST U/L 26 ALK PHOS U/L 76 BILIRUBIN TOTAL mg/dL 0.8 Results from last 7 days Lab Units 03/18/20 2132 INR 1.2* documented in this encounter Assessments Diagnosis COVID-19- Primary Cancer (HCC) Other malignant neoplasm of unspecified site Diagnosis COVID-19 virus infection- Primary Hypoxia Hypoxemia COVID-19 virus detected Dyspnea, unspecified type Pneumonia of right lung due to infectious organism, unspecified part of lung Advance Directives Documents on File Type Date Recorded Patient Supervisor Travel Information Center Expl anation Advance Directives and Livin g Will 03/18/2020 4:41 PM Latest Code Status on File Code Status Date Activated Date Inactivated Comments Full Code 03/18/2020 6:54 PM 03/19/2020 4:24 PM Full Code - Unverified 03/18/2020 6:19 PM 03/18/2020 6 :54 PM Documents on File Type Date Recorded Patient Supervisor Travel Information Center Expl anation Advance Directives and Livin g Will 03/18/2020 4:41 PM Latest Code Status on File Code Status Date Activated Date Inactivated Comments Full Code 03/18/2020 6:54 PM 03/19/2020 4:24 PM Full Code - Unverified 03/18/2020 6:19 PM 03/18/2020 6 :54 PM Latest Code Status on File Code Status Date Activated Date Inactivated Comments Full Code - Unverified 03/18/2020 6:19 PM Documents on File Type Date Recorded Patient Supervisor Travel Information Center Expl anation Advance Directives and Living Will Power of Cfo Controller Summary Purpose Family History Heart Disease Status:Active Comments:Father. Grandfather Osteoarthritis Status:Active Comments:Grandfa ther Osteoarthritis Status:Active Comments:Father. Skin Cancer Status:Active Comments:Mother. Thyroid problems Status:Active Comments:Father . No Known Family History Onset:28-Mar-2021 Status:Inactive Heart Disease Status:Active Comments:Father. Grandfather Osteoarthritis Status:Active Comments:Grandfa ther Osteoarthritis Status:Active Comments:Father. Skin Cancer Status:Active Comments:Mother. Thyroid problems Status:Active Comments:Father . No Known Family History Onset:28-Mar-2021 Status:Inactive Heart Disease Status:Active Comments:Father. Grandfather Osteoarthritis Status:Active Comments:Grandfa ther Osteoarthritis Status:Active Comments:Father. Skin Cancer Status:Active Comments:Mother. Thyroid problems Status:Active Comments:Father . No Known Family History Onset:28-Mar-2021 Status:Inactive Heart Disease Status:Active Comments:Father. Grandfather Osteoarthritis Status:Active Comments:Grandfa ther Osteoarthritis Status:Active Comments:Father. Skin Cancer Status:Active Comments:Mother. Thyroid problems Status:Active Comments:Father . No Known Family History Onset:28-Mar-2021 Status:Inactive Heart Disease Status:Active Comments:Father. Grandfather Osteoarthritis Status:Active Comments:Grandfa ther Osteoarthritis Status:Active Comments:Father. Skin Cancer Status:Active Comments:Mother. Thyroid problems Status:Active Comments:Father . No Known Family History Onset:28-Mar-2021 Status:Inactive Heart Disease Status:Active Comments:Father. Grandfather Osteoarthritis Status:Active Comments:Grandfa ther Osteoarthritis Status:Active Comments:Father. Skin Cancer Status:Active Comments:Mother. Thyroid problems Status:Active Comments:Father . No Known Family History Onset:28-Mar-2021 Status:Inactive Reason for Referral Specialty Diagnoses / Procedures Referred By Contac t Referred To Contact Procedures Tangential biopsy Rodri Dodson, [facility] [address] [place] [address] Referral ID Status Reason Start Date Expiration Date V isits Requested Visits Authorized [id number] Authorized 03/18/2021 03/18/2022 1 1 Specialty Diagnoses / Procedures Referred By Contac t Referred To Contact Procedures Cryotherapy, skin lesion Rodri Dodson, [facility] [address] [place] [address] Referral ID Status Reason Start Date Expiration Date V isits Requested Visits Authorized [id number] Authorized 04/09/2021 04/09/2022 1 1 Referral ID Status Reason Start Date Expiration Date V isits Requested Visits Authorized [id number] Authorized 07/29/2022 07/29/2023 1 1 Referral ID Status Reason Start Date Expiration Date V isits Requested Visits Authorized [id number] Authorized 07/29/2022 07/29/2023 1 1 Referral ID Status Reason Start Date Expiration Date V isits Requested Visits Authorized [id number] Authorized 07/29/2022 07/29/2023 1 1 Referral ID Status Reason Start Date Expiration Date V isits Requested Visits Authorized [id number] Authorized 07/29/2022 07/29/2023 1 1 Referral ID Status Reason Start Date Expiration Date V isits Requested Visits Authorized [id number] Authorized 01/23/2023 01/23/2024 1 1 Referral ID Status Reason Start Date Expiration Date V isits Requested Visits Authorized [id number] Authorized 01/23/2023 01/23/2024 1 1 Additional Source Comments Reason for Visit (unrecogniz ed section and content) Reason Comments Shortness of Breath Reason Comments Suture / Staple Removal Biopsy Reason Comments Suture / Staple Removal Follow-up cryo- ak to l ear Reason Comments Skin Check Upper body only- Spo t L forearm, several spots on face I, Suyapa Cheatham RN, has acted as a geochemist during this exam. I attest that I performed the duties of a scribe and geochemist for this encounter in the presence of Rodri Dodson, DO 07/29/2022 at 9:19 AM. I reviewed the information recorded by the scribe for accuracy and I attest that I performed all work during this encounter and that the scribe only recorded my findings. Rodri Dodson, 07/29/2022 at 9:19 AM. Reason Comments Skin Check Cryo- l forearm, pre vious ak spots still there, l ear, r faceI, Sara Morales MA, has acted as a geochemist during this exam. I attest that I performed the duties of a scribe and geochemist for this encounter in the presence of Rodri Dodson, 01/23/2023 at 10:09 AM. I reviewed the information recorded by the scribe for accuracy and I attest that I performed all work during this encounter and that the scribe only recorded my findings. Rodri Dodson, 01/23/2023 at 10:09 AM. Shana Brown PA-C - 03/18/2020 5:57 PM EST H&P Notes (unrecognized sect ion and content) [facility] History and Physical Note 03/18/20 Ulises Hernandez 1950 [id number] Assessment/Plan: Ulises Hernandez is a 70 y.o. male with a history of IDDMII, AVR, chronic BLE edema who presented to [facility] 03/18/2020 with shortness of breath. [facility] CXR showed multifocal pneumonia, small possibly loculated left pleural effusion. [facility] glucose 153, BUN 30, Cr 1.2. [facility] COVID+. He was transferred to [facility] for further evaluation and management. 1. Acute Hypoxic Respiratory Failure: requiring 2L NC on admission in setting of COVID-19 pneumonia. Pulmonary hygiene. Monitor and titrate PRN. 2. COVID-19 Pneumonia: presented to [facility] with cough and shortness of breath for 4 days, known COVID+. [facility] COVID + 03/18/20. [facility] CXR showed multifocal pneumonia, small possibly loculated left pleural effusion. Started decadron x10 days, remdesivir, scheduled albuterol and Mucinex. Monitor respiratory status. 3. Left Pleural Effusion: [facility] CXR showed small possibly loculated left pleural effusion. Ordered CT Chest to further evaluate. 4. Chronic BLE Edema: per hx. No prior history of CHF. Continue MICHOACANO bandages, home Lasix. 5. Skin Cancer: per hx s/p recent excision. Needs sutures removed 03/19/20. 6. History of AVR: s/p porcine AVR in 2015. 7. Hypertension: per hx. Continued BB, lisinopril, Lasix. Monitor and titrate PRN. 8. IDDMII: per hx. Held home metformin. Continued home NPH nightly, Lantus qAM with SSI. Monitor and titrate PRN. 9. Obesity: admit BMI 41. Recommend lifestyle modifications as able. 10. DVT Prophylaxis: lovenox subQ Current living situation: home with Expected Disposition:likely same Estimated discharge date: TBD Chief Complaint: Cough, shortness of breath History of Present Illness: Ulises Hernandez is a 70 y.o. male with a history of IDDMII, HTN who presented to 03/18/2020 with shortness of breath. [facility] CXR showed multifocal pneumonia, small possibly loculated left pleural effusion. [facility] COVID+. [facility] glucose 153, BUN 30, Cr 1.2. Patient is new to me. Medical record reviewed including lab, vitals including pulse ox, diagnostics, and labor relations consultant recommendations. Patient's plan of care discussed with Dr. Murphy ([facility] attending). Final attestation to follow. Mr. Hernandez to the [facility] with complaints of shortness of breath and cough. He states his recently recovered from Covid. He reports that symptoms began on Thursday with a cough and then he was tested for Covid however has not received the results yet. His cough continued to worsen and he did develop some shortness of breath which led him to present to the emergency department today. He has been taking Mucinex at home for his congestion. He has history of chronic bilateral lower extremity edema which is not changed for him. He has had a decreased appetite. He has not received any steroids. He has a history of skin cancer with recent excision and states he needs to have his stitches out tomorrow. He denies any fever, chills, chest pain, vomiting, diarrhea. ROS: 10 systems were reviewed and negative, except as noted above. Past Medical, Surgical, Social, Family History: Past Medical History: Diagnosis Date Bilateral lower extremity edema Diabetes mellitus (HCC) Skin Cancer (HCC) Past Surgical History: Procedure Laterality Date AORTIC VALVE REPLACEMENT 2016 KNEE SURGERY TONSILLECTOMY Social History Socioeconomic History Marital status: Spouse name: Not on file Number of children: Not on file Years of education: Not on file Highest education level: Not on file Occupational History Not on file Social Needs Financial resource strain: Not on file Food insecurity Worry: Not on file Inability: Not on file Transportation needs Medical: Not on file Non-medical: Not on file Tobacco Use Smoking status: Never Smoker Smokeless tobacco: Never Used Substance and Sexual Activity Alcohol use: Never Frequency: Never Drug use: Never Sexual activity: Not on file Lifestyle Physical activity Days per week: Not on file Minutes per session: Not on file Stress: Not on file Relationships Social connections Talks on phone: Not on file Gets together: Not on file Attends hindu service: Not on file Active member of club or organization: Not on file Attends meetings of clubs or organizations: Not on file Relationship status: Not on file Other Topics Concern Not on file Social History Narrative Not on file Family History Problem Relation Age of Onset Melanoma Mother Home Medications: Outpatient Medications as of 03/18/2020 Medication Sig cholecalciferol, vitamin D3, 1,000 unit tablet Take 1,000 Units by mouth daily . empagliflozin (Jardiance) 25 mg Tab Take 25 mg by mouth . ferrous sulfate 325 (65 FE) MG tablet Take 325 mg by mouth daily with breakfast . folic acid (FOLVITE) 1 MG tablet Take 1 mg by mouth daily . furosemide (LASIX) 40 MG tablet Take 40 mg by mouth daily . insulin lispro (HumaLOG) 100 unit/mL injection Inject under the skin 3 (three) times a day before meals 5 Units before Breakfast and 20 Units before Dinner . insulin NPH (HumuLIN,NovoLIN) 100 unit/mL injection Inject 34 Units under the skin nightly . levothyroxine (SYNTHROID, LEVOTHROID) 100 MCG tablet Take 100 mcg by mouth once daily . lisinopriL (PRINIVIL,ZESTRIL) 5 MG tablet Take by mouth daily . metFORMIN (GLUCOPHAGE) 1000 MG tablet Take 1,000 mg by mouth 2 (two) times a day with meals . metoprolol tartrate (LOPRESSOR) 12.5 mg partial tablet Take 12.5 mg by mouth 2 (two) times a day . multivitamin (THERAGRAN) per tablet Take 1 tablet by mouth daily . omega-3 fatty acids/fish oil (fish oil-omega-3 fatty acids) 300-1,000 mg capsule Take 2 g by mouth daily . pravastatin (PRAVACHOL) 40 MG tablet Take 40 mg by mouth nightly . Physical Exam: BP 101/64 (BP Location: Right arm, Patient Position: Sitting) Pulse 83 Temp (!) 100.9 F (38.3 C) (Oral) Resp 14 Ht 5' 9 Wt 127 kg (280 lb) SpO2 91% BMI 41.35 kg/m General: NAD, obese Eyes: EOMI ENT: Neck supple Cardiovascular: Regular rate. Respiratory: diminished bilaterally Gastrointestinal: Soft, non tender Genitourinary: No suprapubic tenderness Musculoskeletal: moderate BLE without tenderness Skin: Warm, dry, lesion s/p excision LUE Neuro: Alert. Psych: Mood appropriate Labs, Imaging, and Studies reviewed: Results from last 7 days Lab Units 03/18/20 1334 03/18/20 1309 WBC K/mcL -- 10.94 HGB g/dL -- 13.6 HEMOGLOBIN BG g/dL 13.8 -- HEMATOCRIT, CALCULATED % 42.3 -- HCT % -- 42.1 PLT K/mcL -- 296 Results from last 7 days Lab Units 03/18/20 1334 03/18/20 1309 SODIUM mmol/L 135 135 POTASSIUM mmol/L 4.0 4.0 CHLORIDE mmol/L 97* 95* BICARB mmol/L -- 24 BUN mg/dL -- 30* CREATININE mg/dL -- 1.25 EGFR mL/min/1.73 m2 -- 58* GLUCOSE mg/dL 138* 153* CALCIUM mg/dL -- 8.7 Results from last 7 days Lab Units 03/18/20 1309 ALT U/L 22 AST U/L 26 ALK PHOS U/L 76 BILIRUBIN TOTAL mg/dL 0.8 Associated attestation - Enzo Murphy MD - 03/18/2020 9:01 PM EST I have independently seen and examined the patient today. I have reviewed the history, physical, diagnosis and care plan with the JAKY Brown. I have personally reviewed, all labs, imaging, and records. I confirm the assessment and treatment plan except as documented below 70 year old female with pmh of Type 2 DM, AVR, chronic BLE edema who presented to [facility] with shortness of breath. His was diagnosed with COVID 19. On arrival found to be COVID positive with hypoxia and was transferred to [facility]. O/e: Alert, awake and oriented x 3, no focal neurological deficits, diminished left base, abdomen soft, no edema Febrile to 100.9 and on 2 L with saturation low 90s. LFT , WBC normal. Inflammatory markers pending. Assessment Viral pneumonia due to COVID 19 with hypoxia. Type 2 DM Left pleural effusion S/p AVR Obesity Hypertension Plan: O2 support - wean off as able. Started on steroids and Remdesevir. Special isolation precautions. Lovenox For Dvt ppx. documented in this encounter Enma Loyola, HANNA - 03/18/2020 4:13 PM Lamont Jean RN - 03/18/2020 3:34 PM Jennifer Henderson CNP - 03/18/2020 1:11 PM Gwendolyn Moody RN - 03/18/2020 1:07 PM EST ED Notes (unrecognized secti on and content) Patient transported to [facility]. Receiving unit notified of patient's arrival. Patient's vital signs BP 140/75, HR 79, RR 16, Pulse Ox 94% on supplemental O2 at 2LPM . Patient has a chief complaint of SOB; chest pain. Patient does have patent IV access. Patient was not on cardiac cath lab radiology technologist prior to arrival. Patient transported to room [address] [place] [address] on arrival. documented in this encounter Critical care ambulance arrives to transport pt to [facility]. ED PROVIDER NOTE [facility] NAME: Ulises Hernandez AGE: 70 y.o. : 1950 VISIT DATE: 03/18/2020 CSN: [id number] PCP: No primary care provider on file. Chief Complaint Patient presents with Shortness of Breath Patient presents to the emergency department complaints of cough and shortness of breath. This is a 70-year-old morbidly obese male who states that he has been sick for the past 4 days with cough and shortness of breath. Patient does have history of diabetes and has had skin cancer. Patient did go to a urgent care close to [place] and is still waiting his results. Patient states that he has been feeling short of breath with a productive cough. Patient states he has had pneumonia several times. Patient states he did get a influenza vaccine this year. Patient denies any history of COPD and is a non-smoker. Patient denies having any chest pain, nausea, vomiting or diarrhea. Patient denies any sore throat or headache. Patient denies any generalized body aches. Patient denies any nasal drainage or sore throat. Patient denies any history of asthma. 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 No pertinent family history. Social History Socioeconomic History Marital status: Not on file Spouse name: Not on file Number of children: Not on file Years of education: Not on file Highest education level: Not on file Occupational History Not on file Social Needs Financial resource strain: Not on file Food insecurity Worry: Not on file Inability: Not on file Transportation needs Medical: Not on file Non-medical: Not on file Tobacco Use Smoking status: Never Smoker Smokeless tobacco: Never Used Substance and Sexual Activity Alcohol use: Never Frequency: Never Drug use: Never Sexual activity: Not on file Lifestyle Physical activity Days per week: Not on file Minutes per session: Not on file Stress: Not on file Relationships Social connections Talks on phone: Not on file Gets together: Not on file Attends hindu service: Not on file Active member of club or organization: Not on file Attends meetings of clubs or organizations: Not on file Relationship status: Not on file Other Topics Concern Not on file Social History Narrative Not on file No current outpatient medications on file prior to encounter. No Known Allergies Review of Systems Constitutional: Negative for chills and fever. HENT: Negative for sore throat. Eyes: Negative for discharge and visual disturbance. Respiratory: Positive for cough and shortness of breath. Negative for chest tightness and wheezing. Cardiovascular: Negative for chest pain. Gastrointestinal: Negative for abdominal distention, diarrhea, nausea and vomiting. Genitourinary: Negative for dysuria, frequency and urgency. Musculoskeletal: Negative for back pain, neck pain and neck stiffness. Skin: Negative for rash. Neurological: Negative for dizziness. Hematological: Negative for adenopathy. Psychiatric/Behavioral: The patient is not nervous/anxious. Patient Vitals for the past 24 hrs: BP Temp Temp src Pulse Resp SpO2 Height Weight 03/18/20 1257 94 % 03/18/20 1256 (!) 138/54 99.1 F (37.3 C) Oral 93 18 (!) 86 % 5' 9 127 kg (280 lb) Physical Exam Vitals signs and nursing note reviewed. Constitutional: Appearance: He is well-developed. HENT: Head: Normocephalic. Right Ear: External ear normal. Left Ear: External ear normal. Nose: Nose normal. Eyes: Conjunctiva/sclera: Conjunctivae normal. Pupils: Pupils are equal, round, and reactive to light. Neck: Musculoskeletal: Normal range of motion and neck supple. Cardiovascular: Rate and Rhythm: Normal rate and regular rhythm. Heart sounds: Normal heart sounds. No murmur. No friction rub. Pulmonary: Effort: Pulmonary effort is normal. Abdominal: General: Bowel sounds are normal. Palpations: Abdomen is soft. Musculoskeletal: Normal range of motion. Skin: General: Skin is warm and dry. Findings: No rash. Neurological: Mental Status: He is alert and oriented to person, place, and time. Psychiatric: Behavior: Behavior normal. Thought Content: Thought content normal. Judgment: Judgment normal. Patient was hypoxic on room air on arrival. Laboratory & Radiographic Imaging (if done): Results for orders placed or performed during the hospital encounter of 03/18/20 COVID-19/Influenza A,B Molecular Specimen: Nasopharyngeal; Swab Result Value Ref Range SARS-CoV-2 Detected (A) Not Detected Influenza A Not Detected Not Detected Influenza B Not Detected Not Detected BMP Result Value Ref Range Sodium 135 135 - 145 mmol/L Potassium 4.0 3.5 - 5.1 mmol/L Chloride 95 (L) 98 - 108 mmol/L Bicarbonate 24 21 - 32 mmol/L Anion Gap 20 10 - 20 mmol/L Glucose 153 (H) 65 - 99 mg/dL BUN 30 (H) 8 - 25 mg/dL Creatinine 1.25 0.80 - 1.30 mg/dL eGFR 58 (L) >=60 mL/min/1.73 m2 BUN/Creatinine Ratio 24.0 (H) 10.0 - 20.0 Calcium 8.7 8.4 - 10.2 mg/dL POC Venous Blood Gas Panel-Pulm Result Value Ref Range pH, Venous 7.42 7.32 - 7.42 pCO2, Pineda 42.5 41.0 - 51.0 mm Hg pO2, Pineda <30 25 - 40 mm Hg Base Excess, Pineda 2.9 (H) -2.0 - 2.0 HCO3, [place] 27.7 24.0 - 28.0 mmol/L Ionized Calcium 4.4 (L) 4.5 - 5.3 mg/dL Lactic Acid 1.2 0.6 - 2.0 mmol/L Hemoglobin, Blood Gas 13.8 13.5 - 17.5 g/dL Hematocrit, Calculated 42.3 41.0 - 53.0 % O2 Sat, Pineda 27.0 (L) 40.0 - 70.0 % O2 Hb 26.6 No established reference range % Carboxyhemoglobin 1.0 <=1.5 % of total Hb Methemoglobin <1.0 0.0 - 2.0 % FIO2 24 IMV 0 TIDAL VOLUME 0 RESP RATE 0 Sodium 135 135 - 145 mmol/L Potassium 4.0 3.5 - 5.1 mmol/L Glucose 138 (H) 65 - 99 mg/dL Chloride 97 (L) 98 - 108 mmol/L CBC Auto Differential Result Value Ref Range WBC 10.94 4.50 - 11.00 K/mcL RBC 4.54 4.50 - 5.90 M/mcL Hemoglobin 13.6 13.5 - 17.5 g/dL Hematocrit 42.1 41.0 - 53.0 % MCV 92.7 80.0 - 100.0 fL MCH 30.0 26.0 - 34.0 pg MCHC 32.3 31.0 - 37.0 g/dL Platelets 296 150 - 400 K/mcL RDW - CV 14.6 11.6 - 14.8 % MPV 9.3 (L) 9.4 - 12.4 fL Neutrophils 53.3 % Lymphocytes 43.6 % Monocytes 2.5 % Eosinophils 0.1 % Basophils 0.2 % IG Percent 0.30 % Neutrophils Abs 5.84 1.70 - 7.00 K/mcL Lymphocytes Abs 4.77 (H) 0.90 - 4.00 K/mcL Monocytes Abs 0.27 (L) 0.30 - 0.90 K/mcL Eosinophils Abs 0.01 0.00 - 0.50 K/mcL Basophils Abs 0.02 0.00 - 0.30 K/mcL IG Absolute 0.03 0.00 - 0.30 K/mcL Nucleated RBC 0.0 % Nucleated RBC Abs 0.00 0.00 - 0.00 K/mcL XR Chest 1 View (Results Pending) Procedures MDM Patient was updated on plan of care by the ED physician. Patient was positive for COVID-19. Patient sodium is 135 potassium 4.0. Glucose 153 patient did not have any evidence of metabolic acidosis. White blood cell count was normal at 10.94. Hemoglobin 13.6 and normal as well. Chest xray currently pending. Pt will be transferred to [facility] or Covid positive with hypoxia. The transfer was initiated by the ED physician. The patient has been informed that they may have pre-hypertension or hypertension based on a blood pressure reading in the Emergency Department. I recommend that the patient call the primary care provider listed on their discharge instructions or a physician of their choice as soon as possible to arrange follow-up in the next 4 weeks for further evaluation of possible pre-hypertension or hypertension. . Clinical Impression: No diagnosis found. ED Disposition None Follow-up Information Follow-up information has not been specified. Contact information for after-discharge care Follow-up information has not been specified. Jennifer Chadwick CNP 03/18/20 1423 Pt reports being short of breath and a cough since . documented in this encounter (unrecognized sect ion and content) No Status Records FoundNo Status Records FoundNo Status Records FoundNo Status Records FoundNo Status Records FoundNo Status Records FoundNo Status Records FoundNo Status Records Found INFORMATION SOURCE (unrecogn ized section and content) DATE CREATED AUTHOR AUTHOR'S ORGANIZ ATION 04/08/2020 [facility] DATE CREATED AUTHOR AUTHOR'S ORGANIZ ATION 04/26/2020 [facility] DATE CREATED AUTHOR AUTHOR'S ORGANIZ ATION 03/21/2022 [facility] DATE CREATED AUTHOR AUTHOR'S ORGANIZ ATION 12/24/[address] [facility] DATE CREATED AUTHOR AUTHOR'S ORGANIZ ATION 01/05/2023 [facility] DATE CREATED AUTHOR AUTHOR'S ORGANIZ ATION 01/31/2023 [facility] DATE CREATED AUTHOR AUTHOR'S ORGANIZ ATION 02/28/2023 [facility] ED Attestation Note - Beverly Wharton MD - 03/18/2020 1:56 PM ESTED Procedure Note - Beverly Wharton MD - 03/18/2020 1:33 PM EST Miscellaneous Notes (unrecog nized section and content) ED Attestation I personally interviewed the patient. I personally examined the patient. I discussed the patient with COMMERCIAL DIRECTOR/PA. I agree with the COMMERCIAL DIRECTOR/PA treatment plan. I agree with the COMMERCIAL DIRECTOR/PA plan of care. I agree with the COMMERCIAL DIRECTOR/PA dispo as documented. 70-year-old male presents the ED with 4-day history of shortness of breath. The patient states that he was tested for Covid over [place] at an urgent care, but does not have the results yet. States that his 's been sick at home with Covid. Patient states that his shortness of breath is gotten worse. Denies any chest pain with it. States is worse when he exerts himself. Patient does not have any home oxygen, does not have any known lung problems. On my evaluation, patient appears in no acute distress. Hemodynamically hypoxic on room air saturating 86%, other vitals within normal limits. Heart is regular rate and sinus rhythm. Lungs are diminished to auscultation bilaterally, no crackles, no wheezing, no acute distress. Abdomen is soft, nontender, nondistended. Neurologically patient is awake, alert oriented x3, and nonfocal. At this time, patient's COVID-19 swab was positive. Chest x-ray showed Covid pneumonia. Since he is requiring supplemental O2, will transfer him to [place] for admission for further management treatment. He is agreeable plan of care. He will be transferred in stable condition. XR Chest 1 View (Results Pending) Recent Results (from the past 12 hour(s)) BMP Collection Time: 03/18/20 1:09 PM Result Value Ref Range Sodium 135 135 - 145 mmol/L Potassium 4.0 3.5 - 5.1 mmol/L Chloride 95 (L) 98 - 108 mmol/L Bicarbonate 24 21 - 32 mmol/L Anion Gap 20 10 - 20 mmol/L Glucose 153 (H) 65 - 99 mg/dL BUN 30 (H) 8 - 25 mg/dL Creatinine 1.25 0.80 - 1.30 mg/dL eGFR 58 (L) >=60 mL/min/1.73 m2 BUN/Creatinine Ratio 24.0 (H) 10.0 - 20.0 Calcium 8.7 8.4 - 10.2 mg/dL CBC Auto Differential Collection Time: 03/18/20 1:09 PM Result Value Ref Range WBC 10.94 4.50 - 11.00 K/mcL RBC 4.54 4.50 - 5.90 M/mcL Hemoglobin 13.6 13.5 - 17.5 g/dL Hematocrit 42.1 41.0 - 53.0 % MCV 92.7 80.0 - 100.0 fL MCH 30.0 26.0 - 34.0 pg MCHC 32.3 31.0 - 37.0 g/dL Platelets 296 150 - 400 K/mcL RDW - CV 14.6 11.6 - 14.8 % MPV 9.3 (L) 9.4 - 12.4 fL Neutrophils 53.3 % Lymphocytes 43.6 % Monocytes 2.5 % Eosinophils 0.1 % Basophils 0.2 % IG Percent 0.30 % Neutrophils Abs 5.84 1.70 - 7.00 K/mcL Lymphocytes Abs 4.77 (H) 0.90 - 4.00 K/mcL Monocytes Abs 0.27 (L) 0.30 - 0.90 K/mcL Eosinophils Abs 0.01 0.00 - 0.50 K/mcL Basophils Abs 0.02 0.00 - 0.30 K/mcL IG Absolute 0.03 0.00 - 0.30 K/mcL Nucleated RBC 0.0 % Nucleated RBC Abs 0.00 0.00 - 0.00 K/mcL COVID-19/Influenza A,B Molecular Collection Time: 03/18/20 1:11 PM Specimen: Nasopharyngeal; Swab Result Value Ref Range SARS-CoV-2 Detected (A) Not Detected Influenza A Not Detected Not Detected Influenza B Not Detected Not Detected POC Venous Blood Gas Panel-Pulm Collection Time: 03/18/20 1:34 PM Result Value Ref Range pH, Venous 7.42 7.32 - 7.42 pCO2, [place] 42.5 41.0 - 51.0 mm Hg pO2, [place]a <30 25 - 40 mm Hg Base Excess, [place] 2.9 (H) -2.0 - 2.0 HCO3, [place] 27.7 24.0 - 28.0 mmol/L Ionized Calcium 4.4 (L) 4.5 - 5.3 mg/dL Lactic Acid 1.2 0.6 - 2.0 mmol/L Hemoglobin, Blood Gas 13.8 13.5 - 17.5 g/dL Hematocrit, Calculated 42.3 41.0 - 53.0 % O2 Sat, [place] 27.0 (L) 40.0 - 70.0 % O2 Hb 26.6 No established reference range % Carboxyhemoglobin 1.0 <=1.5 % of total Hb Methemoglobin <1.0 0.0 - 2.0 % FIO2 24 IMV 0 TIDAL VOLUME 0 RESP RATE 0 Sodium 135 135 - 145 mmol/L Potassium 4.0 3.5 - 5.1 mmol/L Glucose 138 (H) 65 - 99 mg/dL Chloride 97 (L) 98 - 108 mmol/L The patient has been informed that they may have pre-hypertension or hypertension based on a blood pressure reading in the Emergency Department. I recommend that the patient call the primary care provider listed on their discharge instructions or a physician of their choice as soon as possible to arrange follow-up in the next 4 weeks for further evaluation of possible pre-hypertension or hypertension. . Associated Order(s): EKG 12-lead EKG 12-lead Date/Time: 03/18/2020 1:33 PM Performed by: Beverly Wharton MD Authorized by: Beverly Wharton MD Interpreted by ED attending physician Rhythm: sinus rhythm BPM: 87 Conduction: conduction normal ST Segments: ST segments normal T Flattening: aVL Clinical impression: non-specific ECG documented in this encounter Care Teams (unrecognized sec tion and content) Lithographic Artist Relationship Specialty Start Date End Date Tamara Hood PA PCP - General 01/14/21 Rodri Dodson DO [address] [place] [address] Consulting Physician Dermatology 07/01/18 Lithographic Artist Relationship Specialty Start Date End Date Tamara Hood PA PCP - General 01/14/21 Rodri Dodson DO [address] [place] [address] Consulting Physician Dermatology 07/01/18 Lithographic Artist Relationship Specialty Start Date End Date Tamara Hood PA PCP - General 01/14/21 Rodri Dodson DO [facility] [address] [place] [address] Consulting Physician Dermatology 07/01/18 FOR RECORDS PERTAINING TO PATIENTS WHO ARE OR HAVE BEEN ENROLLED IN A CHEMICAL DEPENDENCY/SUBSTANCEABUSE PROGRAM, SOME INFORMATION MAY BE OMITTED. This clinical summary was aggregated from multiple sources. Caution should be exercised in using it in the provision of clinical care. This summary normalizes information from multiple sources, and as a consequence, information in this document may materially change the coding, format and clinical context of patient data. In addition, data may be omitted in some cases. CLINICAL DECISIONS SHOULD BE BASED ON THE PRIMARY CLINICAL RECORDS. [employer] provides no warranty or guarantee of the accuracy or completeness of information in this document.
--- NOTE | 2023-05-26 14:05 | STRESSREP ---
Stress Test Report Pharmacologic myocardial perfusion stress test. 73-year-old lady with a history of coronary artery disease Resting EKG demonstrates sinus rhythm with a rate of 78 bpm. Resting blood pressure is 122/82 mmHg. 0.4 mg of regadenoson was infused per usual protocol followed by rapid intravenous saline flush injection. Continuous EKG monitoring was performed. The maximum heart rate was 98 bpm which was 66% of max impacted heart rate the maximum workload was 1 metabolic equivalent. At rest there were no ST or T wave changes noted to suggest ischemia and at peak infusion nonspecific ST changes were noted which did not meet the criteria for ischemia. No clinical angina is noted. The final blood pressure was 112/62 mmHg. Myocardial perfusion protocol. 14.6 mCi of technetium 99m sestamibi was injected at rest. 0.4 mg of regadenoson was infused per usual protocol. At peak infusion 44.6 mCi of technetium 99m sestamibi was injected stress images were obtained stress and rest images were reconstructed and compared in the short axis vertical long and horizontal long axis. Gated images were also obtained. Perfusion SPECT analysis: Review of the stress images demonstrate normal uptake of tracer noted in all areas of the myocardium. The resting images similar demonstrated normal uptake of tracer noted in all areas of the myocardium. No areas of reversibility are noted to suggest ischemia and no previous infarct is noted. Gated SPECT analysis: The gated ejection fraction is 65%. Conclusion: Normal pharmacologic myocardial perfusion stress test. Preserved ejection fraction.
== END | disposition home or self-care (01) ==
LOC: CVS 06:00
PROVIDERS: Referring Provider Physician Assistant Medical; Visit Provider Physician Assistant Medical
DX: I25.10 Atherosclerotic heart disease of native coronary artery without angina pectoris (principal)
CPT/HCPCS: 78452; 93017; A9500; A4216; J2785

== ENCOUNTER → 2024-03-29 | Outpatient (CLI) | payer MEDICARE, OTHER, SELFPAY | END | disposition home or self-care (01) | LOC: PSN 12:15 | PROVIDERS: Referring Provider Nurse Practitioner Family; Visit Provider Nurse Practitioner Family | DX: R00.0 Tachycardia, unspecified (principal); I48.0 Paroxysmal atrial fibrillation; I48.92 Unspecified atrial flutter; R00.2 Palpitations | CPT/HCPCS: 93225; 93226 ==

== ENCOUNTER → 2024-04-13 | Outpatient (CLI) | payer MEDICARE, OTHER, SELFPAY ==
--- NOTE | 2024-04-13 14:16 | ECHOCS_ITS ---
Reason For Study: ATRIAL FIBRILLATION Procedure This was a 2D Doppler, Color Flow transthoracic echocardiogram. The study was technically difficult. Contrast injection was performed. Exam performed in department. Left Ventricle Normal LV size. Left ventricular systolic function is normal. The left ventricular ejection fraction is 55 %. No regional wall motion abnormalities noted. Right Ventricle Normal RV size. Normal systolic function. Atria Normal left atrium. Normal right atrium. Mitral Valve There is mild to moderate mitral annular calcification. Moderate (2+) eccentric mitral valve insufficiency. Tricuspid Valve Normal tricuspid valve. Mild (1+) tricuspid valve insufficiency. Pulmonary artery systolic pressure is 36 mmHg. Aortic Valve Peak aortic valve gradient 13 mmHg. Mean aortic valve gradient 7 mmHg. Bioprosthetic aortic valve. Pulmonic Valve Normal pulmonic valve. Great Vessels Normal aortic root. The pulmonary artery is normal size. Inferior vena cava collapse with respiration. Pericardium/Pleural No pericardial effusion. Medication 22 gauge I.V. with prn adaptor inserted into left arm. Diluted definity 2.5ml given slow IV push to enhance endocardial definition. MMode/2D Measurements & Calculations LVIDd: 4.4 cm IVSd: 1.3 cm LVOT diam: 2.1 cm LVIDs: 2.4 cm LVPWd: 1.3 cm RVDd: 4.2 cm FS: 46.0 % LVOT area: 3.5 cm2 asc Aorta Diam: 4.4 cm LAV(MOD-bp): 61.4 ml LVAd ap4: 40.0 cm2 LAV(MOD-bp) Indexed: 26.5 ml/m2 LVLd ap4: 8.9 cm LAV(MOD-sp2): 57.3 ml EDV(MOD-sp4): 146.5 ml LAV(MOD-sp4): 60.0 ml EDV(sp4-el): 152.3 ml LVAs ap4: 24.6 cm2 LVLs ap4: 7.7 cm ESV(MOD-sp4): 67.0 ml ESV(sp4-el): 66.8 ml EF(MOD-sp4): 54.3 % EF(sp4-el): 56.1 % LVAd ap2: 40.4 cm2 SV(MOD-sp4): 79.5 ml SV(MOD-sp2): 83.6 ml LVLd ap2: 8.9 cm SI(MOD-sp4): 34.3 ml/m2 SI(MOD-sp2): 36.1 ml/m2 EDV(MOD-sp2): 150.6 ml EDV(sp2-el): 156.3 ml LVAs ap2: 24.0 cm2 LVLs ap2: 7.1 cm ESV(MOD-sp2): 67.0 ml ESV(sp2-el): 68.6 ml EF(MOD-sp2): 55.5 % SV(sp4-el): 85.5 ml Ao sinus diam: 3.[address] Junction: 2.5 cm LA dimension(2D): 4.5 cm LA A4 area: 22.1 cm2 RA A4 area: 20.6 cm2 TAPSE: 1.5 cm Time Measurements MV dec time: 0.31 sec Doppler Measurements & Calculations MV E max dillon: 159.5 cm/sec Lat Peak E' Dillon: 10.8 cm/sec Med Peak E' Dillon: 11.0 cm/sec E/E' lat: 14.8 E/E' med: 14.4 MV V2 max: 174.1 cm/sec Ao V2 max: 176.2 cm/sec LV V1 max: 118.3 cm/sec MV max P.1 mmHg Ao max P.5 mmHg LV V1 max P.6 mmHg MV V2 mean: 63.8 cm/sec Ao V2 mean: 125.3 cm/sec LV V1 mean P.1 mmHg MV mean P.7 mmHg Ao mean P.9 mmHg LV V1 mean: 85.0 cm/sec MV V2 VTI: 45.7 cm Ao V2 VTI: 40.2 cm LV V1 VTI: 25.9 cm MVA(VTI): 2.0 cm2 AV (velocity ratio): 0.64 DEVIN(I,D): 2.3 cm2 DEVIN(V,D): 2.4 cm2 SV(LVOT): 91.1 ml PA V2 max: 73.9 cm/sec TR max dillon: 285.9 cm/sec TR max P.7 mmHg ECHO/Echo Complete W/ Contrast Interpretation Summary Normal LV size. Left ventricular systolic function is normal. The left ventricular ejection fraction is 55 %. Pulmonary artery systolic pressure is 36 mmHg. Mean aortic valve gradient 7 mmHg. Contrast injection was performed. Ordering Physician: Edelmira Velasco Referring Physician: Edelmira Velasco Performed By: Alka Patel RDCS
== END | disposition home or self-care (01) ==
PROVIDERS: Referring Provider Physician Assistant Medical; Visit Provider Physician Assistant Medical
DX: I48.0 Paroxysmal atrial fibrillation (principal)
CPT/HCPCS: 93306; Q9957; A4216; C8929

== ENCOUNTER → 2024-06-13 | Outpatient (CLI) | payer MEDICARE, OTHER, SELFPAY ==
--- NOTE | 2024-06-13 10:35 | RAD_ITS ---
EXAM: XR Chest, 2 Views CLINICAL INDICATION: FOR PPM IMPLANT ON 06/20/24 TECHNIQUE: Frontal and lateral views of the chest. COMPARISON: No relevant prior studies available. FINDINGS: LUNGS AND PLEURAL SPACES: Pulmonary congestion and edema. Pneumonia cannot be excluded. No pneumothorax. HEART: Unremarkable. No cardiomegaly. MEDIASTINUM: Unremarkable. Normal mediastinal contour. BONES/JOINTS: Unremarkable. No acute fracture. RAD/Chest PA and Lateral IMPRESSION: Pulmonary congestion and edema. Pneumonia cannot be excluded. Reading [facility]
[2024-06-13 10:56] LABS: Bacteria 0 SEEN /hpf (None Seen); Mucous, Urine 0 SEEN /hpf (<or=2+); White Blood Cells 0 SEEN /hpf (0-5)
[2024-06-13 11:42] LABS: Color, Urine Yellow (Yellow); Glucose, Dipstick 1000 mg/dl (Normal); Ketone-Dipstick Negative (Negative); Leukocyte Esterase-Dipstick Negative /ul (Negative); Nitrite-Dipstick Negative (Negative); Occult Blood-Urine Negative /ul (Negative); Protein-Dipstick 30 mg/dl (Negative); Urine Bilirubin Dipstick Negative (Negative); Urine Clarity Clear (Clear); Urine Urobilinogen Normal (Normal); Urine pH 6.5 (5.0 - 8.0)
[2024-06-13 11:48] LABS: Hematocrit 40.7 % (40-54); Hemoglobin 12.8 g/dL (13.0-16.5); Mean Corp Hgb Conc 31.4 g/dL (32-36); Mean Corpuscular Hgb 31.8 pg (27.0-32.0); Mean Platelet Vol. 9.7 fl (6.2-12.0); Platelet Count 262 K/mm3 (150-450); RBC Distribution Width CV 15.4 % (11.6-14.6); RBC Distribution Width SD 57.1 fl (35.1-43.9); Red Blood Count 4.03 M/mm3 (4.6-6.2)
[2024-06-13 11:54] LABS: Squamous Epithelial Cells - UA 0-5 SEEN /hpf (0-5)
[2024-06-13 14:44] LABS: Anion Gap 14 (5-15); BUN 27 mg/dL (4-19); BUN/Creat Ratio 30.1 RATIO (10-20); Calcium,Total 9.2 mg/dL (7.6-11.0); Carbon Dioxide 25.3 mmol/L (21.0-32.0); Chloride 100 mmol/L (98-108); EST Glomerular Filtration Rate 90 (>60); Glucose 146 mg/dL (70-99); Potassium 4.5 mmol/L (3.3-5.1); Sodium Level 139 mmol/L (133-145)
[2024-06-13 18:38] LABS: Red Blood Cells-Urine 0 SEEN /hpf (0-5)
== END | disposition home or self-care (01) ==
LOC: RAD 10:29
PROVIDERS: Referring Provider Physician Assistant Medical; Visit Provider Physician Assistant Medical
DX: I49.5 Sick sinus syndrome (principal); I48.0 Paroxysmal atrial fibrillation
CPT/HCPCS: 36415; 71046; 80048; 81001; 85027

== ENCOUNTER 2024-06-20 10:53 | Day surgery (SDC) | payer MEDICARE, OTHER, SELFPAY ==
--- NOTE | 2024-06-01 13:04 | PCM.HP.BLA ---
History and Physical Date of Admission: 06/20/24 73-year-old man with a history of coronary artery disease status post coronary bypass surgery in 2016 with a WHEELER to the LAD saphenous vein graft to acute marginal branch and aortic valve replacement with a 27 mm Medtronic freestyle stentless bioprosthetic valve. He has been doing quite well. He also has a history of paroxysmal atrial fibrillation and it appears that he underwent DC cardioversion in August of this year there is a sense that he may have had some bradycardia arrhythmias and there was a suggestion that he may need a pacemaker placed. He has also had bilateral pedal edema. He has had no dizziness or diaphoresis no near syncope or syncope. He has been compliant with all his medications. He wanted to have a second opinion regarding his heart rate. Pt had called our office with concerns over an elevated HR. 24 HrHM demonstrated Afib 73% of the time. He is aware of this. Echo demonstrated a preserved EF with normal size atrium. Medical History Paroxysmal atrial fibrillation Hyperlipidemia Type 2 diabetes mellitus without complication Atherosclerosis of coronary artery of [place] heart without angina pectoris Secondary lymphedema Surgical History H/O aortic valve replacement (06/04/15) History of coronary artery bypass surgery (06/04/15) History of cardioversion History of squamous cell carcinoma excision History of bilateral cataract extraction History of bilateral carpal tunnel release History of colonoscopy History of tonsillectomy Family History Father Heart disease Social History Smoking Status: Never smoker alcohol intake: never caffeine: Yes Type: carbonated beverages ROS Const Const: Negative for fatigue, weakness, body ache, fever(s), headache(s), chills, frequent falls, night sweats, daytime sleepiness, difficulty sleeping, excessive sweating, weight gain, weight loss, increased appetite, poor appetite, anorexia or other ENT ENT: Negative for headache(s) Cardio Chest Pain: No Palpitations: Yes Edema: Bilateral Additional Details: wraps both legs Resp Respiratory: Negative for SOB with activity, SOB at rest, SOB orthopnea\SOB lying down, Cough, Coughing up blood/hemoptysis, chest congestion, pain on inspiration, snoring, stridor, wheezing, crackles, paroxysmal nocturnal dyspnea or other Neuro Neuro: Negative for frequent falls, headache(s) or weakness Endo Endo: Negative for fatigue, cold intolerance, heat intolerance, excessive sweating, flushing, increased thirst/drinking, increased hunger, hair loss, hair growth or other Cardiology Exam Const Appearance: cooperative, no acute distress and well developed Orientation: alert, awake and oriented x3 Head Head: normocephalic and atraumatic Mouth: moist mucous membranes Eyes General: appearance normal, both eyes and all related structures Conjunctivae: conjunctivae normal Pupils: PERRL EOM: EOM intact bilaterally Neck Neck: normal visual inspection, no lymphadenopathy and no JVD Carotids: Negative bruit Neck Mass: Negative Neck mass Chest Chest inspection: normal inspection of the chest and symmetric chest movement Auscultation: Bilateral: Clear to Auscultation Cardio Palpation: normal PMI Rhythm: irregularly irregular Heart sounds: S1 normal and S2 normal; Negative rub, gallop or murmur GI GI: normal to inspection, soft, no hepatosplenomegaly and bowel sounds present; Negative tender Neuro General: patient alert, patient awake, patient oriented x3, CN's II-XI intact bilaterally and moves all extremities Extremities Pulses: Normal: Right Posterior Tibial Pulse, Left Posterior Tibial Pulse, Right Radial Pulse and Left Radial Pulse Lower Extremity Edema: None: Bilateral Psych Psychological: normal affect Supplemental Info Supplemental Information Echocardiogram 05/27/2022 Conclusion: 1. Left ventricle is normal in size and thickness. Systolic ejection fraction 60 to 65% with normal wall motion. 2. There is mild mitral annular calcification seen. There is mild mitral valve regurgitation. 3. There is a well-seated bioprosthetic aortic valve is seen. There is no prosthetic valve regurgitation or stenosis seen. 4. There is mild pulmonic valve regurgitation. 5. There is moderate tricuspid valve regurgitation. 6. Right ventricle is mildly enlarged with normal systolic function. 7. Estimated right ventricular systolic pressure is 46 mmHg. Echo Complete W/ Contrast 03/2024 Interpretation Summary Normal LV size. Left ventricular systolic function is normal. The left ventricular ejection fraction is 55 %. Pulmonary artery systolic pressure is 36 mmHg. Mean aortic valve gradient 7 mmHg. Contrast injection was performed. Pharmacologic myocardial perfusion stress test 2023 Conclusion: Normal pharmacologic myocardial perfusion stress test. Preserved ejection fraction. LINWOOD 07/09/1914 Conclusion: 1. Moderate concentric left ventricular hypertrophy with normal systolic function, ejection fraction 65%. 2. Mild left atrial enlargement with minimal spontaneous contrast, no mural or left atrial appendage thrombus. 3. Mild right atrial enlargement with minimal spontaneous contrast, no thrombus. 4. Aneurysmal atrial septum with no right to left shunt of saline contrast. 5. Mild mitral annular calcification with isolated mitral valve strands and mild mitral insufficiency. 6. Mild tricuspid insufficiency. 7. Normal-appearing bioprosthetic aortic valve with trivial transvalvular aortic insufficiency. 8. Trivial pulmonic insufficiency. 9. Calcified aortic root. 10. Mild isolated atherosclerotic plaque of the aortic arch and descending thoracic aorta. Holter monitor from 03/29/2024: Sinus rhythm and paroxysmal atrial fibrillation Minimum heart rate 29 bpm. Average heart rate 59 bpm. Maximum heart rate 122 bpm. Ventricular ectopy 1%. Supraventricular ectopy 0.1%. Longest R to R interval 3.6 seconds at 12:03 AM. Atrial fibrillation 73.2%. 1 ventricular run of 4 beats at 76 bpm at 3:15 AM. The patient kept diary with 1 symptom of irregular heart rate, which did correlate to atrial fibrillation on the scan. Assessment and Plan Assessment & Plan Assessment/Plan (1) Sick sinus syndrome: (2) H/O aortic valve replacement: (3) Atherosclerosis of coronary artery of [place] heart without angina pectoris: (4) Paroxysmal atrial fibrillation: (5) Hyperlipidemia: PLAN: Plan Paroxysmal atrial fibrillation: Most recent HM in 03/2024 demonstrated Sinus rhythm and paroxysmal atrial fibrillation, Minimum heart rate 29 bpm, Average heart rate 59 bpm, Maximum heart rate 122 bpm. Ventricular ectopy 1%. Supraventricular ectopy 0.1%. Longest R to R interval 3.6 seconds at 12:03 AM. Atrial fibrillation 73.2%. For now will continue with metoprolol and eliquis. Reviewed with Dr. Emery and Dr. Layne. Feel that patient would benefit from a pacemaker. Atherosclerosis of coronary artery of [place] heart without angina pectoris: He does have evidence of atherosclerotic cardiovascular disease. He had previously had disease in the LAD and right coronary artery and underwent bypass surgery with a WHEELER to the LAD and saphenous vein graft to the acute marginal branch of the right coronary artery. Stress test in 05/2023 was negative for ischemia. H/O aortic valve replacement: He is status post aortic valve replacement. His last echocardiogram in May of this year demonstrated preserved function well-seated bioprosthetic aortic valve with no regurgitation or stenosis noted and the plan to be to continue following him with yearly echocardiograms. He will also continue with antibiotic prophylaxis.
[2024-06-17 07:59] VITALS: BMI 37.9
== END 2024-06-20 13:30 | disposition home or self-care (01) ==
PROVIDERS: Referring Provider Internal Medicine Cardiovascular Disease; Visit Provider Internal Medicine Cardiovascular Disease
DX: Z53.8 Procedure and treatment not carried out for other reasons (principal); I49.5 Sick sinus syndrome; I48.0 Paroxysmal atrial fibrillation; E11.9 Type 2 diabetes mellitus without complications; Z79.4 Long term (current) use of insulin; I25.10 Atherosclerotic heart disease of native coronary artery without angina pectoris; E78.5 Hyperlipidemia, unspecified; Z79.01 Long term (current) use of anticoagulants; Z79.82 Long term (current) use of aspirin; Z79.899 Other long term (current) drug therapy; Z95.1 Presence of aortocoronary bypass graft
CPT/HCPCS: C1894

== ENCOUNTER → 2024-07-15 | Outpatient (CLI) | payer MEDICARE, OTHER, SELFPAY | END | disposition home or self-care (01) | LOC: PSN 08:28 | PROVIDERS: Referring Provider Physician Assistant Medical; Visit Provider Physician Assistant Medical | DX: R00.2 Palpitations (principal); I48.91 Unspecified atrial fibrillation | CPT/HCPCS: 93225; 93226 ==

== ENCOUNTER → 2024-07-18 | Outpatient (CLI) | payer MEDICARE, OTHER, SELFPAY ==
--- NOTE | 2024-07-18 10:25 | RAD_ITS ---
PROCEDURE: CHEST PA AND LATERAL 07/18/2024 REASON FOR EXAM: SOB TECHNIQUE: Frontal and lateral views of the chest. COMPARISON: Chest x-ray study dated 06/13/2024 FINDINGS: The overall chest x-ray findings are similar when compared to the prior exam. Hardware: Median sternotomy wires and vascular clips are noted. Heart: Heart size is upper limits of normal. Mediastinum: Pulmonary vasculature is prominent centrally. Trachea is midline. Lungs: Prominent interstitial markings are noted throughout the lungs and are similar when compared to the prior exam. This is most compatible with pulmonary edema which may be secondary to congestive heart failure or fluid overload. Underlying pneumonic infiltrates would be another consideration in the right clinical setting. Bones: Arthritic changes of the acromioclavicular joints is noted bilaterally. There is a subtle dextroscoliosis of the thoracic spine. RAD/Chest PA and Lateral IMPRESSION: Chest x-ray findings compatible with pulmonary edema which may be secondary to congestive heart failure or fluid overload. Underlying pneumonic infiltrates would be another consideration in the right cl inical setting. Reading Location: [id number]
[2024-07-18 11:24] LABS: Basophil# 0.02 X10^3/uL; Basophil% 0.2 % (0-1); Eosinophil# 0.09 X10^3/uL; Hematocrit 35.3 % (40-54); Hemoglobin 11.5 g/dL (13.0-16.5); Lymphocyte % 38.8 % (19-41); Mean Corp Hgb Conc 32.6 g/dL (32-36); Mean Corpuscular Hgb 31.7 pg (27.0-32.0); Mean Corpuscular Volume 97.2 fL (80-94); Mean Platelet Vol. 9.6 fl (6.2-12.0); Monocyte# 0.24 X10^3/uL; Monocyte% 2.7 % (0-10); NRBC Flagged by Analyzer 0 % (0-5); Neutrophil # 4.98 X10^3/uL (2.7-7.7); Neutrophil % 56.8 % (47-70); Platelet Count 259 K/mm3 (150-450); RBC Distribution Width CV 15.5 % (11.6-14.6); RBC Distribution Width SD 55.5 fl (35.1-43.9); Red Blood Count 3.63 M/mm3 (4.6-6.2); White Blood Count 8.8 K/mm3 (4.4-11.0)
[2024-07-18 12:20] LABS: ALB/GLOB Ratio 1.3 RATIO (0.9-2.4); AST(SGOT) 23 U/L (<=37); Alanine Aminotransfer ALT/SGPT 34 U/L (<=46); Albumin, Serum 3.7 g/dL (3.4-4.8); Alkaline Phosphatase 75 U/L (40-129); Anion Gap 15 (5-15); BUN 32 mg/dL (4-19); BUN/Creat Ratio 24.2 RATIO (10-20); Calcium,Total 8.8 mg/dL (7.6-11.0); Carbon Dioxide 24.4 mmol/L (21.0-32.0); Chloride 100 mmol/L (98-108); Creatinine, Serum 1.34 mg/dL (0.70-1.20); EST Glomerular Filtration Rate 56 (>60); Globulin 2.8 g/dL (2.2-4.2); Glucose 166 mg/dL (70-99); Potassium 3.8 mmol/L (3.3-5.1); Pro- Brain NATRIURETIC PEPTIDE 1932 pg/mL (<=900); Protein, Total 6.4 g/dL (5.9-8.4); Sodium Level 139 mmol/L (133-145); Total Bilirubin 0.87 mg/dL (0.00-1.30)
== END | disposition home or self-care (01) ==
PROVIDERS: Referring Provider Physician Assistant Medical; Visit Provider Physician Assistant Medical
DX: I48.19 Other persistent atrial fibrillation (principal); R06.02 Shortness of breath; Z79.899 Other long term (current) drug therapy
CPT/HCPCS: 36415; 71046; 80053; 83880; 84443; 85025

== ENCOUNTER 2024-08-10 10:12 | Day surgery (SDC) | payer MEDICARE, OTHER, SELFPAY ==
[2024-08-09 11:06] VITALS: BMI 41.6
--- NOTE | 2024-08-10 12:45 | PCM.OP.PRO2 ---
Non-invasive Procedural Procedure Information Date of Procedure: 08/10/24 Pre-Procedure Diagnosis: Atrial fibrillation Post-Procedure Diagnosis: Atrial fibrillation Procedure Performed:: DC cardioversion Procedure Time Out: 12:11 Procedure Start Time: 12:20 Procedure Stop Time: :23 Special Medications: Intravenous propofol 80 mg Description of procedure: Patient was brought to the noninvasive lab in the postabsorptive state. Informed consent was obtained after appropriate counseling. Patient has been on continuous anticoagulation.. The patient was seen by ok anterior-posterior pads were applied. 300 J of synchronized biphasic DC cardioversion energy were applied with prompt reversal to sinus rhythm. Patient tolerated the procedure well. Procedure findings: Successful DC cardioversion from atrial fibrillation to sinus rhythm. Follow-up as per office protocol For ablation on August 31 at [facility]
== END 2024-08-10 13:25 | disposition home or self-care (01) ==
PROVIDERS: Referring Provider Internal Medicine Cardiovascular Disease; Visit Provider Internal Medicine Cardiovascular Disease
DX: I48.0 Paroxysmal atrial fibrillation (principal); E11.9 Type 2 diabetes mellitus without complications; I25.10 Atherosclerotic heart disease of native coronary artery without angina pectoris; E78.5 Hyperlipidemia, unspecified; Z79.899 Other long term (current) drug therapy; Z79.82 Long term (current) use of aspirin; Z79.01 Long term (current) use of anticoagulants; Z79.84 Long term (current) use of oral hypoglycemic drugs; Z95.1 Presence of aortocoronary bypass graft
CPT/HCPCS: 92960; 93005

== ENCOUNTER 2024-11-25 15:07 | Emergency (ER) | payer MEDICARE, OTHER, SELFPAY ==
[2024-11-25] VITALS (10 sets, daily range): BP systolic 87–143; BP diastolic 65–107; PULSE 69–190; RESP 12–25; TEMP 36.6–36.9; O2SAT 96–100; BMI 38.5
--- NOTE | 2024-11-25 15:40 | EKG12_ITS ---
Test Reason : CP Blood Pressure : */* mmHG Vent. Rate : 179 BPM Atrial Rate : 192 BPM P-R Int : 128 ms QRS Dur : 82 ms QT Int : 238 ms P-R-T Axes : * 62 231 degrees QTcB Int : 410 ms Critical Test Result: High HR Atrial tachycardia Poor R-wave progression ; consider anteroseptal infarct, lead placement, or normal variant Abnormal ECG Confirmed by JUDY CORDERO, JOE ([id number]), editor publications ROXANNE PIÑA ([id number]) on 11/28/2024 9:12:52 AM Referred By: PREETHI/CHRISTA Confirmed By: JOE KIM MD
--- NOTE | 2024-11-25 15:47 | ED.VIS.CHEST ---
HPI History of Present Illness Chief Complaint: Palpitations Informant: patient Narrative Narrative: Patient is a 77-year-old male with history of coronary artery disease, atrial fibrillation, aortic valve replacement, sick sinus syndrome who is status post ablation in August of this year through [facility] (with Dr. Andrew). He is on Eliquis and states that he has been compliant with it since before his cardioversion except for 2 weeks ago he missed 1 dose. He is presenting today with palpitations. He states he woke up at 230 and felt that his heart was pounding. He took an extra dose of his metoprolol this is 25 mg) which he been regularly been instructed to do by cardiology. He states his heart rate has been elevated. He went to his PCP with an EKG and checked vitals. He was in A-fib with RVR and had a low blood pressure. He came to the emergency room. States normal blood pressure for him is on the low side (107/95). He states his home blood pressure cuffs are not registering today. He does note that he had a recent Holter monitor and he received results on Thursday (3 days ago). It did show that he was having intermittent episodes of A-fib and flutter. Patient states he otherwise is well-appearing with no chest pain, shortness of breath, new leg swelling in the feel lightheaded. States up until this episode today he has not felt himself go into any type of arrhythmia. He denies any recent medication changes. No other complaints or concerns at this time [facility] Medical History ASD (atrial septal defect) Persistent atrial fibrillation Sick sinus syndrome Paroxysmal atrial fibrillation Hyperlipidemia Type 2 diabetes mellitus without complication Atherosclerosis of coronary artery of [place] heart without angina pectoris Secondary lymphedema Home Medications ?Medication ?Instructions ?Recorded ?Last Taken ?Type aspirin 81 mg tablet,delayed 81 mg PO DAILY 12/31/22 08/10/24 History release (Adult Low Dose Aspirin) cholecalciferol (vitamin D3) 25 25 mcg PO DAILY 12/31/22 Unknown History mcg (1,000 unit) tablet ferrous sulfate 324 mg (65 mg 324 mg PO DAILY 12/31/22 Unknown History iron) tablet,delayed release folic acid 1 mg tablet 1 mg PO DAILY 12/31/22 Unknown History insulin NPH isoph U-100 human 100 30 unit subcut BID 12/31/22 Unknown History unit/mL subcutaneous suspension (Humulin N NPH U-100 Insulin (isophane susp)) ipratropium 0.5 mg-albuterol 3 mg 3 ml inhalation Q4H PRN shortness 12/31/22 Unknown History (2.5 mg base)/3 mL nebulization of breath soln ipratropium bromide 21 mcg (0.03 2 spray intranasal BID 12/31/22 Unknown History %) nasal spray levothyroxine 125 mcg tablet 125 mcg PO DAILY 12/31/22 08/10/24 History metformin 1,000 mg tablet 1,000 mg PO BID 12/31/22 06/19/24 History multivitamin (Multiple Vitamins 1 tab PO DAILY 12/31/22 Unknown History tablet) vitamin B complex 1 tab PO DAILY 12/31/22 Unknown History fluticasone propionate 50 2 spray intranasal DAILY 01/12/23 Unknown History mcg/actuation nasal spray,suspension insulin glargine 100 50 unit subcut QAM 01/12/23 Unknown History unit-lixisenatide 33 mcg/mL subcutaneous pen (Soliqua 100/33) montelukast 10 mg tablet 10 mg PO QHS 01/12/23 Unknown History spironolactone 25 mg tablet 25 mg PO DAILY #30 tabs 07/15/24 Unknown Rx atorvastatin 80 mg tablet 80 mg PO QHS #90 tabs 07/22/24 Unknown Rx lisinopril 2.5 mg tablet 2.5 mg PO DAILY #90 tabs 07/22/24 08/10/24 Rx apixaban 5 mg tablet (Eliquis) 5 mg PO .COMPLEX #180 tabs 07/26/24 08/10/24 Rx empagliflozin 25 mg tablet 25 mg PO .COMPLEX #90 tabs 07/26/24 Unknown Rx (Jardiance) metoprolol succinate 25 mg 25 mg PO QHS Pt waiting on mail 08/25/24 Unknown Rx tablet,extended release 24 hr order RX #30 tabs furosemide 40 mg tablet (Lasix) 40 mg PO QDAY 09/21/24 Unknown History Allergy/AdvReac Type Severity Reaction Status Date / Time No Known Allergies Allergy Verified 11/25/24 15:12 Family History Father Heart disease Surgical History Status post radiofrequency ablation (RFA) operation for arrhythmia H/O aortic valve replacement (06/04/15) History of coronary artery bypass surgery (06/04/15) History of cardioversion History of squamous cell carcinoma excision History of bilateral cataract extraction History of bilateral carpal tunnel release History of colonoscopy History of tonsillectomy Social History Smoking Status: Never smoker alcohol intake: never caffeine: Yes Type: carbonated beverages ROS ROS ED Constitutional Constitutional ED: Denies chills, fever(s) or sweats Eyes Eyes: Denies blurry vision Cardiovascular Cardiovascular: Reports palpitations and racing heartbeat; Denies chest pain Respiratory/Chest Respiratory/Chest: Denies cough, dyspnea or dyspnea on exertion Gastrointestinal Gastrointestinal: Denies abdominal pain, nausea or vomiting Musculoskeletal Musculoskeletal: Denies arthralgias or myalgias Integumentary Denies rash Neurologic Neurologic: Denies weakness Hematologic/Lymphatic Hematologic/Lymphatic: Reports easy bleeding, easy bruising and other Details: ON Eliquis EXAM Physical Exam Const Vital Signs: 11/25/24 15:08 11/25/24 15:42 11/25/24 15:42 Temperature 98.5 F Temperature Source Temporal Pulse Rate 190 H 165 H Pulse Rate [2] Pulse Rate [3] Pulse Rate [4] Pulse Rate [5] Respiratory Rate 20 H 17 Respiratory Rate [2] Respiratory Rate [3] Respiratory Rate [4] Respiratory Rate [5] Respiratory Effort Respiratory Pattern Blood Pressure 98/73 143/107 H Blood Pressure [2] Blood Pressure [3] Blood Pressure [4] Blood Pressure [5] Blood Pressure Mean 81 Baseline BP 143/107 Pulse Ox 100 100 Oxygen Delivery Method Nasal Cannula Oxygen Delivery Method [2] Oxygen Delivery Method [3] Oxygen Delivery Method [4] Oxygen Delivery Method [5] Oxygen Flow Rate (L/min) 2 Oxygen Flow Rate (L/min) [2] Oxygen Flow Rate (L/min) [3] Oxygen Flow Rate (L/min) [4] Oxygen Flow Rate (L/min) [5] Fraction of Inspired Oxygen (FIO2) [3] EtCo2 - Document during CPR and with ROSC 33 32 EtCo2 - Document during CPR and with ROSC [2] EtCo2 - Document during CPR and with ROSC [3] EtCo2 - Document during CPR and with ROSC [4] EtCo2 - Document during CPR and with ROSC [5] 11/25/24 15:42 11/25/24 15:45 11/25/24 16:00 Temperature Temperature Source Pulse Rate 72 Pulse Rate [2] 176 H Pulse Rate [3] 70 Pulse Rate [4] 71 Pulse Rate [5] 70 Respiratory Rate 25 H Respiratory Rate [2] 16 Respiratory Rate [3] 19 H Respiratory Rate [4] 12 Respiratory Rate [5] 22 H Respiratory Effort Normal Non-Labored Respiratory Pattern Normal Blood Pressure 94/69 Blood Pressure [2] 143/107 H Blood Pressure [3] 105/72 Blood Pressure [4] 105/72 Blood Pressure [5] 117/68 Blood Pressure Mean Baseline BP Pulse Ox 99 Oxygen Delivery Method Room Air Oxygen Delivery Method [2] Nasal Cannula Oxygen Delivery Method [3] Nasal Cannula Oxygen Delivery Method [4] Nasal Cannula Oxygen Delivery Method [5] Nasal Cannula Oxygen Flow Rate (L/min) Oxygen Flow Rate (L/min) [2] 2 Oxygen Flow Rate (L/min) [3] 2 Oxygen Flow Rate (L/min) [4] 2 Oxygen Flow Rate (L/min) [5] 2 Fraction of Inspired Oxygen (FIO2) [3] 36 EtCo2 - Document during CPR and with ROSC 35 EtCo2 - Document during CPR and with ROSC [2] 31 EtCo2 - Document during CPR and with ROSC [3] 33 EtCo2 - Document during CPR and with ROSC [4] 35 EtCo2 - Document during CPR and with ROSC [5] 32 11/25/24 16:20 11/25/24 16:25 11/25/24 16:30 Temperature Temperature Source Pulse Rate 75 73 70 Pulse Rate [2] Pulse Rate [3] Pulse Rate [4] Pulse Rate [5] Respiratory Rate 19 H 22 H 22 H Respiratory Rate [2] Respiratory Rate [3] Respiratory Rate [4] Respiratory Rate [5] Respiratory Effort Respiratory Pattern Blood Pressure 97/66 90/75 93/71 Blood Pressure [2] Blood Pressure [3] Blood Pressure [4] Blood Pressure [5] Blood Pressure Mean Baseline BP Pulse Ox 100 98 99 Oxygen Delivery Method Room Air Room Air Room Air Oxygen Delivery Method [2] Oxygen Delivery Method [3] Oxygen Delivery Method [4] Oxygen Delivery Method [5] Oxygen Flow Rate (L/min) Oxygen Flow Rate (L/min) [2] Oxygen Flow Rate (L/min) [3] Oxygen Flow Rate (L/min) [4] Oxygen Flow Rate (L/min) [5] Fraction of Inspired Oxygen (FIO2) [3] EtCo2 - Document during CPR and with ROSC 35 34 34 EtCo2 - Document during CPR and with ROSC [2] EtCo2 - Document during CPR and with ROSC [3] EtCo2 - Document during CPR and with ROSC [4] EtCo2 - Document during CPR and with ROSC [5] 11/25/24 17:26 Temperature Temperature Source Pulse Rate 69 Pulse Rate [2] Pulse Rate [3] Pulse Rate [4] Pulse Rate [5] Respiratory Rate 13 Respiratory Rate [2] Respiratory Rate [3] Respiratory Rate [4] Respiratory Rate [5] Respiratory Effort Respiratory Pattern Blood Pressure 87/65 L Blood Pressure [2] Blood Pressure [3] Blood Pressure [4] Blood Pressure [5] Blood Pressure Mean 72 Baseline BP Pulse Ox 97 Oxygen Delivery Method Room Air Oxygen Delivery Method [2] Oxygen Delivery Method [3] Oxygen Delivery Method [4] Oxygen Delivery Method [5] Oxygen Flow Rate (L/min) Oxygen Flow Rate (L/min) [2] Oxygen Flow Rate (L/min) [3] Oxygen Flow Rate (L/min) [4] Oxygen Flow Rate (L/min) [5] Fraction of Inspired Oxygen (FIO2) [3] EtCo2 - Document during CPR and with ROSC EtCo2 - Document during CPR and with ROSC [2] EtCo2 - Document during CPR and with ROSC [3] EtCo2 - Document during CPR and with ROSC [4] EtCo2 - Document during CPR and with ROSC [5] Positive well nourished, well developed and obese General Appearance ED: well developed and NAD Nutritional Appearance: obese HEENT Reports moist mucous membranes normocephalic Eyes General Eye ED: Negative for pale conjunctiva Neck supple and no JVD Chest Wall inspection of chest normal and palpation of chest normal Resp normal respiratory effort and clear to auscultation bilaterally Cardio Cardio Narrative: 2+ radial pulses present Rate: tachycardic Rhythm: abnormal rhythm irregularly irregular GI normal to inspection, nondistended, normoactive bowel sounds, soft to palpation and no masses Extremity Extremity Narrative: Chronic appearing Lower extremity edema with ofe wraps on. Neuro oriented x3 Sensorium / Orientation: awake and alert Motor Exam: Negative for general weakness Psych mental status grossly normal Skin no rashes or lesions noted and no wounds MDM MDM MDM Narrative Medical decision making narrative: Patient evaluated for racing heart rate that started around 230 this morning. He is relatively asymptomatic from it. EKG is consistent with atrial fibrillation without ventricular response. On the monitor he is having runs of V. tach versus aberrancy however is not captured on EKG. Initial blood pressure is soft at 98/73. States blood pressures was even lower earlier at his primary care office. Patient has a soft blood pressures no room to treat chemically. He is on Eliquis and has not missed a dose this week but did miss 1 dose last week. Before that he had not missed a dose for months. Discussed risk and benefits of cardioversion including risk of stroke, airway compromise and R-on-T phenomenon/ventricular fibrillation. Did discuss the case with Dr. Sanchez given the patient's complex medical history. He also is in agreement that cardioversion is likely the best course of treatment and thinks the risk of stroke is quite low. Cardioversion performed, see procedure note. Patient tolerated this well. Is not rate controlled. Will obtain a repeat EKG. Will continue cardiac workup given that he has then this fast for over 12 hours to ensure he does not have associated NSTEMI or underlying electrolyte abnormality. High-sensitivity troponin minimally elevated at 41 but on repeat 35. Postprocedure EKG does not show any ischemic changes. Patient remains asymptomatic afterwards. CBC shows chronic anemia, mild leukocytosis but normal platelets. BMP shows chronic renal insufficiency with a creatinine of 1.44 which is near his baseline. His anion gap is mildly elevated at 16. Glucose is at his baseline at 156 which is nonfasting. Patient was given IV fluids a suspect he might have a component of dehydration. Chest x-ray viewed by myself as well as radiology shows mild bibasilar opacities however I suspect this is more atelectasis or chronic. He clinically does not appear fluid overloaded and does not have signs or symptoms of pneumonia or respiratory infection. Do not think requires antibiotics or diuresis at this time. Will ambulate patient for pulse ox. Discussed with cardiology who does not recommend any medication adjustments at this time. 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 Given return precautions. Patient agreeable plan of care. Discharged home in stable condition peer Lab Data Attestation: I reviewed the patient's lab results. Labs: Laboratory Results - last 24 hr 11/25/24 11/25/24 15:38 17:30 WBC 11.9 H RBC 3.76 L Hgb 12.4 L Hct 38.1 L MCV 101.3 H MCH 33.0 H MCHC 32.5 RDW Std Deviation 55.6 H RDW Coeff of [place] 15.0 H Plt Count 260 MPV 9.9 Immature Gran % (Auto) 0.300 Neut % (Auto) 47.0 Lymph % (Auto) 49.8 H [place] % (Auto) 2.5 Eos % (Auto) 0.3 Baso % (Auto) 0.1 Absolute Neuts (auto) 5.6 Absolute Lymphs (auto) 5.91 H Nucleated RBC % 0 Sodium 137 Potassium 4.3 Chloride 98 Carbon Dioxide 24.1 Anion Gap 16 H BUN 40 H Creatinine 1.44 H Estim Creat Clear Calc 58.01 Est GFR (MDRD) Non-Af 51 L BUN/Creatinine Ratio 27.9 H Glucose 156 H Calcium 9.9 Magnesium 2.2 Troponin T High Sens 41 H Troponin T Hi Sens 2 Hr 35 H Radiography Chest X-Ray - ED: 2 View, Read by ED Physician, Read by Radiologist and No Acute Disease Diagnostic Testing: Clinical Impression(s) from Imaging Studies Chest X-Ray 11/25/24 16:24 IMPRESSION: Mild bibasal opacities, differential and recommendations discussed above. Reading Location: [facility] Rhythm Strip Rhythm Strip: A-fib Rate: 179 Ectopy: None EKG Initial EKG: Attestation: I personally reviewed and interpreted this EKG as follows: Interpretation: Atrial Fibrillation Comments: Atrial fibrillation with rapid ventricular response at a rate of 179 bpm Normal axis Nonspecific ST segment changes Prior: Changed Follow-up EKG: Attestation: I personally reviewed and interpreted this EKG as follows: Interpretation: Sinus Rhythm Comments: Normal sinus rhythm at a rate of 70 bpm Normal axis Shortened VT interval [address] segments Management Discussion w/another healthcare provider: Parks And Recreation Manager Procedures Procedural Sedation 1 (Initial Baseline): Consent Signed: Yes Any Problems With Anesthesia: No You/Your family experience fever (hyperthermia) w/anesthesia: Unknown Sedation medication: Etomidate Dose: 10 Route: IV [place]iampati Score: Class III ASA Classification: III Other Procedures Procedure(s): Cardioversion?synchronized Patient placed on continuous monitoring. Sedation performed with etomidate. Once adequate sedation achieved synchronous cardioversion at 100 J performed. Patient tolerated procedure well with conversion to a regular rate. Waiting on EKG. No immediate complications. Critical Care Time Critical Care Time: Yes Critical care time (excluding procedures): 30-74 minutes (35), Discussing w/Patient &/or Family/Top Dyeing Machine Loader, Discussing w/Consultants and Performing Direct Patient Care at Bedside Discharge Plan Triage Chief Complaint: Palpitations ED Provider: Tresa Estrella Dx/Rx/DC Orders Clinical Impression: Atrial fibrillation with RVR, Current use of joint terminal attack controller anticoagulation Instructions: ED AFIB, ED Cardioversion, Electrical Prescriptions: No Action metformin 1,000 mg tablet 1,000 mg PO BID ipratropium-albuterol 0.5 mg-3 mg(2.5 mg base)/3 mL solution for nebulization 3 ml inhalation Q4H PRN (Reason: shortness of breath) aspirin [Adult Low Dose Aspirin] 81 mg tablet,delayed release (DR/EC) 81 mg PO DAILY ferrous sulfate 324 mg (65 mg iron) tablet,delayed release (DR/EC) 324 mg PO DAILY folic acid 1 mg tablet 1 mg PO DAILY levothyroxine 125 mcg tablet 125 mcg PO DAILY multivitamin [Multiple Vitamins] Tablet 1 tab PO DAILY vitamin B complex Tablet 1 tab PO DAILY cholecalciferol (vitamin D3) 25 mcg (1,000 unit) tablet 25 mcg PO DAILY Humulin N NPH U-100 Insulin 100 unit/mL suspension 30 unit subcut BID ipratropium bromide 21 mcg (0.03 %) spray,non-aerosol 2 spray intranasal BID Rx Instructions: administer into each nostril Soliqua 100/33 100 unit-33 mcg/mL insulin pen 50 unit subcut QAM fluticasone propionate 50 mcg/actuation spray,suspension 2 spray intranasal DAILY Patient Comments: SPRAY 2 SPRAYS INTRANASALLY ONCE A DAY montelukast 10 mg tablet 10 mg PO QHS spironolactone 25 mg tablet 25 mg PO DAILY Qty: 30 11RF atorvastatin 80 mg tablet 80 mg PO QHS Qty: 90 3RF lisinopril 2.5 mg tablet 2.5 mg PO DAILY Qty: 90 3RF Eliquis 5 mg tablet 5 mg PO .COMPLEX Qty: 180 3RF Rx Instructions: 5 mg orally Twice daily: fax to [facility] @ ; Jardiance 25 mg tablet 25 mg PO .COMPLEX Qty: 90 3RF Rx Instructions: 25 mg orally daily: Fax to [facility] @ metoprolol succinate 25 mg tablet extended release 24 hr 25 mg PO QHS Qty: 30 11RF furosemide [Lasix] 40 mg tablet 40 mg PO QDAY Primary Care Provider: Tamara Young Referrals: Tamara Young PA [Primary Care Provider] - Activity Restrictions/Additional Instructions: Please follow-up with your pharmacist apprentice through [facility]. Call the office on Thursday for further recommendations from them. At this time we will not make any medication changes. Have any worsening symptoms please return to the emergency room. Print Language: [place]ican Disposition Disposition: Home, Self Care
[2024-11-25 16:00] LABS: Hematocrit 38.1 % (40-54); Hemoglobin 12.4 g/dL (13.0-16.5); Immature Granulocytes Count 0.030 X10^3/uL (0.0-0.0); Mean Corp Hgb Conc 32.5 g/dL (32-36); Mean Corpuscular Volume 101.3 fL (80-94); Mean Platelet Vol. 9.9 fl (6.2-12.0); NRBC Flagged by Analyzer 0 % (0-5); POSITIVE DIFFERENTIAL YES; POSITIVE MORPHOLOGY YES; Platelet Count 260 K/mm3 (150-450); RBC Distribution Width CV 15.0 % (11.6-14.6); RBC Distribution Width SD 55.6 fl (35.1-43.9); Red Blood Count 3.76 M/mm3 (4.6-6.2); White Blood Count 11.9 K/mm3 (4.4-11.0)
[2024-11-25] MEDS: 0.9% Normal Saline (1000mL) 1,000 ML 999 ML IV (16:19)
--- NOTE | 2024-11-25 16:23 | EKG12_ITS ---
Test Reason : REPEAT Blood Pressure : */* mmHG Vent. Rate : 70 BPM Atrial Rate : 70 BPM P-R Int : 108 ms QRS Dur : 102 ms QT Int : 396 ms P-R-T Axes : 58 52 80 degrees QTcB Int : 427 ms Sinus rhythm with short ME Septal infarct , age undetermined Abnormal ECG Confirmed by JUDY CORDERO, JOE ([id number]), mapping editor ROXANNE PIÑA ([id number]) on 11/28/2024 9:13:03 AM Referred By: Confirmed By: JOE KIM MD
--- NOTE | 2024-11-25 16:24 | RAD_ITS ---
PROCEDURE: CHEST 1 VIEW (PORTABLE) 11/25/2024 REASON FOR EXAM: CHEST PAIN TECHNIQUE: Frontal view of the chest. COMPARISON: Chest x-ray July 18, 2024 FINDINGS: Lungs: The lungs are symmetrically expanded. Lung volumes are low. Hazy bibasal ground-glass and airspace opacities noted, left slightly greater than right, similar to the prior exam may be secondary to chronic parenchymal scarring or recurrent mild atelectasis or pneumonitis. Clinical correlation with pulmonary symptoms. Radiographic follow-up is advised to evaluate stability. There is no pulmonary vascular redistribution. Pleura: Small amount of pleural fluid or pleural thickening at the left costophrenic angle. There is no evidence of pneumothorax. Mediastinum: There is no mediastinal widening or mediastinal shift. Heart: The cardiac silhouette is within normal limits for AP portable technique. Kaylen: The pulmonary kaylen are not enlarged or retracted. Osseous: No acute fracture is seen. Median sternotomy changes noted. RAD/Chest 1 View (Portable) IMPRESSION: Mild bibasal opacities, differential and recommendations discussed above. Reading Location: [id number]
[2024-11-25 16:31] LABS: Anion Gap 16 (5-15); BUN 40 mg/dL (4-19); BUN/Creat Ratio 27.9 RATIO (10-20); Calcium,Total 9.9 mg/dL (7.6-11.0); Carbon Dioxide 24.1 mmol/L (21.0-32.0); Chloride 98 mmol/L (98-108); Estimated Creatinine Clearance 58.01 ml/min (50-250); Glucose 156 mg/dL (70-99); Magnesium 2.2 mg/dL (1.5-2.2); Potassium 4.3 mmol/L (3.3-5.1); Troponin T High Sensitivity 41 ng/L (<=22)
[2024-11-25 16:35] LABS: Differential Indicated SCAN CRITERIA MET
[2024-11-25 17:57] LABS: Troponin T High Sens 2 HR 35 ng/L (<=22)
[2024-11-25 18:39] LABS: Differential Comment SCANNED
== END 2024-11-25 19:21 | disposition home or self-care (01) ==
PROVIDERS: Emergency Provider Emergency Medicine; Visit Provider Emergency Medicine
DX: I48.0 Paroxysmal atrial fibrillation (principal); I49.5 Sick sinus syndrome; E11.22 Type 2 diabetes mellitus with diabetic chronic kidney disease; Z79.4 Long term (current) use of insulin; I25.10 Atherosclerotic heart disease of native coronary artery without angina pectoris; E78.5 Hyperlipidemia, unspecified; N18.9 Chronic kidney disease, unspecified; E66.9 Obesity, unspecified; D64.9 Anemia, unspecified; Z95.2 Presence of prosthetic heart valve; Z95.1 Presence of aortocoronary bypass graft; Z79.01 Long term (current) use of anticoagulants; Z79.82 Long term (current) use of aspirin; Z79.84 Long term (current) use of oral hypoglycemic drugs; Z79.899 Other long term (current) drug therapy
CPT/HCPCS: 71045; 80048; 83735; 84484; 85025; 92960; 93005; 96361; 96374; 99152; 99284; A4216